=== PATIENT | male | born 1990 | race Caucasian/White ===

== ENCOUNTER 2016-10-28 20:00 | Inpatient (IN) | payer MEDICAID ==
[~2016-10-28] VITALS: Ht 170.2 cm; Wt 72.0 kg
[2016-10-28] MEDS ORDERED: PARoxetine HCL 10 MG TABLET PO SCH (21:00)
[2016-10-28] MEDS ORDERED: ZOLPIDEM TARTRATE 10 MG TABLET PO PRN (21:00)
[2016-10-28 21:44] VITALS: BP 123/85
[2016-10-29 06:40] LABS: BASOPHILS % (AUTO) 0.4 % (0.0-2.0); EOSINOPHILS % (AUTO) 0.5 % (1.0-6.0); HEMATOCRIT 44.4 % (41-53); HEMOGLOBIN 15.1 g/dL (13.5-17.5); LYMPHOCYTES # (AUTO) 4.1 K/uL (1.0-4.8); LYMPHOCYTES % (AUTO) 49.3 % (22.0-44.0); MEAN CORPUSCULAR HEMOGLOBIN 31.6 pg (26.0-34.0); MEAN CORPUSCULAR VOLUME 93 fL (80-100); MONOCYTES # (AUTO) 0.5 K/uL (0.1-1.0); MONOCYTES % (AUTO) 6.4 % (2.0-9.0); NEUTROPHILS # (AUTO) 3.6 K/uL (1.8-7.7); NEUTROPHILS % (AUTO) 43.4 % (40.0-70.0); PLATELET COUNT (AUTO) 169 K/uL (150-450); RED BLOOD CELL COUNT(AUTO) 4.78 MIL/uL (4.50-5.90); RED CELL DISTRIBUTION WIDTH 14.2 % (11.5-14.5); WHITE BLOOD COUNT (AUTO) 8.3 K/uL (4.5-11.0)
[2016-10-29 07:52] LABS: ALANINE AMINOTRANSFERASE 17 U/L (12-78); ALBUMIN 3.8 g/dL (3.4-5.0); ANION GAP 12 mmol/L (8-16); ASPARTATE AMINOTRANSFERASE 13 U/L (15-37); BILIRUBIN,TOTAL 0.9 mg/dL (0.1-1.0); CARBON DIOXIDE 26 mmol/L (22-29); CHLORIDE 103 mmol/L (98-107); CREATININE 0.97 mg/dL (0.60-1.30); GLOMERULAR FILTR. RATE CALC > 60 mL/min (>60); POTASSIUM 3.9 mmol/L (3.5-5.1); SODIUM SERUM 141 mmol/L (136-145); TOTAL PROTEIN, SERUM 7.1 g/dL (6.4-8.2); UREA NITROGEN, BLOOD 17 mg/dL (7-18)
[2016-10-29] MEDS ORDERED: VENLAFAXINE HCL 150 MG ER CAPSULE PO SCH (09:00)
[2016-10-29 10:07] VITALS: BP 107/72
[2016-10-29] MEDS ORDERED: VENLAFAXINE HCL 75 MG ER CAPSULE PO SCH (10:30)
[2016-10-29] MEDS: PARoxetine HCL 20 MG TABLET PO SCH (11:10)
[2016-10-29 11:31] LABS: APPEARANCE,URINE CLEAR (CLEAR); GLUCOSE, URINE (UA) NEGATIVE (NEGATIVE); KETONES,URINE 15 mg/dL (NEGATIVE); LEUKOCYTE ESTERASE ,URINE NEGATIVE (NEGATIVE); OCCULT BLOOD,URINE NEGATIVE (NEGATIVE); PH,URINE 5.5 (5.0-8.0); PROTEIN,URINE TRACE (NEGATIVE)
[2016-10-29 11:42] LABS: ADD UA MICROSCOPIC YES
[2016-10-29 11:44] LABS: RBC,URINE None Seen /HPF (0-2); WBC,URINE 0-2 /HPF (0-5)
[2016-10-29 18:10] VITALS: BP 107/72
[2016-10-30 09:15] VITALS: BP 110/61
[2016-10-30] MEDS: VENLAFAXINE HCL 75 MG ER CAPSULE PO SCH (09:41)
[2016-10-30] MEDS: PARoxetine HCL 20 MG TABLET PO SCH (09:42)
[2016-10-30 17:17] VITALS: BP 116/72
[2016-10-31] MEDS: PARoxetine HCL 20 MG TABLET PO SCH ×2 (09:00→11:35)
[2016-10-31] MEDS: VENLAFAXINE HCL 75 MG ER CAPSULE PO SCH ×2 (09:00→11:35)
[2016-10-31 11:31] VITALS: BP 100/64
[2016-10-31 16:27] VITALS: BP 118/68
[2016-11-01] MEDS: VENLAFAXINE HCL 75 MG ER CAPSULE PO SCH (09:43)
[2016-11-01] MEDS: PARoxetine HCL 20 MG TABLET PO SCH (09:43)
[2016-11-01 10:43] VITALS: BP 118/71
[2016-11-01 16:00] VITALS: BP 116/72
[2016-11-02 08:36] VITALS: BP 101/66
[2016-11-02] MEDS: PARoxetine HCL 20 MG TABLET PO SCH (08:45)
[2016-11-02 16:26] VITALS: BP 116/72
[2016-11-03 08:00] VITALS: BP 107/64
[2016-11-03 09:17] VITALS: BP 107/64
[2016-11-03] MEDS: PARoxetine HCL 20 MG TABLET PO SCH (11:15)
[2016-11-03 20:54] VITALS: BP 99/58
[2016-11-04 08:30] VITALS: BP 97/58
[2016-11-04] MEDS: DOCUSATE SODIUM 250 MG CAPSULE PO SCH (09:31)
[2016-11-04] MEDS: PARoxetine HCL 20 MG TABLET PO SCH (09:31)
[2016-11-04] MEDS: BREXPIPRAZOLE 1 MG TABLET PO SCH (10:48)
[2016-11-04 21:42] VITALS: BP 99/60
[2016-11-05] MEDS: BREXPIPRAZOLE 1 MG TABLET PO SCH (09:28)
[2016-11-05] MEDS: DOCUSATE SODIUM 250 MG CAPSULE PO SCH (09:29)
[2016-11-05] MEDS: PARoxetine HCL 20 MG TABLET PO SCH (09:29)
[2016-11-05 11:19] VITALS: BP 101/66
[2016-11-05 18:38] VITALS: BP 105/55
[2016-11-06 09:01] VITALS: BP 11/61
[2016-11-06] MEDS: PARoxetine HCL 20 MG TABLET PO SCH (09:30)
[2016-11-06] MEDS: BREXPIPRAZOLE 1 MG TABLET PO SCH (09:30)
[2016-11-06] MEDS: DOCUSATE SODIUM 250 MG CAPSULE PO SCH (09:30)
[2016-11-06] MEDS ORDERED: PHENYLEPHRINE/SHK LV/MIN OIL/PET 57 GM OINTMENT TP PRN (14:45)
[2016-11-06 17:35] VITALS: BP 102/56
[2016-11-07] MEDS: DOCUSATE SODIUM 250 MG CAPSULE PO SCH (10:15)
[2016-11-07] MEDS: PARoxetine HCL 20 MG TABLET PO SCH (10:15)
[2016-11-07] MEDS: BREXPIPRAZOLE 1 MG TABLET PO SCH (10:16)
[2016-11-07 10:18] VITALS: BP 96/59
[2016-11-07 16:46] VITALS: BP 97/53
[2016-11-08 08:08] VITALS: BP 98/56
[2016-11-08] MEDS: DOCUSATE SODIUM 250 MG CAPSULE PO SCH (09:44)
[2016-11-08] MEDS: PARoxetine HCL 20 MG TABLET PO SCH (09:45)
[2016-11-08] MEDS: BREXPIPRAZOLE 1 MG TABLET PO SCH (09:45)
[2016-11-08 16:22] VITALS: BP 92/64
[2016-11-09 09:13] VITALS: BP 95/56
[2016-11-09] MEDS: BREXPIPRAZOLE 1 MG TABLET PO SCH (09:29)
[2016-11-09] MEDS: PARoxetine HCL 20 MG TABLET PO SCH (09:29)
[2016-11-09] MEDS: DOCUSATE SODIUM 250 MG CAPSULE PO SCH (09:29)
[2016-11-09 16:24] VITALS: BP 113/63
[2016-11-09] MEDS: CYPROHEPTADINE HCL 4 MG TABLET PO SCH (20:57)
[2016-11-10 08:09] VITALS: BP 110/63
[2016-11-10] MEDS: BREXPIPRAZOLE 1 MG TABLET PO SCH (09:49)
[2016-11-10] MEDS: CYPROHEPTADINE HCL 4 MG TABLET PO SCH ×4 (09:49→20:47)
[2016-11-10] MEDS: PARoxetine HCL 20 MG TABLET PO SCH (09:50)
[2016-11-10] MEDS: DOCUSATE SODIUM 250 MG CAPSULE PO SCH (09:50)
[2016-11-10 16:09] VITALS: BP 98/63
[2016-11-11 08:06] VITALS: BP 101/62
[2016-11-11] MEDS: DOCUSATE SODIUM 250 MG CAPSULE PO SCH (08:39)
[2016-11-11] MEDS: CYPROHEPTADINE HCL 4 MG TABLET PO SCH ×4 (08:39→20:31)
[2016-11-11] MEDS: PARoxetine HCL 20 MG TABLET PO SCH (08:39)
[2016-11-11] MEDS: BREXPIPRAZOLE 1 MG TABLET PO SCH (08:39)
[2016-11-11] MEDS ORDERED: PARO20TA24 PO (09:38)
[2016-11-11] MEDS ORDERED: BREX1TAB PO (09:38)
[2016-11-11] MEDS ORDERED: CYPR4TAB35 PO (09:40)
[2016-11-11] MEDS ORDERED: DOCU250C91 PO (09:40)
[2016-11-11] MEDS ORDERED: BREXPIPRAZOLE 1 MG TABLET PO ONE (10:15)
[2016-11-11 18:35] VITALS: BP 93/55
[2016-11-12] MEDS: DOCUSATE SODIUM 250 MG CAPSULE PO SCH (08:32)
[2016-11-12] MEDS: PARoxetine HCL 20 MG TABLET PO SCH (08:32)
[2016-11-12] MEDS: BREXPIPRAZOLE 1 MG TABLET PO SCH (08:33)
[2016-11-12] MEDS: CYPROHEPTADINE HCL 4 MG TABLET PO SCH ×4 (08:33→20:47)
[2016-11-12 09:59] VITALS: BP 108/66
[2016-11-12 20:43] VITALS: BP 100/62
[2016-11-13 08:00] VITALS: BP 100/59
[2016-11-13] MEDS: PARoxetine HCL 20 MG TABLET PO SCH (11:44)
[2016-11-13] MEDS: CYPROHEPTADINE HCL 4 MG TABLET PO SCH ×4 (11:45→20:09)
[2016-11-13] MEDS: DOCUSATE SODIUM 250 MG CAPSULE PO SCH (11:45)
[2016-11-13] MEDS: BREXPIPRAZOLE 1 MG TABLET PO SCH (11:45)
[2016-11-13 18:09] VITALS: BP 116/76
[2016-11-14] MEDS: DOCUSATE SODIUM 250 MG CAPSULE PO SCH (08:29)
[2016-11-14] MEDS: PARoxetine HCL 20 MG TABLET PO SCH (08:30)
[2016-11-14] MEDS: CYPROHEPTADINE HCL 4 MG TABLET PO SCH ×4 (08:30→20:51)
[2016-11-14] MEDS: BREXPIPRAZOLE 1 MG TABLET PO SCH (08:30)
[2016-11-14 09:47] VITALS: BP 120/80
[2016-11-14 16:38] VITALS: BP 118/59
[2016-11-15 08:08] VITALS: BP 109/67
[2016-11-15] MEDS: DOCUSATE SODIUM 250 MG CAPSULE PO SCH (08:32)
[2016-11-15] MEDS: PARoxetine HCL 20 MG TABLET PO SCH (08:32)
[2016-11-15] MEDS: BREXPIPRAZOLE 1 MG TABLET PO SCH (08:33)
[2016-11-15] MEDS: CYPROHEPTADINE HCL 4 MG TABLET PO SCH ×4 (08:33→20:03)
[2016-11-15 17:38] VITALS: BP 98/58
[2016-11-16 08:22] VITALS: BP 98/58
[2016-11-16] MEDS: PARoxetine HCL 20 MG TABLET PO SCH (09:52)
[2016-11-16] MEDS: DOCUSATE SODIUM 250 MG CAPSULE PO SCH (09:52)
[2016-11-16] MEDS: CYPROHEPTADINE HCL 4 MG TABLET PO SCH ×4 (09:53→20:40)
[2016-11-16] MEDS: BREXPIPRAZOLE 2 MG TABLET PO SCH (09:53)
[2016-11-16 17:13] VITALS: BP 102/67
[2016-11-17] MEDS: DOCUSATE SODIUM 250 MG CAPSULE PO SCH (09:02)
[2016-11-17] MEDS: PARoxetine HCL 20 MG TABLET PO SCH (09:02)
[2016-11-17] MEDS: CYPROHEPTADINE HCL 4 MG TABLET PO SCH ×4 (09:03→20:16)
[2016-11-17] MEDS: BREXPIPRAZOLE 2 MG TABLET PO SCH (09:03)
[2016-11-17 09:42] VITALS: BP 116/76
[2016-11-17 17:31] VITALS: BP 102/62
[2016-11-18] MEDS: CYPROHEPTADINE HCL 4 MG TABLET PO SCH ×4 (08:33→20:45)
[2016-11-18] MEDS: DOCUSATE SODIUM 250 MG CAPSULE PO SCH (08:34)
[2016-11-18] MEDS: PARoxetine HCL 20 MG TABLET PO SCH (08:34)
[2016-11-18] MEDS: BREXPIPRAZOLE 2 MG TABLET PO SCH (08:34)
[2016-11-18 09:57] VITALS: BP 99/58
[2016-11-18 22:33] VITALS: BP 109/73
[2016-11-19 08:00] VITALS: BP 98/56
[2016-11-19] MEDS: CYPROHEPTADINE HCL 4 MG TABLET PO SCH ×4 (09:09→20:24)
[2016-11-19] MEDS: BREXPIPRAZOLE 2 MG TABLET PO SCH (09:09)
[2016-11-19] MEDS: DOCUSATE SODIUM 250 MG CAPSULE PO SCH (09:10)
[2016-11-19] MEDS: PARoxetine HCL 20 MG TABLET PO SCH (09:10)
[2016-11-19 19:20] VITALS: BP 101/64
[2016-11-20] MEDS: DOCUSATE SODIUM 250 MG CAPSULE PO SCH (09:16)
[2016-11-20] MEDS: PARoxetine HCL 20 MG TABLET PO SCH (09:16)
[2016-11-20] MEDS: CYPROHEPTADINE HCL 4 MG TABLET PO SCH ×4 (09:17→20:30)
[2016-11-20] MEDS: BREXPIPRAZOLE 2 MG TABLET PO SCH (09:17)
[2016-11-20 09:30] VITALS: BP 103/53
[2016-11-20 17:17] VITALS: BP 103/72
[2016-11-21] MEDS: DOCUSATE SODIUM 250 MG CAPSULE PO SCH (08:16)
[2016-11-21] MEDS: BREXPIPRAZOLE 2 MG TABLET PO SCH (08:17)
[2016-11-21] MEDS: PARoxetine HCL 20 MG TABLET PO SCH (08:17)
[2016-11-21] MEDS: CYPROHEPTADINE HCL 4 MG TABLET PO SCH ×4 (08:17→20:35)
[2016-11-21 08:48] VITALS: BP 96/57
[2016-11-21 18:24] VITALS: BP 118/69
[2016-11-21] MEDS: LORazepam 2 MG TABLET PO PRN (19:16)
[2016-11-22 08:46] VITALS: BP 96/55
[2016-11-22] MEDS: PARoxetine HCL 20 MG TABLET PO SCH (09:09)
[2016-11-22] MEDS: DOCUSATE SODIUM 250 MG CAPSULE PO SCH (09:09)
[2016-11-22] MEDS: CYPROHEPTADINE HCL 4 MG TABLET PO SCH ×4 (09:10→20:14)
[2016-11-22] MEDS: BREXPIPRAZOLE 2 MG TABLET PO SCH (09:10)
[2016-11-22 11:20] VITALS: BP 107/57
[2016-11-22] MEDS: LORazepam 2 MG TABLET PO PRN (12:38)
[2016-11-22 17:11] VITALS: BP 112/64
[2016-11-23 08:38] VITALS: BP 102/55
[2016-11-23] MEDS: BREXPIPRAZOLE 2 MG TABLET PO SCH (09:00)
[2016-11-23] MEDS: DOCUSATE SODIUM 250 MG CAPSULE PO SCH (09:00)
[2016-11-23] MEDS: CYPROHEPTADINE HCL 4 MG TABLET PO SCH ×4 (09:00→20:19)
[2016-11-23] MEDS: PARoxetine HCL 20 MG TABLET PO SCH (09:00)
[2016-11-23] MEDS: LORazepam 2 MG TABLET PO PRN (17:27)
[2016-11-23 19:50] VITALS: BP 104/62
[2016-11-24 05:22] LABS: GLUCOSE,POINT OF CARE 105 MG/DL (70-110)
[2016-11-24 08:44] VITALS: BP 113/57
[2016-11-24] MEDS: CYPROHEPTADINE HCL 4 MG TABLET PO SCH ×4 (09:25→20:56)
[2016-11-24] MEDS: BREXPIPRAZOLE 2 MG TABLET PO SCH (09:25)
[2016-11-24] MEDS: DOCUSATE SODIUM 250 MG CAPSULE PO SCH (09:26)
[2016-11-24] MEDS: PARoxetine HCL 20 MG TABLET PO SCH (09:26)
[2016-11-24 16:39] VITALS: BP 103/52
[2016-11-25] MEDS: DOCUSATE SODIUM 250 MG CAPSULE PO SCH (09:16)
[2016-11-25] MEDS: PARoxetine HCL 20 MG TABLET PO SCH (09:16)
[2016-11-25] MEDS: CYPROHEPTADINE HCL 4 MG TABLET PO SCH ×4 (09:16→20:22)
[2016-11-25] MEDS: BREXPIPRAZOLE 2 MG TABLET PO SCH (09:17)
[2016-11-25 10:34] VITALS: BP 100/58
[2016-11-25 19:35] VITALS: BP 102/58
[2016-11-26] MEDS ORDERED: BREX2TAB PO (07:29)
[2016-11-26 08:00] VITALS: BP 104/58
[2016-11-26] MEDS: CYPROHEPTADINE HCL 4 MG TABLET PO SCH (09:45)
[2016-11-26] MEDS: DOCUSATE SODIUM 250 MG CAPSULE PO SCH (09:45)
[2016-11-26] MEDS: PARoxetine HCL 20 MG TABLET PO SCH (09:45)
[2016-11-26] MEDS: BREXPIPRAZOLE 2 MG TABLET PO SCH (09:46)
== END 2016-11-26 10:30 | disposition home or self-care (01) | DRG 751 ==
LOC: 3EI 20:00
PROVIDERS: ADMIT Psychiatry & Neurology Child & Adolescent Psychiatry; ATTEND Psychiatry & Neurology Child & Adolescent Psychiatry
DX: F33.3 Major depressive disorder, recurrent, severe with psychotic symptoms (principal); R45.851 Suicidal ideations; R63.0 Anorexia; K59.00 Constipation, unspecified; G47.00 Insomnia, unspecified; R51 Headache; R45.87 Impulsiveness; Z79.899 Other long term (current) drug therapy; Z68.24 Body mass index [BMI] 24.0-24.9, adult
CPT/HCPCS: 80307; 82962; 87081; 97161; 97165

== ENCOUNTER 2016-12-12 17:27 | Inpatient (IN) | payer MEDICAID, OTHER ==
[~2016-12-12] VITALS: Ht 167.6 cm; Wt 75.4 kg
[~2016-12-12 17:27] MED LIST: BREX2TAB PO; CYPR4TAB35 PO; DOCU250C91 PO; PARO20TA24 PO
[2016-12-12 18:00] LABS: BASOPHILS # (AUTO) 0.03 K/uL (0.00-0.20); BASOPHILS % (AUTO) 0.5 % (0.0-2.0); EOSINOPHILS # (AUTO) 0.04 K/uL (0.00-0.70); EOSINOPHILS % (AUTO) 0.63 % (1.0-6.0); HEMATOCRIT 38.2 % (41-53); HEMOGLOBIN 12.8 g/dL (13.5-17.5); LYMPHOCYTES # (AUTO) 2.5 K/uL (1.0-4.8); LYMPHOCYTES % (AUTO) 39.9 % (22.0-44.0); MEAN CORPUSCULAR HEMOGLOBIN 32.3 pg (26.0-34.0); MEAN CORPUSCULAR HGB CONC 33.6 G/dL (31.0-37.0); MEAN CORPUSCULAR VOLUME 96 fL (80-100); MONOCYTES # (AUTO) 0.3 K/uL (0.1-1.0); MONOCYTES % (AUTO) 4.8 % (2.0-9.0); NEUTROPHILS # (AUTO) 3.4 K/uL (1.8-7.7); NEUTROPHILS % (AUTO) 54.3 % (40.0-70.0); PLATELET COUNT (AUTO) 160 K/uL (150-450); RED BLOOD CELL COUNT(AUTO) 3.98 MIL/uL (4.50-5.90); RED CELL DISTRIBUTION WIDTH 14.2 % (11.5-14.5); WHITE BLOOD COUNT (AUTO) 6.3 K/uL (4.5-11.0)
[2016-12-12 18:21] LABS: ANION GAP 9 mmol/L (8-16); CALCIUM, TOTAL 8.9 mg/dL (8.8-10.5); CARBON DIOXIDE 30 mmol/L (22-29); CHLORIDE 102 mmol/L (98-107); CREATININE 0.75 mg/dL (0.60-1.30); GLOMERULAR FILTR. RATE CALC > 60 mL/min (>60); POTASSIUM 3.1 mmol/L (3.5-5.1); SODIUM SERUM 141 mmol/L (136-145); UREA NITROGEN, BLOOD 12 mg/dL (7-18)
[2016-12-12 18:27] LABS: ALANINE AMINOTRANSFERASE 190 U/L (12-78); ALBUMIN 3.9 g/dL (3.4-5.0); ASPARTATE AMINOTRANSFERASE 88 U/L (15-37); BILIRUBIN,TOTAL 0.7 mg/dL (0.1-1.0); TOTAL PROTEIN, SERUM 7.5 g/dL (6.4-8.2)
[2016-12-12] MEDS ORDERED: LORazepam 2 MG TABLET PO ONE (19:30)
[2016-12-12] MEDS ORDERED: POTASSIUM CHLORIDE 20 MEQ ER TABLET PO ONE (20:00)
[2016-12-12] MEDS ORDERED: HALOPERIDOL 5 MG TABLET PO PRN (20:15)
[2016-12-12] MEDS ORDERED: LORazepam 2 MG TABLET PO PRN (20:15)
[2016-12-12] MEDS ORDERED: ZOLPIDEM TARTRATE 10 MG TABLET PO PRN (20:15)
[2016-12-12 20:44] LABS: CHOL/HDL RATIO 3.6 (4.2-7.3)
[2016-12-12 22:11] VITALS: BP 134/82
[2016-12-13 08:12] VITALS: BP 105/55
[2016-12-13 08:16] VITALS: BP 105/55
[2016-12-13] MEDS ORDERED: ONDANSETRON HCL 4 MG TABLET PO PRN (08:30)
[2016-12-13] MEDS ORDERED: IBUPROFEN 600 MG TABLET PO PRN (08:30)
[2016-12-13] MEDS ORDERED: BENZOCAINE/MENTHOL LOZENGE [8 LOZENGES/PACKET] MM PRN (08:30)
[2016-12-13] MEDS ORDERED: MAG HYDROX/AL HYDROX/SIMETH ES 30 ML SUSPENSION UDCUP PO PRN (08:30)
[2016-12-13] MEDS ORDERED: MAGNESIUM HYDROXIDE SUSPENSION 30 ML UDCUP PO PRN (08:30)
[2016-12-13] MEDS ORDERED: CloNIDine HCL 0.1 MG TABLET PO PRN (08:30)
[2016-12-13] MEDS ORDERED: BACITRACIN 28.4 GM OINTMENT TP PRN (08:30)
[2016-12-13] MEDS ORDERED: PETROLATUM,WHITE 71 GM JELLY TP PRN (08:30)
[2016-12-13] MEDS ORDERED: LOPERAMIDE HCL 2 MG CAPSULE PO PRN (08:30)
[2016-12-13] MEDS ORDERED: ACETAMINOPHEN 325 MG TABLET PO PRN (08:30)
[2016-12-13] MEDS ORDERED: ALBUTEROL SULFATE HFA 90 MCG/PUFF 8 GM INHALER IH PRN (08:30)
[2016-12-13] MEDS: PARoxetine HCL 20 MG TABLET PO SCH (08:50)
[2016-12-13] MEDS ORDERED: POTASSIUM CHLORIDE 20 MEQ ER TABLET PO ONE (09:30)
[2016-12-13 17:01] VITALS: BP 117/67
[2016-12-14 08:10] VITALS: BP 102/55
[2016-12-14] MEDS: PARoxetine HCL 20 MG TABLET PO SCH (08:49)
[2016-12-14 16:31] VITALS: BP 113/90
[2016-12-15 08:30] VITALS: BP 111/69
[2016-12-15] MEDS: PARoxetine HCL 20 MG TABLET PO SCH (08:42)
[2016-12-16 14:25] LABS: HEPATITIS Bs ANTIGEN SCREEN P Negative (Negative); HEPATITIS C AB SCREEN <0.1 s/co ratio (0.0-0.9)
== END 2016-12-15 14:42 | disposition home or self-care (01) | DRG 754 ==
LOC: EMS 17:29 → 3EI 20:30
PROVIDERS: ADMIT Psychiatry & Neurology Psychiatry; ATTEND Psychiatry & Neurology Child & Adolescent Psychiatry
DX: F32.9 Major depressive disorder, single episode, unspecified (principal); R45.851 Suicidal ideations; F25.9 Schizoaffective disorder, unspecified; R74.0 Nonspecific elevation of levels of transaminase and lactic acid dehydrogenase [LDH]; E87.6 Hypokalemia; F41.9 Anxiety disorder, unspecified; K46.9 Unspecified abdominal hernia without obstruction or gangrene; K59.00 Constipation, unspecified; G47.00 Insomnia, unspecified; Z53.21 Procedure and treatment not carried out due to patient leaving prior to being seen by health care provider; Z79.899 Other long term (current) drug therapy
CPT/HCPCS: 80074; 84132; 99285; G0480

== ENCOUNTER 2017-01-31 15:03 | Emergency (ER) | payer MEDICAID, OTHER ==
[~2017-01-31] VITALS: Ht 175.3 cm; Wt 90.9 kg
[~2017-01-31 15:03] MED LIST changes: -BREX2TAB PO; -CYPR4TAB35 PO; -DOCU250C91 PO
[2017-01-31] MEDS ORDERED: ARIP5TAB9 PO (15:06)
[2017-01-31 15:37] LABS: BASOPHILS % (AUTO) 0.5 % (0.0-2.0); EOSINOPHILS % (AUTO) 0.8 % (1.0-6.0); HEMOGLOBIN 14.8 g/dL (13.5-17.5); LYMPHOCYTES # (AUTO) 2.9 K/uL (1.0-4.8); LYMPHOCYTES % (AUTO) 46.6 % (22.0-44.0); MEAN CORPUSCULAR HEMOGLOBIN 31.8 pg (26.0-34.0); MEAN CORPUSCULAR HGB CONC 34.4 G/dL (31.0-37.0); MEAN CORPUSCULAR VOLUME 93 fL (80-100); MONOCYTES # (AUTO) 0.4 K/uL (0.1-1.0); MONOCYTES % (AUTO) 6.4 % (2.0-9.0); NEUTROPHILS # (AUTO) 2.8 K/uL (1.8-7.7); NEUTROPHILS % (AUTO) 45.7 % (40.0-70.0); PLATELET COUNT (AUTO) 155 K/uL (150-450); RED BLOOD CELL COUNT(AUTO) 4.65 MIL/uL (4.50-5.90); RED CELL DISTRIBUTION WIDTH 12.9 % (11.5-14.5); WHITE BLOOD COUNT (AUTO) 6.1 K/uL (4.5-11.0)
[2017-01-31 15:42] LABS: ANION GAP 8 mmol/L (8-16); CALCIUM, TOTAL 8.7 mg/dL (8.8-10.5); CARBON DIOXIDE 29 mmol/L (22-29); CHLORIDE 104 mmol/L (98-107); CREATININE 0.76 mg/dL (0.60-1.30); GLOMERULAR FILTR. RATE CALC > 60 mL/min (>60); POTASSIUM 3.7 mmol/L (3.5-5.1); SODIUM SERUM 141 mmol/L (136-145); UREA NITROGEN, BLOOD 14 mg/dL (7-18)
[2017-01-31 15:49] LABS: ALANINE AMINOTRANSFERASE 37 U/L (12-78); ALBUMIN 3.9 g/dL (3.4-5.0); ASPARTATE AMINOTRANSFERASE 21 U/L (15-37); BILIRUBIN,TOTAL 0.5 mg/dL (0.1-1.0); TOTAL PROTEIN, SERUM 7.4 g/dL (6.4-8.2)
[2017-01-31] MEDS ORDERED: IBUPROFEN 600 MG TABLET PO ONE (17:15)
[2017-01-31 17:18] VITALS: BP 125/77
== END 2017-01-31 17:23 | disposition home or self-care (01) ==
LOC: EMS 15:04
DX: F25.9 Schizoaffective disorder, unspecified (principal)
CPT/HCPCS: 36415; 80053; 80307; 85025; 99284; G0480

== ENCOUNTER 2017-01-31 20:48 | Emergency (ER) | payer OTHER ==
[~2017-01-31] VITALS: Ht 172.7 cm; Wt 90.9 kg
[~2017-01-31 20:48] MED LIST changes: +ARIP5TAB9 PO
[2017-01-31 22:06] VITALS: BP 132/75
== END 2017-01-31 22:08 | disposition home or self-care (01) ==
LOC: EMS 20:49
DX: F41.9 Anxiety disorder, unspecified (principal); R45.851 Suicidal ideations
CPT/HCPCS: 99284

== ENCOUNTER 2017-02-15 18:48 | Inpatient (IN) | payer MEDICAID, OTHER ==
[~2017-02-15] VITALS: Ht 172.7 cm; Wt 87.5 kg
[2017-02-15] MEDS ORDERED: DOCU250C91 PO (19:11)
[2017-02-15] MEDS ORDERED: CYPR4TAB35 PO (19:11)
[2017-02-15] MEDS ORDERED: DIVA500T35 PO (19:11)
[2017-02-15 20:27] LABS: BASOPHILS % (AUTO) 0.3 % (0.0-2.0); EOSINOPHILS % (AUTO) 0.8 % (1.0-6.0); HEMATOCRIT 41.8 % (41-53); HEMOGLOBIN 14.5 g/dL (13.5-17.5); LYMPHOCYTES # (AUTO) 2.8 K/uL (1.0-4.8); LYMPHOCYTES % (AUTO) 39.8 % (22.0-44.0); MEAN CORPUSCULAR HEMOGLOBIN 31.4 pg (26.0-34.0); MEAN CORPUSCULAR HGB CONC 34.6 G/dL (31.0-37.0); MEAN CORPUSCULAR VOLUME 91 fL (80-100); MONOCYTES # (AUTO) 0.4 K/uL (0.1-1.0); MONOCYTES % (AUTO) 6.4 % (2.0-9.0); NEUTROPHILS # (AUTO) 3.7 K/uL (1.8-7.7); NEUTROPHILS % (AUTO) 52.7 % (40.0-70.0); PLATELET COUNT (AUTO) 158 K/uL (150-450); RED CELL DISTRIBUTION WIDTH 12.7 % (11.5-14.5)
[2017-02-15 20:35] LABS: ANION GAP 8 mmol/L (8-16); CALCIUM, TOTAL 9.2 mg/dL (8.8-10.5); CARBON DIOXIDE 31 mmol/L (22-29); CHLORIDE 107 mmol/L (98-107); GLOMERULAR FILTR. RATE CALC > 60 mL/min (>60); SODIUM SERUM 146 mmol/L (136-145); UREA NITROGEN, BLOOD 17 mg/dL (7-18)
[2017-02-15 20:40] LABS: ALANINE AMINOTRANSFERASE 34 U/L (12-78); ALBUMIN 3.8 g/dL (3.4-5.0); ASPARTATE AMINOTRANSFERASE 21 U/L (15-37); BILIRUBIN,TOTAL 0.4 mg/dL (0.1-1.0); TOTAL PROTEIN, SERUM 7.6 g/dL (6.4-8.2)
[2017-02-15] MEDS ORDERED: LORazepam 2 MG TABLET PO PRN (22:15)
[2017-02-15] MEDS ORDERED: HALOPERIDOL 5 MG TABLET PO PRN (22:15)
[2017-02-15] MEDS ORDERED: ZOLPIDEM TARTRATE 10 MG TABLET PO PRN (22:15)
[2017-02-16 01:37] LABS: APPEARANCE,URINE CLEAR (CLEAR); GLUCOSE, URINE (UA) NEGATIVE (NEGATIVE); KETONES,URINE NEGATIVE (NEGATIVE); LEUKOCYTE ESTERASE ,URINE NEGATIVE (NEGATIVE); OCCULT BLOOD,URINE NEGATIVE (NEGATIVE); PROTEIN,URINE NEGATIVE (NEGATIVE)
[2017-02-16 01:38] LABS: ADD UA MICROSCOPIC NO
[2017-02-16 02:43] VITALS: BP 117/74
[2017-02-16 06:51] LABS: CHOL/HDL RATIO 3.5 (4.2-7.3)
[2017-02-16] MEDS ORDERED: BACITRACIN 28.4 GM OINTMENT TP PRN (10:45)
[2017-02-16] MEDS ORDERED: ACETAMINOPHEN 325 MG TABLET PO PRN (10:45)
[2017-02-16] MEDS ORDERED: BENZOCAINE/MENTHOL LOZENGE [8 LOZENGES/PACKET] MM PRN (10:45)
[2017-02-16] MEDS ORDERED: ALBUTEROL SULFATE HFA 90 MCG/PUFF 8 GM INHALER IH PRN (10:45)
[2017-02-16] MEDS ORDERED: PETROLATUM,WHITE 71 GM JELLY TP PRN (10:45)
[2017-02-16] MEDS ORDERED: MAG HYDROX/AL HYDROX/SIMETH ES 30 ML SUSPENSION UDCUP PO PRN (10:45)
[2017-02-16] MEDS ORDERED: ONDANSETRON HCL 4 MG TABLET PO PRN (10:45)
[2017-02-16] MEDS ORDERED: MAGNESIUM HYDROXIDE SUSPENSION 30 ML UDCUP PO PRN (10:45)
[2017-02-16] MEDS ORDERED: LOPERAMIDE HCL 2 MG CAPSULE PO PRN (10:45)
[2017-02-16] MEDS ORDERED: CloNIDine HCL 0.1 MG TABLET PO PRN (10:45)
[2017-02-16 11:33] VITALS: BP 108/56
[2017-02-16 16:50] VITALS: BP 108/60
[2017-02-16] MEDS: PARoxetine HCL 20 MG TABLET PO SCH (20:14)
[2017-02-17 03:05] VITALS: BP 119/74
[2017-02-17] MEDS: IBUPROFEN 600 MG TABLET PO PRN (03:05)
[2017-02-17 07:29] LABS: THYROID STIMULATING HORMONE 0.51 uIU/mL (0.36-3.74)
[2017-02-17 08:00] VITALS: BP 115/60
[2017-02-17] MEDS: ARIPiprazole 5 MG TABLET PO SCH (08:34)
[2017-02-17 16:30] VITALS: BP 127/78
[2017-02-17] MEDS: PARoxetine HCL 20 MG TABLET PO SCH (21:26)
[2017-02-18] MEDS: ARIPiprazole 5 MG TABLET PO SCH (09:26)
[2017-02-18] MEDS: IBUPROFEN 600 MG TABLET PO PRN (09:37)
[2017-02-18 09:40] VITALS: BP 110/61
[2017-02-18 10:37] VITALS: BP 125/74
[2017-02-18 11:19] VITALS: BP 125/74
[2017-02-18 16:50] VITALS: BP 124/66
[2017-02-18] MEDS: PARoxetine HCL 20 MG TABLET PO SCH (20:21)
[2017-02-19 08:30] VITALS: BP 121/74
[2017-02-19] MEDS: ARIPiprazole 5 MG TABLET PO SCH (09:10)
[2017-02-19] MEDS: IBUPROFEN 600 MG TABLET PO PRN (09:10)
== END 2017-02-19 13:32 | disposition home or self-care (01) | DRG 751 ==
LOC: EMS 18:50 → EEVIPCON 18:50 → AHU 22:13 → 3EI 23:53
PROVIDERS: ADMIT Psychiatry & Neurology Psychiatry; ATTEND Psychiatry & Neurology Psychiatry
DX: F33.3 Major depressive disorder, recurrent, severe with psychotic symptoms (principal); E87.0 Hyperosmolality and hypernatremia; R45.851 Suicidal ideations; G47.00 Insomnia, unspecified; K59.00 Constipation, unspecified; R45.87 Impulsiveness; Z63.9 Problem related to primary support group, unspecified
CPT/HCPCS: 84295; 84443; 99285; G0480

== ENCOUNTER 2017-08-21 16:37 | Inpatient (IN) | payer MEDICAID, OTHER ==
[~2017-08-21] VITALS: Ht 170.2 cm; Wt 75.2 kg
[~2017-08-21 16:37] MED LIST changes: +ARIP5TAB8 PO; -ARIP5TAB9 PO
[2017-08-21 17:27] LABS: BASOPHILS # (AUTO) 0.04 K/uL (0.00-0.20); BASOPHILS % (AUTO) 0.5 % (0.0-2.0); EOSINOPHILS # (AUTO) 0.08 K/uL (0.00-0.70); EOSINOPHILS % (AUTO) 1.08 % (1.0-6.0); HEMATOCRIT 47.2 % (41-53); HEMOGLOBIN 15.9 g/dL (13.5-17.5); LYMPHOCYTES # (AUTO) 2.4 K/uL (1.0-4.8); LYMPHOCYTES % (AUTO) 34.2 % (22.0-44.0); MEAN CORPUSCULAR HEMOGLOBIN 30.1 pg (26.0-34.0); MEAN CORPUSCULAR HGB CONC 33.7 G/dL (31.0-37.0); MEAN CORPUSCULAR VOLUME 89 fL (80-100); MONOCYTES # (AUTO) 0.4 K/uL (0.1-1.0); MONOCYTES % (AUTO) 5.5 % (2.0-9.0); NEUTROPHILS # (AUTO) 4.1 K/uL (1.8-7.7); NEUTROPHILS % (AUTO) 58.7 % (40.0-70.0); PLATELET COUNT (AUTO) 106 K/uL (150-450); RED BLOOD CELL COUNT(AUTO) 5.29 MIL/uL (4.50-5.90); RED CELL DISTRIBUTION WIDTH 13.2 % (11.5-14.5)
[2017-08-21 17:40] LABS: ANION GAP 14 mmol/L (8-16); CALCIUM, TOTAL 9.4 mg/dL (8.8-10.5); CARBON DIOXIDE 25 mmol/L (22-29); CHLORIDE 99 mmol/L (98-107); CREATININE 0.95 mg/dL (0.60-1.30); GLOMERULAR FILTR. RATE CALC > 60 mL/min (>60); GLUCOSE,RANDOM 66 mg/dL (70-110); POTASSIUM 3.9 mmol/L (3.5-5.1); SODIUM SERUM 138 mmol/L (136-145); UREA NITROGEN, BLOOD 16 mg/dL (7-18)
[2017-08-21 17:46] LABS: ALANINE AMINOTRANSFERASE 30 U/L (12-78); ALBUMIN 4.3 g/dL (3.4-5.0); ALKALINE PHOSPHATASE 80 U/L (46-116); ASPARTATE AMINOTRANSFERASE 24 U/L (15-37); BILIRUBIN,TOTAL 1.1 mg/dL (0.1-1.0); TOTAL PROTEIN, SERUM 8.6 g/dL (6.4-8.2)
[2017-08-21] MEDS ORDERED: DEXTROSE 50%-WATER 25 GM/50 ML SYRINGE IVP ONE (22:45)
[2017-08-21 22:57] LABS: GLUCOSE,POINT OF CARE 60 MG/DL (70-110)
[2017-08-22 00:27] LABS: GLUCOSE,POINT OF CARE 284 MG/DL (70-110)
[2017-08-22] MEDS ORDERED: INFLUENZA VIRUS VACCINE QVS 2017-18 (3YR+)/PF 60 MCG/0.5 ML SYRINGE IM ONE (05:15)
[2017-08-22] MEDS ORDERED: HALOPERIDOL 5 MG TABLET PO PRN (06:45)
[2017-08-22] MEDS ORDERED: ZOLPIDEM TARTRATE 10 MG TABLET PO PRN (06:45)
[2017-08-22] MEDS ORDERED: LORazepam 2 MG TABLET PO PRN (06:45)
[2017-08-22] MEDS ORDERED: ACETAMINOPHEN 325 MG TABLET PO PRN (07:30)
[2017-08-22] MEDS ORDERED: PETROLATUM,WHITE 71 GM JELLY TP PRN (07:30)
[2017-08-22] MEDS ORDERED: MAGNESIUM HYDROXIDE SUSPENSION 30 ML UDCUP PO PRN (07:30)
[2017-08-22] MEDS ORDERED: ALBUTEROL SULFATE HFA 90 MCG/PUFF 8 GM INHALER IH PRN (07:30)
[2017-08-22] MEDS ORDERED: INSULIN ASPART 100 UNITS/ML SQ PRN (07:30)
[2017-08-22] MEDS ORDERED: MAG HYDROX/AL HYDROX/SIMETH ES 30 ML SUSPENSION UDCUP PO PRN (07:30)
[2017-08-22] MEDS ORDERED: DEXTROSE 50%-WATER 25 GM/50 ML SYRINGE IVP PRN (07:30)
[2017-08-22] MEDS ORDERED: LOPERAMIDE HCL 2 MG CAPSULE PO PRN (07:30)
[2017-08-22] MEDS ORDERED: CloNIDine HCL 0.1 MG TABLET PO PRN (07:30)
[2017-08-22] MEDS ORDERED: BACITRACIN 28.4 GM OINTMENT TP PRN (07:30)
[2017-08-22] MEDS ORDERED: BENZOCAINE/MENTHOL LOZENGE [8 LOZENGES/PACKET] MM PRN (07:45)
[2017-08-22 10:00] VITALS: BP 97/64
[2017-08-22 11:47] LABS: GLUCOSE,POINT OF CARE 82 MG/DL (70-110)
[2017-08-22 17:07] LABS: GLUCOSE,POINT OF CARE 73 MG/DL (70-110)
[2017-08-22 19:30] VITALS: BP 119/79
[2017-08-22 20:37] LABS: GLUCOSE,POINT OF CARE 73 MG/DL (70-110)
[2017-08-23 05:51] LABS: HEMOGLOBIN A1C 4.8 % (4.5-6.2)
[2017-08-23 06:03] LABS: GLUCOSE,POINT OF CARE 72 MG/DL (70-110)
[2017-08-23 07:09] LABS: CHOL/HDL RATIO 5.4 (4.2-7.3); THYROID STIMULATING HORMONE 1.47 uIU/mL (0.36-3.74)
[2017-08-23 08:12] VITALS: BP 103/64
[2017-08-23] MEDS: ARIPiprazole 5 MG TABLET PO SCH (09:43)
[2017-08-23] MEDS: PARoxetine HCL 20 MG TABLET PO SCH (09:43)
[2017-08-23] MEDS: IBUPROFEN 600 MG TABLET PO PRN (11:35)
[2017-08-23 11:52] LABS: GLUCOSE,POINT OF CARE 95 MG/DL (70-110)
[2017-08-23] MEDS: ONDANSETRON HCL 4 MG TABLET PO PRN (11:58)
[2017-08-23 12:01] VITALS: BP 114/76
[2017-08-23 17:27] LABS: GLUCOSE,POINT OF CARE 208 MG/DL (70-110)
[2017-08-23 20:01] VITALS: BP 121/78
[2017-08-23 21:07] LABS: GLUCOSE,POINT OF CARE 136 MG/DL (70-110)
[2017-08-24 07:08] LABS: GLUCOSE,POINT OF CARE 89 MG/DL (70-110)
[2017-08-24] MEDS: PARoxetine HCL 20 MG TABLET PO SCH ×2 (08:13→08:22)
[2017-08-24] MEDS: ARIPiprazole 5 MG TABLET PO SCH ×2 (08:13→08:22)
[2017-08-24 09:00] VITALS: BP 106/64
[2017-08-24 11:33] LABS: GLUCOSE,POINT OF CARE 88 MG/DL (70-110)
[2017-08-24] MEDS: ONDANSETRON HCL 4 MG TABLET PO PRN (12:32)
[2017-08-25 08:00] VITALS: BP 115/70
[2017-08-25] MEDS: PARoxetine HCL 20 MG TABLET PO SCH (09:33)
[2017-08-25] MEDS: ARIPiprazole 5 MG TABLET PO SCH (09:33)
[2017-08-26 09:20] VITALS: BP 109/74
[2017-08-26] MEDS: PARoxetine HCL 20 MG TABLET PO SCH (10:05)
[2017-08-26] MEDS: ARIPiprazole 5 MG TABLET PO SCH (10:05)
[2017-08-27 09:57] VITALS: BP 128/95
[2017-08-27] MEDS: PARoxetine HCL 20 MG TABLET PO SCH (12:31)
[2017-08-27] MEDS: ARIPiprazole 5 MG TABLET PO SCH (12:31)
[2017-08-27 16:30] VITALS: BP 122/75
[2017-08-28 08:05] VITALS: BP 114/82
[2017-08-28] MEDS: ARIPiprazole 5 MG TABLET PO SCH (09:00)
[2017-08-28] MEDS: PARoxetine HCL 20 MG TABLET PO SCH (09:00)
[2017-08-29 08:52] VITALS: BP 134/74
[2017-08-29] MEDS: PARoxetine HCL 20 MG TABLET PO SCH (09:30)
[2017-08-29] MEDS: ARIPiprazole 5 MG TABLET PO SCH (09:30)
[2017-08-29 18:02] VITALS: BP 136/75
[2017-08-30 08:15] VITALS: BP 142/92
[2017-08-30] MEDS: ARIPiprazole 5 MG TABLET PO SCH (10:26)
[2017-08-30] MEDS: PARoxetine HCL 20 MG TABLET PO SCH (10:26)
[2017-08-30 16:27] VITALS: BP 125/79
[2017-08-31 08:51] VITALS: BP 112/86
[2017-08-31] MEDS: ARIPiprazole 5 MG TABLET PO SCH (09:40)
[2017-08-31] MEDS: PARoxetine HCL 20 MG TABLET PO SCH (09:40)
[2017-08-31 12:30] VITALS: BP 112/86
[2017-08-31] MEDS: IBUPROFEN 600 MG TABLET PO PRN (12:35)
== END 2017-08-31 18:45 | disposition home or self-care (01) | DRG 750 ==
LOC: EMS 16:39 → AHU 22:44 → 3EI 08-24 19:23
PROVIDERS: ADMIT Psychiatry & Neurology Child & Adolescent Psychiatry; ATTEND Psychiatry & Neurology Child & Adolescent Psychiatry
PROC: 3E0234Z Introduction of Serum, Toxoid and Vaccine into Muscle, Percutaneous Approach (ICD-10-PCS; principal; 2017-08-22)
DX: F25.9 Schizoaffective disorder, unspecified (principal); D69.6 Thrombocytopenia, unspecified; F23 Brief psychotic disorder; F41.9 Anxiety disorder, unspecified; G47.00 Insomnia, unspecified; K59.00 Constipation, unspecified; R73.9 Hyperglycemia, unspecified; Z23 Encounter for immunization; Z79.899 Other long term (current) drug therapy
CPT/HCPCS: 82306; 82962; 83036; 84443; 85049; 96374; 99285; G0480; Q0162

== ENCOUNTER 2017-10-19 17:04 | Inpatient (IN) | payer MEDICAID ==
[~2017-10-19] VITALS: Ht 170.2 cm; Wt 62.9 kg
[2017-10-19] MEDS ORDERED: ZOLPIDEM TARTRATE 10 MG TABLET PO PRN (19:30)
[2017-10-19] MEDS ORDERED: HALOPERIDOL 5 MG TABLET PO PRN (19:30)
[2017-10-19] MEDS ORDERED: LORazepam 2 MG TABLET PO PRN (19:30)
[2017-10-19 20:00] VITALS: BP 102/60
[2017-10-19] MEDS ORDERED: INFLUENZA VIRUS VACCINE QVS 2017-18 (3YR+)/PF 60 MCG/0.5 ML SYRINGE IM ONE (20:00)
[2017-10-20 06:46] LABS: BASOPHILS % (AUTO) 0.6 % (0.0-2.0); EOSINOPHILS % (AUTO) 1.2 % (1.0-6.0); HEMATOCRIT 41.4 % (41-53); HEMOGLOBIN 14.6 g/dL (13.5-17.5); LYMPHOCYTES # (AUTO) 2.5 K/uL (1.0-4.8); LYMPHOCYTES % (AUTO) 53.9 % (22.0-44.0); MEAN CORPUSCULAR HEMOGLOBIN 30.3 pg (26.0-34.0); MEAN CORPUSCULAR HGB CONC 35.3 G/dL (31.0-37.0); MEAN CORPUSCULAR VOLUME 86 fL (80-100); MONOCYTES # (AUTO) 0.3 K/uL (0.1-1.0); MONOCYTES % (AUTO) 6.6 % (2.0-9.0); NEUTROPHILS # (AUTO) 1.8 K/uL (1.8-7.7); NEUTROPHILS % (AUTO) 37.7 % (40.0-70.0); PLATELET COUNT (AUTO) 100 K/uL (150-450); RED BLOOD CELL COUNT(AUTO) 4.82 MIL/uL (4.50-5.90); RED CELL DISTRIBUTION WIDTH 15.4 % (11.5-14.5)
[2017-10-20 07:13] LABS: HEMOGLOBIN A1C 4.6 % (4.5-6.2)
[2017-10-20 07:19] LABS: ALANINE AMINOTRANSFERASE 17 U/L (12-78); ALKALINE PHOSPHATASE 67 U/L (46-116); ANION GAP 7 mmol/L (8-16); ASPARTATE AMINOTRANSFERASE 16 U/L (15-37); CALCIUM, TOTAL 9.4 mg/dL (8.8-10.5); CARBON DIOXIDE 30 mmol/L (22-29); CHLORIDE 101 mmol/L (98-107); CHOL/HDL RATIO 5.4 (4.2-7.3); CHOLESTEROL 172 mg/dL (131-200); CREATININE 0.77 mg/dL (0.60-1.30); FREE T4 (FREE THYROXINE) 0.97 ng/dL (0.76-1.46); GLOMERULAR FILTR. RATE CALC > 60 mL/min (>60); GLUCOSE,RANDOM 76 mg/dL (70-110); HDL CHOLESTEROL 32 mg/dL (40-60); LDL CHOL (CALC.) 123 mg/dL (0-130); POTASSIUM 3.5 mmol/L (3.5-5.1); SODIUM SERUM 138 mmol/L (136-145); THYROID STIMULATING HORMONE 1.05 uIU/mL (0.36-3.74); TOTAL PROTEIN, SERUM 7.6 g/dL (6.4-8.2); TRIGLYCERIDES 84 mg/dL (15-150); UREA NITROGEN, BLOOD 14 mg/dL (7-18)
[2017-10-20] MEDS ORDERED: MAG HYDROX/AL HYDROX/SIMETH ES 30 ML SUSPENSION UDCUP PO PRN (08:45)
[2017-10-20] MEDS ORDERED: BENZOCAINE/MENTHOL LOZENGE [8 LOZENGES/PACKET] MM PRN (08:45)
[2017-10-20] MEDS ORDERED: ALBUTEROL SULFATE HFA 90 MCG/PUFF 8 GM INHALER IH PRN (08:45)
[2017-10-20] MEDS ORDERED: BACITRACIN 28.4 GM OINTMENT TP PRN (08:45)
[2017-10-20] MEDS ORDERED: MAGNESIUM HYDROXIDE SUSPENSION 30 ML UDCUP PO PRN (08:45)
[2017-10-20] MEDS ORDERED: CloNIDine HCL 0.1 MG TABLET PO PRN (08:45)
[2017-10-20] MEDS ORDERED: LOPERAMIDE HCL 2 MG CAPSULE PO PRN (08:45)
[2017-10-20] MEDS ORDERED: ONDANSETRON HCL 4 MG TABLET PO PRN (08:45)
[2017-10-20] MEDS ORDERED: PETROLATUM,WHITE 71 GM JELLY TP PRN (08:45)
[2017-10-20] MEDS ORDERED: IBUPROFEN 600 MG TABLET PO PRN (08:45)
[2017-10-20] MEDS ORDERED: ACETAMINOPHEN 325 MG TABLET PO PRN (08:45)
[2017-10-20] MEDS: CHOLECALCIFEROL (VIT D3) 1,000 UNITS TABLET PO SCH ×2 (09:00→10:14)
[2017-10-20 09:12] VITALS: BP 102/62
[2017-10-21 09:04] VITALS: BP 108/55
[2017-10-21] MEDS: ARIPiprazole 5 MG TABLET PO SCH (10:19)
[2017-10-21] MEDS: PARoxetine HCL 20 MG TABLET PO SCH (10:20)
[2017-10-21] MEDS: CHOLECALCIFEROL (VIT D3) 1,000 UNITS TABLET PO SCH (10:20)
[2017-10-21 18:53] VITALS: BP 96/55
[2017-10-22 06:45] LABS: HEMATOCRIT 42.4 % (41-53); HEMOGLOBIN 14.9 g/dL (13.5-17.5); MEAN CORPUSCULAR HGB CONC 35.1 G/dL (31.0-37.0); MEAN CORPUSCULAR VOLUME 85 fL (80-100); PLATELET COUNT (AUTO) 104 K/uL (150-450); RED BLOOD CELL COUNT(AUTO) 4.97 MIL/uL (4.50-5.90); RED CELL DISTRIBUTION WIDTH 15.2 % (11.5-14.5)
[2017-10-22 07:35] LABS: ANION GAP 17 mmol/L (8-16); CALCIUM, TOTAL 9.3 mg/dL (8.8-10.5); CARBON DIOXIDE 26 mmol/L (22-29); CHLORIDE 101 mmol/L (98-107); CREATININE 0.82 mg/dL (0.60-1.30); GLOMERULAR FILTR. RATE CALC > 60 mL/min (>60); GLUCOSE,RANDOM 60 mg/dL (70-110); PHOSPHORUS 4.4 mg/dL (2.5-4.9); POTASSIUM 3.7 mmol/L (3.5-5.1); SODIUM SERUM 144 mmol/L (136-145); UREA NITROGEN, BLOOD 18 mg/dL (7-18)
[2017-10-22 07:56] LABS: EOSINOPHILS % (MANUAL) 1 % (1-6); LYMPHOCYTES % (MANUAL) 66 % (22-44); MONOCYTES % (MANUAL) 2 % (2-9); SEGMENTED NEUTROPHILS % 31 % (40-70)
[2017-10-22] MEDS: MULTIVITAMINS WITH MINERALS, THERAPEUTIC TABLET PO SCH (08:00)
[2017-10-22] MEDS: CHOLECALCIFEROL (VIT D3) 1,000 UNITS TABLET PO SCH (09:00)
[2017-10-22] MEDS: ARIPiprazole 5 MG TABLET PO SCH (09:00)
[2017-10-22] MEDS: PARoxetine HCL 20 MG TABLET PO SCH (09:00)
[2017-10-22 09:02] VITALS: BP 109/65
[2017-10-22 16:14] VITALS: BP 103/59
[2017-10-23 07:06] LABS: ALANINE AMINOTRANSFERASE 16 U/L (12-78); ALBUMIN 3.8 g/dL (3.4-5.0); ALKALINE PHOSPHATASE 70 U/L (46-116); ANION GAP 8 mmol/L (8-16); ASPARTATE AMINOTRANSFERASE 13 U/L (15-37); BILIRUBIN,TOTAL 0.7 mg/dL (0.1-1.0); CARBON DIOXIDE 31 mmol/L (22-29); CHLORIDE 100 mmol/L (98-107); CREATININE 1.05 mg/dL (0.60-1.30); GLOMERULAR FILTR. RATE CALC > 60 mL/min (>60); GLUCOSE,RANDOM 123 mg/dL (70-110); POTASSIUM 3.1 mmol/L (3.5-5.1); SODIUM SERUM 139 mmol/L (136-145); TOTAL PROTEIN, SERUM 7.2 g/dL (6.4-8.2); UREA NITROGEN, BLOOD 15 mg/dL (7-18)
[2017-10-23] MEDS: MULTIVITAMINS WITH MINERALS, THERAPEUTIC TABLET PO SCH ×2 (08:00→10:58)
[2017-10-23 08:30] VITALS: BP 93/51
[2017-10-23] MEDS: CHOLECALCIFEROL (VIT D3) 1,000 UNITS TABLET PO SCH ×2 (09:00→10:58)
[2017-10-23] MEDS: ARIPiprazole 5 MG TABLET PO SCH ×3 (09:00→13:55)
[2017-10-23] MEDS: PARoxetine HCL 20 MG TABLET PO SCH ×2 (09:00→10:58)
[2017-10-23] MEDS ORDERED: POTASSIUM CHLORIDE 20 MEQ ER TABLET PO ONE (15:30)
[2017-10-23 18:11] VITALS: BP 105/67
[2017-10-24] MEDS ORDERED: POTASSIUM CHLORIDE 20 MEQ ER TABLET PO ONE ×2 (06:00→09:45)
[2017-10-24 06:30] LABS: ANION GAP 10 mmol/L (8-16); CALCIUM, TOTAL 9.4 mg/dL (8.8-10.5); CARBON DIOXIDE 30 mmol/L (22-29); CHLORIDE 103 mmol/L (98-107); CREATININE 0.67 mg/dL (0.60-1.30); GLOMERULAR FILTR. RATE CALC > 60 mL/min (>60); GLUCOSE,RANDOM 82 mg/dL (70-110); POTASSIUM 3.1 mmol/L (3.5-5.1); SODIUM SERUM 143 mmol/L (136-145); UREA NITROGEN, BLOOD 13 mg/dL (7-18)
[2017-10-24] MEDS: MULTIVITAMINS WITH MINERALS, THERAPEUTIC TABLET PO SCH (08:00)
[2017-10-24] MEDS: CHOLECALCIFEROL (VIT D3) 1,000 UNITS TABLET PO SCH (09:00)
[2017-10-24] MEDS: PARoxetine HCL 20 MG TABLET PO SCH (09:00)
[2017-10-24] MEDS: ARIPiprazole 5 MG TABLET PO SCH (09:00)
[2017-10-24 09:10] VITALS: BP 98/59
[2017-10-25] MEDS: MULTIVITAMINS WITH MINERALS, THERAPEUTIC TABLET PO SCH (08:00)
[2017-10-25] MEDS: PARoxetine HCL 20 MG TABLET PO SCH (09:00)
[2017-10-25] MEDS: ARIPiprazole 5 MG TABLET PO SCH (09:00)
[2017-10-25] MEDS: CHOLECALCIFEROL (VIT D3) 1,000 UNITS TABLET PO SCH (09:00)
[2017-10-25 09:16] VITALS: BP 107/58
[2017-10-25 20:50] VITALS: BP 102/61
[2017-10-26] MEDS: MULTIVITAMINS WITH MINERALS, THERAPEUTIC TABLET PO SCH (08:00)
[2017-10-26] MEDS: ARIPiprazole 5 MG TABLET PO SCH (09:00)
[2017-10-26] MEDS: CHOLECALCIFEROL (VIT D3) 1,000 UNITS TABLET PO SCH (09:00)
[2017-10-26] MEDS: PARoxetine HCL 20 MG TABLET PO SCH (09:00)
[2017-10-26 09:29] VITALS: BP 97/64
[2017-10-26 19:40] VITALS: BP 97/67
[2017-10-27] MEDS: MULTIVITAMINS WITH MINERALS, THERAPEUTIC TABLET PO SCH (08:00)
[2017-10-27] MEDS: PARoxetine HCL 20 MG TABLET PO SCH (09:00)
[2017-10-27] MEDS: ARIPiprazole 5 MG TABLET PO SCH (09:00)
[2017-10-27] MEDS: CHOLECALCIFEROL (VIT D3) 1,000 UNITS TABLET PO SCH (09:00)
[2017-10-27 09:33] VITALS: BP 106/67
[2017-10-27 16:58] VITALS: BP 124/76
[2017-10-28] MEDS: MULTIVITAMINS WITH MINERALS, THERAPEUTIC TABLET PO SCH (08:00)
[2017-10-28 08:55] VITALS: BP 106/74
[2017-10-28] MEDS: PARoxetine HCL 20 MG TABLET PO SCH (09:00)
[2017-10-28] MEDS: ARIPiprazole 5 MG TABLET PO SCH (09:00)
[2017-10-28] MEDS: CHOLECALCIFEROL (VIT D3) 1,000 UNITS TABLET PO SCH (09:00)
[2017-10-28 09:15] LABS: ANION GAP 13 mmol/L (8-16); CALCIUM, TOTAL 9.4 mg/dL (8.8-10.5); CARBON DIOXIDE 29 mmol/L (22-29); CHLORIDE 102 mmol/L (98-107); CREATININE 0.94 mg/dL (0.60-1.30); GLOMERULAR FILTR. RATE CALC > 60 mL/min (>60); GLUCOSE,RANDOM 62 mg/dL (70-110); POTASSIUM 3.9 mmol/L (3.5-5.1); SODIUM SERUM 144 mmol/L (136-145); UREA NITROGEN, BLOOD 23 mg/dL (7-18)
[2017-10-28 17:00] VITALS: BP 104/68
[2017-10-29] MEDS: MULTIVITAMINS WITH MINERALS, THERAPEUTIC TABLET PO SCH (08:00)
[2017-10-29 08:18] VITALS: BP 107/68
[2017-10-29] MEDS: PARoxetine HCL 20 MG TABLET PO SCH (09:00)
[2017-10-29] MEDS: CHOLECALCIFEROL (VIT D3) 1,000 UNITS TABLET PO SCH (09:00)
[2017-10-29] MEDS: ARIPiprazole 5 MG TABLET PO SCH (09:00)
[2017-10-29] MEDS: CYPROHEPTADINE HCL 4 MG TABLET PO SCH ×2 (17:00→20:24)
[2017-10-29 19:37] VITALS: BP 128/78
[2017-10-30] MEDS: MULTIVITAMINS WITH MINERALS, THERAPEUTIC TABLET PO SCH (08:00)
[2017-10-30] MEDS: CHOLECALCIFEROL (VIT D3) 1,000 UNITS TABLET PO SCH (09:00)
[2017-10-30] MEDS: CYPROHEPTADINE HCL 4 MG TABLET PO SCH ×2 (09:00→13:00)
[2017-10-30] MEDS: PARoxetine HCL 20 MG TABLET PO SCH (09:00)
[2017-10-30] MEDS: ARIPiprazole 5 MG TABLET PO SCH (09:00)
[2017-10-30 16:48] VITALS: BP 104/69
== END 2017-10-30 17:15 | disposition short-term general hospital (02) | DRG 750 ==
LOC: 3EI 19:37
PROVIDERS: ADMIT Psychiatry & Neurology Psychiatry; ATTEND Psychiatry & Neurology Psychiatry
DX: F20.0 Paranoid schizophrenia (principal); D69.6 Thrombocytopenia, unspecified; F33.2 Major depressive disorder, recurrent severe without psychotic features; R45.851 Suicidal ideations; Z91.14 Patient's other noncompliance with medication regimen; E55.9 Vitamin D deficiency, unspecified; F94.0 Selective mutism; G47.00 Insomnia, unspecified; K59.00 Constipation, unspecified; Z79.899 Other long term (current) drug therapy; Z91.19 Patient's noncompliance with other medical treatment and regimen
CPT/HCPCS: 83036; 83735; 84100; 84439; 84443; 85007

== ENCOUNTER 2017-10-30 17:20 | Inpatient (IN) | payer OTHER ==
[~2017-10-30] VITALS: Ht 170.2 cm; Wt 67.5 kg
[2017-10-30 19:30] VITALS: BP 108/72
[2017-10-30] MEDS ORDERED: LORazepam 2 MG TABLET PO PRN (20:00)
[2017-10-30] MEDS ORDERED: ALBUTEROL SULFATE HFA 90 MCG/PUFF 8 GM INHALER IH PRN (20:00)
[2017-10-30] MEDS ORDERED: MAGNESIUM HYDROXIDE SUSPENSION 30 ML UDCUP PO PRN ×2 (20:00→20:30)
[2017-10-30] MEDS ORDERED: MAG HYDROX/AL HYDROX/SIMETH ES 30 ML SUSPENSION UDCUP PO PRN (20:00)
[2017-10-30] MEDS ORDERED: CloNIDine HCL 0.1 MG TABLET PO PRN (20:00)
[2017-10-30] MEDS ORDERED: ACETAMINOPHEN 325 MG TABLET PO PRN ×2 (20:00→20:30)
[2017-10-30] MEDS ORDERED: ONDANSETRON HCL 4 MG TABLET PO PRN (20:00)
[2017-10-30] MEDS ORDERED: PETROLATUM,WHITE 71 GM JELLY TP PRN (20:00)
[2017-10-30] MEDS ORDERED: HALOPERIDOL 5 MG TABLET PO PRN (20:00)
[2017-10-30] MEDS ORDERED: IBUPROFEN 600 MG TABLET PO PRN (20:00)
[2017-10-30] MEDS ORDERED: BACITRACIN 28.4 GM OINTMENT TP PRN (20:00)
[2017-10-30] MEDS ORDERED: ZOLPIDEM TARTRATE 10 MG TABLET PO PRN (20:00)
[2017-10-30] MEDS ORDERED: LOPERAMIDE HCL 2 MG CAPSULE PO PRN (20:00)
[2017-10-30] MEDS ORDERED: ONDANSETRON HCL 4 MG/2 ML VIAL IVP PRN ×2 (20:00→20:30)
[2017-10-30] MEDS ORDERED: BISACODYL 10 MG RECTAL RECTAL SUPPOSITORY PR PRN (20:30)
[2017-10-30] MEDS ORDERED: 0.9% SODIUM CHLORIDE 10 ML SYRINGE IVP PRN (20:30)
[2017-10-30] MEDS: DOCUSATE SODIUM 100 MG CAPSULE PO SCH (21:00)
[2017-10-30] MEDS: CYPROHEPTADINE HCL 4 MG TABLET PO SCH (21:00)
[2017-10-30 21:30] LABS: BASOPHILS % (AUTO) 0.5 % (0.0-2.0); EOSINOPHILS % (AUTO) 0.5 % (1.0-6.0); HEMATOCRIT 45.2 % (41-53); LYMPHOCYTES # (AUTO) 2.2 K/uL (1.0-4.8); LYMPHOCYTES % (AUTO) 31.1 % (22.0-44.0); MEAN CORPUSCULAR HEMOGLOBIN 30.2 pg (26.0-34.0); MEAN CORPUSCULAR HGB CONC 35.3 G/dL (31.0-37.0); MEAN CORPUSCULAR VOLUME 86 fL (80-100); MONOCYTES # (AUTO) 0.4 K/uL (0.1-1.0); MONOCYTES % (AUTO) 5.1 % (2.0-9.0); NEUTROPHILS # (AUTO) 4.3 K/uL (1.8-7.7); NEUTROPHILS % (AUTO) 62.8 % (40.0-70.0); PLATELET COUNT (AUTO) 121 K/uL (150-450); RED BLOOD CELL COUNT(AUTO) 5.29 MIL/uL (4.50-5.90); RED CELL DISTRIBUTION WIDTH 15.4 % (11.5-14.5)
[2017-10-30 22:26] LABS: ANION GAP 16 mmol/L (8-16); CALCIUM, TOTAL 9.4 mg/dL (8.8-10.5); CARBON DIOXIDE 24 mmol/L (22-29); CHLORIDE 101 mmol/L (98-107); CREATININE 0.88 mg/dL (0.60-1.30); GLOMERULAR FILTR. RATE CALC > 60 mL/min (>60); GLUCOSE,RANDOM 122 mg/dL (70-110); POTASSIUM 3.6 mmol/L (3.5-5.1); SODIUM SERUM 141 mmol/L (136-145); UREA NITROGEN, BLOOD 21 mg/dL (7-18)
[2017-10-30 23:08] VITALS: BP 108/74
[2017-10-31] MEDS ORDERED: ACETAMINOPHEN 325 MG TABLET PO PRN (01:15)
[2017-10-31 05:30] VITALS: BP 114/81
[2017-10-31 07:43] VITALS: BP 113/76
[2017-10-31] MEDS: MULTIVITAMINS WITH MINERALS, THERAPEUTIC TABLET PO SCH (08:30)
[2017-10-31] MEDS: ARIPiprazole 5 MG TABLET PO SCH (09:00)
[2017-10-31] MEDS: DOCUSATE SODIUM 100 MG CAPSULE PO SCH ×2 (09:00→20:45)
[2017-10-31] MEDS: CHOLECALCIFEROL (VIT D3) 1,000 UNITS TABLET PO SCH (09:00)
[2017-10-31] MEDS: PANTOPRAZOLE SODIUM 40 MG/VIAL IVP SCH (09:00)
[2017-10-31] MEDS: CYPROHEPTADINE HCL 4 MG TABLET PO SCH ×4 (09:00→20:45)
[2017-10-31] MEDS: PARoxetine HCL 20 MG TABLET PO SCH (09:00)
[2017-10-31 15:42] VITALS: BP 112/74
[2017-10-31] MEDS: DEXTROSE 5%-0.45% SODIUM CHL 1,000 ML IV SCH (16:42)
[2017-10-31 20:05] VITALS: BP 92/54
[2017-10-31 23:36] VITALS: BP 105/73
[2017-11-01] MEDS: DEXTROSE 5%-0.45% SODIUM CHL 1,000 ML IV SCH ×3 (03:08→22:25)
[2017-11-01 04:36] VITALS: BP 105/68
[2017-11-01 06:22] LABS: BASOPHILS % (AUTO) 0.4 % (0.0-2.0); EOSINOPHILS % (AUTO) 1.8 % (1.0-6.0); HEMOGLOBIN 13.7 g/dL (13.5-17.5); LYMPHOCYTES # (AUTO) 3.3 K/uL (1.0-4.8); LYMPHOCYTES % (AUTO) 52.7 % (22.0-44.0); MEAN CORPUSCULAR HEMOGLOBIN 30.2 pg (26.0-34.0); MEAN CORPUSCULAR HGB CONC 36.1 G/dL (31.0-37.0); MEAN CORPUSCULAR VOLUME 84 fL (80-100); MONOCYTES # (AUTO) 0.4 K/uL (0.1-1.0); MONOCYTES % (AUTO) 7.1 % (2.0-9.0); NEUTROPHILS # (AUTO) 2.4 K/uL (1.8-7.7); PLATELET COUNT (AUTO) 102 K/uL (150-450); RED BLOOD CELL COUNT(AUTO) 4.55 MIL/uL (4.50-5.90); RED CELL DISTRIBUTION WIDTH 15.2 % (11.5-14.5)
[2017-11-01 06:30] LABS: ALANINE AMINOTRANSFERASE 13 U/L (12-78); ALBUMIN 3.6 g/dL (3.4-5.0); ALKALINE PHOSPHATASE 63 U/L (46-116); ANION GAP 10 mmol/L (8-16); ASPARTATE AMINOTRANSFERASE 13 U/L (15-37); BILIRUBIN,TOTAL 1.3 mg/dL (0.1-1.0); CALCIUM, TOTAL 8.8 mg/dL (8.8-10.5); CARBON DIOXIDE 29 mmol/L (22-29); CHLORIDE 98 mmol/L (98-107); CREATININE 0.76 mg/dL (0.60-1.30); GLOMERULAR FILTR. RATE CALC > 60 mL/min (>60); GLUCOSE,RANDOM 107 mg/dL (70-110); PHOSPHORUS 4.5 mg/dL (2.5-4.9); SODIUM SERUM 137 mmol/L (136-145); TOTAL PROTEIN, SERUM 7.1 g/dL (6.4-8.2); UREA NITROGEN, BLOOD 15 mg/dL (7-18)
[2017-11-01 06:44] LABS: POTASSIUM 2.7 mmol/L (3.5-5.1)
[2017-11-01] MEDS ORDERED: MAGNESIUM OXIDE 400 MG TABLET PO PRN (07:45)
[2017-11-01] MEDS ORDERED: MAGNESIUM SULFATE 2 GM in DEXTROSE 5%-WATER 50 ML IV PRN (07:45)
[2017-11-01] MEDS ORDERED: MAGNESIUM SULFATE 4 GM/WATER 100 ML IV PRN (07:45)
[2017-11-01] MEDS ORDERED: POTASSIUM CHLORIDE 20 MEQ ER TABLET PO PRN (07:45)
[2017-11-01 08:02] VITALS: BP 100/66
[2017-11-01] MEDS: MULTIVITAMINS WITH MINERALS, THERAPEUTIC TABLET PO SCH (08:30)
[2017-11-01] MEDS: ARIPiprazole 5 MG TABLET PO SCH (09:00)
[2017-11-01] MEDS: DOCUSATE SODIUM 100 MG CAPSULE PO SCH ×2 (09:00→21:00)
[2017-11-01] MEDS: PARoxetine HCL 20 MG TABLET PO SCH (09:00)
[2017-11-01] MEDS: PANTOPRAZOLE SODIUM 40 MG/VIAL IVP SCH (09:00)
[2017-11-01] MEDS: CYPROHEPTADINE HCL 4 MG TABLET PO SCH ×4 (09:00→21:00)
[2017-11-01] MEDS: CHOLECALCIFEROL (VIT D3) 1,000 UNITS TABLET PO SCH (09:00)
[2017-11-01] MEDS: POTASSIUM CHL 10 MEQ/WATER 50 ML IV PRN ×3 (09:38→12:50)
[2017-11-01 11:20] VITALS: BP 116/75
[2017-11-01 15:40] VITALS: BP 112/68
[2017-11-01 20:00] VITALS: BP 94/57
[2017-11-02] VITALS (7 sets, daily range): BP systolic 92–110; BP diastolic 58–68
[2017-11-02 06:38] LABS: ANION GAP 7 mmol/L (8-16); CALCIUM, TOTAL 8.6 mg/dL (8.8-10.5); CARBON DIOXIDE 28 mmol/L (22-29); CHLORIDE 102 mmol/L (98-107); CREATININE 0.62 mg/dL (0.60-1.30); GLOMERULAR FILTR. RATE CALC > 60 mL/min (>60); GLUCOSE,RANDOM 99 mg/dL (70-110); SODIUM SERUM 137 mmol/L (136-145); UREA NITROGEN, BLOOD 8 mg/dL (7-18)
[2017-11-02] MEDS: MULTIVITAMINS WITH MINERALS, THERAPEUTIC TABLET PO SCH (08:13)
[2017-11-02] MEDS: PANTOPRAZOLE SODIUM 40 MG/VIAL IVP SCH (08:13)
[2017-11-02] MEDS: CYPROHEPTADINE HCL 4 MG TABLET PO SCH ×4 (08:14→21:00)
[2017-11-02] MEDS: CHOLECALCIFEROL (VIT D3) 1,000 UNITS TABLET PO SCH (08:14)
[2017-11-02] MEDS: PARoxetine HCL 20 MG TABLET PO SCH (08:14)
[2017-11-02] MEDS: ARIPiprazole 5 MG TABLET PO SCH (08:14)
[2017-11-02] MEDS: DOCUSATE SODIUM 100 MG CAPSULE PO SCH ×2 (08:14→21:00)
[2017-11-02] MEDS: DEXTROSE 5%-0.45% SODIUM CHL 1,000 ML IV SCH ×2 (08:20→17:49)
[2017-11-02] MEDS ORDERED: SODIUM CHLORIDE 0.9% 500 ML IV ONE (11:55)
[2017-11-02] MEDS: POTASSIUM CHL 10 MEQ/WATER 50 ML IV PRN ×4 (11:59→16:20)
[2017-11-03 05:00] VITALS: BP 94/62
[2017-11-03] MEDS: DEXTROSE 5%-0.45% SODIUM CHL 1,000 ML IV SCH (06:39)
[2017-11-03] MEDS: MULTIVITAMINS WITH MINERALS, THERAPEUTIC TABLET PO SCH (07:34)
[2017-11-03] MEDS: ARIPiprazole 5 MG TABLET PO SCH (07:35)
[2017-11-03] MEDS: DOCUSATE SODIUM 100 MG CAPSULE PO SCH ×2 (07:35→21:00)
[2017-11-03] MEDS: CHOLECALCIFEROL (VIT D3) 1,000 UNITS TABLET PO SCH (07:35)
[2017-11-03] MEDS: CYPROHEPTADINE HCL 4 MG TABLET PO SCH ×4 (07:35→21:00)
[2017-11-03] MEDS: PARoxetine HCL 20 MG TABLET PO SCH (07:35)
[2017-11-03] MEDS: PANTOPRAZOLE SODIUM 40 MG/VIAL IVP SCH (08:42)
[2017-11-03 08:46] VITALS: BP 99/60
[2017-11-03 11:48] VITALS: BP 95/58
[2017-11-03 15:00] VITALS: BP 99/62
[2017-11-03 19:56] VITALS: BP 101/62
[2017-11-03 23:49] VITALS: BP 94/59
[2017-11-04 04:45] VITALS: BP 99/60
[2017-11-04] MEDS: DEXTROSE 5%-0.45% SODIUM CHL 1,000 ML IV SCH (04:46)
[2017-11-04 08:23] VITALS: BP 101/56
[2017-11-04] MEDS: MULTIVITAMINS WITH MINERALS, THERAPEUTIC TABLET PO SCH (08:30)
[2017-11-04] MEDS: PARoxetine HCL 20 MG TABLET PO SCH (08:59)
[2017-11-04] MEDS: ARIPiprazole 5 MG TABLET PO SCH (08:59)
[2017-11-04] MEDS: DOCUSATE SODIUM 100 MG CAPSULE PO SCH ×2 (08:59→20:14)
[2017-11-04] MEDS: CYPROHEPTADINE HCL 4 MG TABLET PO SCH ×4 (09:00→20:14)
[2017-11-04] MEDS: CHOLECALCIFEROL (VIT D3) 1,000 UNITS TABLET PO SCH (09:00)
[2017-11-04 12:16] VITALS: BP 99/64
[2017-11-04] MEDS: PANTOPRAZOLE SODIUM 40 MG/VIAL IVP SCH (13:51)
[2017-11-04 16:09] VITALS: BP 106/71
[2017-11-04 20:00] VITALS: BP_SYST 100; BP_SYST 138; BP_DIAS 63; BP_DIAS 65
[2017-11-05 03:13] VITALS: BP 100/63
[2017-11-05 07:40] VITALS: BP 95/65
[2017-11-05] MEDS: MULTIVITAMINS WITH MINERALS, THERAPEUTIC TABLET PO SCH (08:30)
[2017-11-05] MEDS: DOCUSATE SODIUM 100 MG CAPSULE PO SCH ×2 (09:00→21:55)
[2017-11-05] MEDS: ARIPiprazole 5 MG TABLET PO SCH (09:00)
[2017-11-05] MEDS: PARoxetine HCL 20 MG TABLET PO SCH (09:00)
[2017-11-05] MEDS: CHOLECALCIFEROL (VIT D3) 1,000 UNITS TABLET PO SCH (09:00)
[2017-11-05] MEDS: CYPROHEPTADINE HCL 4 MG TABLET PO SCH ×4 (09:00→21:55)
[2017-11-05 12:25] LABS: BASOPHILS % (AUTO) 0.6 % (0.0-2.0); EOSINOPHILS % (AUTO) 1.9 % (1.0-6.0); HEMATOCRIT 36.4 % (41-53); LYMPHOCYTES # (AUTO) 1.8 K/uL (1.0-4.8); LYMPHOCYTES % (AUTO) 38.4 % (22.0-44.0); MEAN CORPUSCULAR HEMOGLOBIN 30.2 pg (26.0-34.0); MEAN CORPUSCULAR HGB CONC 35.7 G/dL (31.0-37.0); MEAN CORPUSCULAR VOLUME 85 fL (80-100); MONOCYTES # (AUTO) 0.3 K/uL (0.1-1.0); MONOCYTES % (AUTO) 6.2 % (2.0-9.0); NEUTROPHILS # (AUTO) 2.4 K/uL (1.8-7.7); NEUTROPHILS % (AUTO) 52.9 % (40.0-70.0); PLATELET COUNT (AUTO) 86 K/uL (150-450); RED CELL DISTRIBUTION WIDTH 15.1 % (11.5-14.5)
[2017-11-05 12:59] LABS: PLATELET MORPHOLOGY COMMENT GIANT PLTS PRESENT
[2017-11-05 13:03] LABS: ALANINE AMINOTRANSFERASE 67 U/L (12-78); ALBUMIN 3.2 g/dL (3.4-5.0); ALKALINE PHOSPHATASE 59 U/L (46-116); ANION GAP 5 mmol/L (8-16); ASPARTATE AMINOTRANSFERASE 57 U/L (15-37); BILIRUBIN,TOTAL 0.9 mg/dL (0.1-1.0); CALCIUM, TOTAL 8.7 mg/dL (8.8-10.5); CARBON DIOXIDE 30 mmol/L (22-29); CHLORIDE 104 mmol/L (98-107); CREATININE 0.71 mg/dL (0.60-1.30); GLOMERULAR FILTR. RATE CALC > 60 mL/min (>60); GLUCOSE,RANDOM 95 mg/dL (70-110); PHOSPHORUS 4.6 mg/dL (2.5-4.9); POTASSIUM 3.3 mmol/L (3.5-5.1); SODIUM SERUM 139 mmol/L (136-145); TOTAL PROTEIN, SERUM 6.4 g/dL (6.4-8.2); UREA NITROGEN, BLOOD 3 mg/dL (7-18)
[2017-11-05 13:55] VITALS: BP 96/59
[2017-11-05] MEDS: PANTOPRAZOLE SODIUM 40 MG/VIAL IVP SCH (15:21)
[2017-11-05] MEDS: POTASSIUM CHL 10 MEQ/WATER 50 ML IV PRN ×3 (18:56→23:42)
[2017-11-05 19:00] VITALS: BP 92/57
[2017-11-05 23:00] VITALS: BP 100/59
[2017-11-06] MEDS: DEXTROSE 5%-0.45% SODIUM CHL 1,000 ML IV SCH ×2 (04:55→22:00)
[2017-11-06 05:00] VITALS: BP 97/89
[2017-11-06 06:29] LABS: HEMOGLOBIN A1C 4.7 % (4.5-6.2)
[2017-11-06 06:54] LABS: CHOL/HDL RATIO 5.1 (4.2-7.3); THYROID STIMULATING HORMONE 2.34 uIU/mL (0.36-3.74)
[2017-11-06 07:35] VITALS: BP 92/61
[2017-11-06 11:00] VITALS: BP 92/63
[2017-11-06 15:23] VITALS: BP 96/59
[2017-11-06] MEDS ORDERED: HALOPERIDOL LACTATE 5 MG/ML VIAL IM PRN (16:00)
[2017-11-06] MEDS: PARoxetine HCL 20 MG TABLET PO SCH (17:22)
[2017-11-06 19:34] VITALS: BP 112/78
[2017-11-06] MEDS: HALOPERIDOL 5 MG TABLET PO SCH (21:01)
[2017-11-06 23:03] VITALS: BP 97/64
[2017-11-07] MEDS: POTASSIUM CHL 10 MEQ/WATER 50 ML IV PRN ×4 (00:57→07:24)
[2017-11-07 03:55] VITALS: BP 110/80
[2017-11-07 07:52] VITALS: BP 109/69
[2017-11-07] MEDS: CYPROHEPTADINE HCL 4 MG TABLET PO SCH ×4 (08:27→21:43)
[2017-11-07] MEDS: CHOLECALCIFEROL (VIT D3) 1,000 UNITS TABLET PO SCH (08:27)
[2017-11-07] MEDS: PANTOPRAZOLE SODIUM 40 MG/VIAL IVP SCH (08:28)
[2017-11-07] MEDS: HALOPERIDOL 5 MG TABLET PO SCH ×2 (08:29→21:43)
[2017-11-07] MEDS: MULTIVITAMINS WITH MINERALS, THERAPEUTIC TABLET PO SCH (08:29)
[2017-11-07] MEDS: DOCUSATE SODIUM 100 MG CAPSULE PO SCH ×2 (08:29→21:43)
[2017-11-07] MEDS: PARoxetine HCL 20 MG TABLET PO SCH (08:30)
[2017-11-07] MEDS: DEXTROSE 5%-0.45% SODIUM CHL 1,000 ML IV SCH ×2 (10:18→16:12)
[2017-11-07 11:52] VITALS: BP 104/54
[2017-11-07 16:49] VITALS: BP 106/58
[2017-11-07 19:29] VITALS: BP 109/63
[2017-11-07 23:38] VITALS: BP 102/74
[2017-11-08 04:30] VITALS: BP 111/69
[2017-11-08] MEDS: PANTOPRAZOLE SODIUM 40 MG/VIAL IVP SCH (08:17)
[2017-11-08] MEDS: DOCUSATE SODIUM 100 MG CAPSULE PO SCH ×2 (08:17→19:35)
[2017-11-08] MEDS: CYPROHEPTADINE HCL 4 MG TABLET PO SCH ×4 (08:17→19:35)
[2017-11-08] MEDS: MULTIVITAMINS WITH MINERALS, THERAPEUTIC TABLET PO SCH (08:17)
[2017-11-08] MEDS: CHOLECALCIFEROL (VIT D3) 1,000 UNITS TABLET PO SCH (08:17)
[2017-11-08] MEDS: HALOPERIDOL 5 MG TABLET PO SCH ×2 (08:18→19:35)
[2017-11-08] MEDS: PARoxetine HCL 20 MG TABLET PO SCH (08:20)
[2017-11-08] MEDS: DEXTROSE 5%-0.45% SODIUM CHL 1,000 ML IV SCH (08:21)
[2017-11-08 08:26] VITALS: BP 97/50
[2017-11-08 11:40] VITALS: BP 107/71
[2017-11-08 16:00] VITALS: BP 102/65
[2017-11-08 20:05] VITALS: BP 106/61
[2017-11-09] VITALS (7 sets, daily range): BP systolic 94–110; BP diastolic 58–66
[2017-11-09 06:36] LABS: BASOPHILS % (AUTO) 0.4 % (0.0-2.0); EOSINOPHILS % (AUTO) 1.7 % (1.0-6.0); HEMATOCRIT 36.1 % (41-53); HEMOGLOBIN 12.9 g/dL (13.5-17.5); LYMPHOCYTES # (AUTO) 2.7 K/uL (1.0-4.8); LYMPHOCYTES % (AUTO) 49.7 % (22.0-44.0); MEAN CORPUSCULAR HEMOGLOBIN 30.5 pg (26.0-34.0); MEAN CORPUSCULAR HGB CONC 35.7 G/dL (31.0-37.0); MEAN CORPUSCULAR VOLUME 85 fL (80-100); MONOCYTES # (AUTO) 0.4 K/uL (0.1-1.0); MONOCYTES % (AUTO) 7.3 % (2.0-9.0); NEUTROPHILS # (AUTO) 2.2 K/uL (1.8-7.7); NEUTROPHILS % (AUTO) 40.9 % (40.0-70.0); PLATELET COUNT (AUTO) 111 K/uL (150-450); RED BLOOD CELL COUNT(AUTO) 4.24 MIL/uL (4.50-5.90); RED CELL DISTRIBUTION WIDTH 15.2 % (11.5-14.5)
[2017-11-09 06:45] LABS: ANION GAP 5 mmol/L (8-16); CALCIUM, TOTAL 8.8 mg/dL (8.8-10.5); CARBON DIOXIDE 32 mmol/L (22-29); CHLORIDE 104 mmol/L (98-107); CREATININE 0.73 mg/dL (0.60-1.30); GLOMERULAR FILTR. RATE CALC > 60 mL/min (>60); GLUCOSE,RANDOM 94 mg/dL (70-110); POTASSIUM 3.5 mmol/L (3.5-5.1); SODIUM SERUM 141 mmol/L (136-145); UREA NITROGEN, BLOOD 8 mg/dL (7-18)
[2017-11-09] MEDS: MULTIVITAMINS WITH MINERALS, THERAPEUTIC TABLET PO SCH (08:30)
[2017-11-09] MEDS: CYPROHEPTADINE HCL 4 MG TABLET PO SCH ×4 (09:00→20:27)
[2017-11-09] MEDS: CHOLECALCIFEROL (VIT D3) 1,000 UNITS TABLET PO SCH (09:00)
[2017-11-09] MEDS: DOCUSATE SODIUM 100 MG CAPSULE PO SCH ×2 (09:00→20:27)
[2017-11-09] MEDS: PARoxetine HCL 20 MG TABLET PO SCH (09:00)
[2017-11-09] MEDS: PANTOPRAZOLE SODIUM 40 MG/VIAL IVP SCH (09:00)
[2017-11-09] MEDS: HALOPERIDOL 5 MG TABLET PO SCH ×2 (11:00→20:27)
[2017-11-10 05:28] VITALS: BP 105/62
[2017-11-10 07:30] VITALS: BP 98/58
[2017-11-10] MEDS: DOCUSATE SODIUM 100 MG CAPSULE PO SCH ×2 (07:59→21:33)
[2017-11-10] MEDS: PANTOPRAZOLE SODIUM 40 MG/VIAL IVP SCH (07:59)
[2017-11-10] MEDS: MULTIVITAMINS WITH MINERALS, THERAPEUTIC TABLET PO SCH (07:59)
[2017-11-10] MEDS: PARoxetine HCL 20 MG TABLET PO SCH (07:59)
[2017-11-10] MEDS: HALOPERIDOL 5 MG TABLET PO SCH ×2 (07:59→21:33)
[2017-11-10] MEDS: CYPROHEPTADINE HCL 4 MG TABLET PO SCH ×4 (07:59→21:33)
[2017-11-10] MEDS: CHOLECALCIFEROL (VIT D3) 1,000 UNITS TABLET PO SCH (07:59)
[2017-11-10 11:20] VITALS: BP 102/69
[2017-11-10 15:06] VITALS: BP 108/65
[2017-11-10 20:26] VITALS: BP 108/69
[2017-11-10] MEDS: PALIPERIDONE 6 MG ER TABLET PO SCH (21:00)
[2017-11-10] MEDS: MIRTAZAPINE 15 MG TABLET PO SCH (21:32)
[2017-11-10 23:23] VITALS: BP 108/72
[2017-11-11] VITALS (7 sets, daily range): BP systolic 90–111; BP diastolic 50–67
[2017-11-11] MEDS: MULTIVITAMINS WITH MINERALS, THERAPEUTIC TABLET PO SCH (10:32)
[2017-11-11] MEDS: PANTOPRAZOLE SODIUM 40 MG/VIAL IVP SCH (10:32)
[2017-11-11] MEDS: HALOPERIDOL 5 MG TABLET PO SCH ×2 (10:33→21:08)
[2017-11-11] MEDS: PARoxetine HCL 20 MG TABLET PO SCH (10:33)
[2017-11-11] MEDS: CYPROHEPTADINE HCL 4 MG TABLET PO SCH ×4 (10:33→21:08)
[2017-11-11] MEDS: DOCUSATE SODIUM 100 MG CAPSULE PO SCH ×2 (10:34→21:08)
[2017-11-11] MEDS: CHOLECALCIFEROL (VIT D3) 1,000 UNITS TABLET PO SCH (10:34)
[2017-11-11] MEDS: PALIPERIDONE 6 MG ER TABLET PO SCH (21:00)
[2017-11-11] MEDS: MIRTAZAPINE 15 MG TABLET PO SCH (21:08)
[2017-11-12 04:32] VITALS: BP 102/64
[2017-11-12 08:27] VITALS: BP 108/64
[2017-11-12] MEDS: CYPROHEPTADINE HCL 4 MG TABLET PO SCH ×4 (10:06→21:35)
[2017-11-12] MEDS: PANTOPRAZOLE SODIUM 40 MG/VIAL IVP SCH (10:06)
[2017-11-12] MEDS: HALOPERIDOL 5 MG TABLET PO SCH ×2 (10:06→21:35)
[2017-11-12] MEDS: MULTIVITAMINS WITH MINERALS, THERAPEUTIC TABLET PO SCH (10:07)
[2017-11-12] MEDS: CHOLECALCIFEROL (VIT D3) 1,000 UNITS TABLET PO SCH (10:07)
[2017-11-12] MEDS: PARoxetine HCL 20 MG TABLET PO SCH (10:07)
[2017-11-12] MEDS: DOCUSATE SODIUM 100 MG CAPSULE PO SCH ×2 (10:18→21:35)
[2017-11-12 11:00] VITALS: BP 108/74
[2017-11-12 15:00] VITALS: BP 112/70
[2017-11-12] MEDS: MAGNESIUM HYDROXIDE SUSPENSION 30 ML UDCUP PO PRN (18:34)
[2017-11-12 19:52] VITALS: BP 105/64
[2017-11-12] MEDS: PALIPERIDONE 6 MG ER TABLET PO SCH (21:00)
[2017-11-12] MEDS: MIRTAZAPINE 15 MG TABLET PO SCH (21:35)
[2017-11-12] MEDS: RisperiDONE CONC 3 MG/3 ML SOLUTION ORAL.SYG PO SCH (21:36)
[2017-11-12 23:20] VITALS: BP 109/73
[2017-11-13 04:39] VITALS: BP 100/61
[2017-11-13 08:25] VITALS: BP 103/60
[2017-11-13] MEDS ORDERED: PALIPERIDONE PALMITATE 234 MG/1.5 ML SYRINGE IM SCH (09:00)
[2017-11-13] MEDS: CHOLECALCIFEROL (VIT D3) 1,000 UNITS TABLET PO SCH (10:15)
[2017-11-13] MEDS: PANTOPRAZOLE SODIUM 40 MG/VIAL IVP SCH (10:15)
[2017-11-13] MEDS: DOCUSATE SODIUM 100 MG CAPSULE PO SCH ×2 (10:15→20:49)
[2017-11-13] MEDS: MULTIVITAMINS WITH MINERALS, THERAPEUTIC TABLET PO SCH (10:15)
[2017-11-13] MEDS: PARoxetine HCL 20 MG TABLET PO SCH (10:16)
[2017-11-13] MEDS: CYPROHEPTADINE HCL 4 MG TABLET PO SCH ×4 (10:16→20:50)
[2017-11-13] MEDS: HALOPERIDOL 5 MG TABLET PO SCH ×2 (10:16→20:50)
[2017-11-13] MEDS: RisperiDONE CONC 3 MG/3 ML SOLUTION ORAL.SYG PO SCH (10:16)
[2017-11-13 11:47] VITALS: BP 107/66
[2017-11-13 15:43] VITALS: BP 110/69
[2017-11-13 19:40] VITALS: BP 96/60
[2017-11-13] MEDS: MIRTAZAPINE 15 MG TABLET PO SCH (20:49)
[2017-11-13 23:44] VITALS: BP 100/57
[2017-11-14 05:16] VITALS: BP 96/63
[2017-11-14 07:10] VITALS: BP 116/71
[2017-11-14] MEDS: DOCUSATE SODIUM 100 MG CAPSULE PO SCH ×2 (08:44→20:31)
[2017-11-14] MEDS: HALOPERIDOL 5 MG TABLET PO SCH ×2 (08:44→20:31)
[2017-11-14] MEDS: PANTOPRAZOLE SODIUM 40 MG/VIAL IVP SCH (08:44)
[2017-11-14] MEDS: CYPROHEPTADINE HCL 4 MG TABLET PO SCH ×4 (08:45→20:31)
[2017-11-14] MEDS: PARoxetine HCL 20 MG TABLET PO SCH (08:45)
[2017-11-14] MEDS: CHOLECALCIFEROL (VIT D3) 1,000 UNITS TABLET PO SCH (08:45)
[2017-11-14] MEDS: MULTIVITAMINS WITH MINERALS, THERAPEUTIC TABLET PO SCH (08:52)
[2017-11-14 11:07] VITALS: BP 87/51
[2017-11-14 18:37] VITALS: BP 88/51
[2017-11-14 20:00] VITALS: BP 92/50
[2017-11-14] MEDS: MIRTAZAPINE 15 MG TABLET PO SCH (20:32)
[2017-11-14 23:30] VITALS: BP 91/51
[2017-11-15 04:00] VITALS: BP 109/67
[2017-11-15] MEDS: PANTOPRAZOLE SODIUM 40 MG/VIAL IVP SCH (08:04)
[2017-11-15] MEDS: DOCUSATE SODIUM 100 MG CAPSULE PO SCH ×2 (08:05→19:37)
[2017-11-15] MEDS: CHOLECALCIFEROL (VIT D3) 1,000 UNITS TABLET PO SCH (08:05)
[2017-11-15] MEDS: MULTIVITAMINS WITH MINERALS, THERAPEUTIC TABLET PO SCH (08:05)
[2017-11-15] MEDS: HALOPERIDOL 5 MG TABLET PO SCH ×2 (08:06→19:37)
[2017-11-15] MEDS: CYPROHEPTADINE HCL 4 MG TABLET PO SCH ×4 (08:06→19:37)
[2017-11-15] MEDS: PARoxetine HCL 20 MG TABLET PO SCH (08:06)
[2017-11-15 08:09] VITALS: BP 107/69
[2017-11-15 12:42] VITALS: BP 101/67
[2017-11-15 16:41] VITALS: BP 91/57
[2017-11-15] MEDS: MIRTAZAPINE 15 MG TABLET PO SCH (19:37)
[2017-11-15 19:44] VITALS: BP 98/63
[2017-11-16 00:42] VITALS: BP 95/54
[2017-11-16 06:10] VITALS: BP 100/60
[2017-11-16] MEDS: HALOPERIDOL 5 MG TABLET PO SCH ×2 (08:33→21:18)
[2017-11-16] MEDS: CYPROHEPTADINE HCL 4 MG TABLET PO SCH ×4 (08:33→21:19)
[2017-11-16] MEDS: PANTOPRAZOLE SODIUM 40 MG/VIAL IVP SCH (08:33)
[2017-11-16] MEDS: MULTIVITAMINS WITH MINERALS, THERAPEUTIC TABLET PO SCH (08:34)
[2017-11-16] MEDS: DOCUSATE SODIUM 100 MG CAPSULE PO SCH ×2 (08:34→21:18)
[2017-11-16] MEDS: PARoxetine HCL 20 MG TABLET PO SCH (08:34)
[2017-11-16] MEDS: CHOLECALCIFEROL (VIT D3) 1,000 UNITS TABLET PO SCH (08:37)
[2017-11-16 11:43] VITALS: BP 106/65
[2017-11-16 15:11] VITALS: BP 109/66
[2017-11-16 21:00] VITALS: BP 100/59
[2017-11-16] MEDS: MIRTAZAPINE 15 MG TABLET PO SCH (21:19)
[2017-11-17 02:00] VITALS: BP 90/52
[2017-11-17 05:30] VITALS: BP 97/66
[2017-11-17] MEDS: MAGNESIUM HYDROXIDE SUSPENSION 30 ML UDCUP PO PRN (06:32)
[2017-11-17 07:40] VITALS: BP 96/62
[2017-11-17] MEDS: CHOLECALCIFEROL (VIT D3) 1,000 UNITS TABLET PO SCH (09:16)
[2017-11-17] MEDS: PANTOPRAZOLE SODIUM 40 MG/VIAL IVP SCH (09:16)
[2017-11-17] MEDS: CYPROHEPTADINE HCL 4 MG TABLET PO SCH ×3 (09:17→15:34)
[2017-11-17] MEDS: PARoxetine HCL 20 MG TABLET PO SCH (09:18)
[2017-11-17] MEDS: HALOPERIDOL 5 MG TABLET PO SCH (09:18)
[2017-11-17] MEDS: DOCUSATE SODIUM 100 MG CAPSULE PO SCH (09:18)
[2017-11-17] MEDS: MULTIVITAMINS WITH MINERALS, THERAPEUTIC TABLET PO SCH (09:19)
[2017-11-17 11:15] VITALS: BP 98/59
[2017-11-17 15:09] VITALS: BP 97/57
== END 2017-11-17 16:58 | DRG 421 ==
LOC: 6N 17:20
PROVIDERS: ADMIT Internal Medicine; ATTEND Internal Medicine
DX: R62.7 Adult failure to thrive (principal); F33.3 Major depressive disorder, recurrent, severe with psychotic symptoms; E46 Unspecified protein-calorie malnutrition; D69.6 Thrombocytopenia, unspecified; T73.0XXA Starvation, initial encounter; D64.9 Anemia, unspecified; E55.9 Vitamin D deficiency, unspecified; E87.6 Hypokalemia; F41.9 Anxiety disorder, unspecified; F50.89 Other specified eating disorder; F94.0 Selective mutism; G47.00 Insomnia, unspecified; K59.00 Constipation, unspecified; Z79.899 Other long term (current) drug therapy; Z91.14 Patient's other noncompliance with medication regimen; Z91.19 Patient's noncompliance with other medical treatment and regimen; Z68.23 Body mass index [BMI] 23.0-23.9, adult
CPT/HCPCS: 74018; 82306; 83036; 83735; 84100; 84132; 84443; 87081; C9113; J3480; J7040

== ENCOUNTER 2017-11-17 17:00 | Inpatient (IN) | payer MEDICAID ==
[~2017-11-17] VITALS: Ht 167.6 cm; Wt 69.4 kg
[2017-11-17] MEDS ORDERED: ZOLPIDEM TARTRATE 10 MG TABLET PO PRN (18:00)
[2017-11-17] MEDS ORDERED: HALOPERIDOL 5 MG TABLET PO PRN (18:00)
[2017-11-17] MEDS ORDERED: LORazepam 2 MG TABLET PO PRN (18:00)
[2017-11-17 19:27] VITALS: BP 104/70
[2017-11-17] MEDS: HALOPERIDOL 5 MG TABLET PO SCH (20:56)
[2017-11-17] MEDS: MIRTAZAPINE 15 MG TABLET PO SCH (20:56)
[2017-11-18 06:58] LABS: BASOPHILS % (AUTO) 0.4 % (0.0-2.0); EOSINOPHILS % (AUTO) 1.9 % (1.0-6.0); HEMATOCRIT 32.5 % (41-53); HEMOGLOBIN 11.4 g/dL (13.5-17.5); LYMPHOCYTES # (AUTO) 2.8 K/uL (1.0-4.8); LYMPHOCYTES % (AUTO) 48.6 % (22.0-44.0); MEAN CORPUSCULAR HEMOGLOBIN 30.9 pg (26.0-34.0); MEAN CORPUSCULAR HGB CONC 35.2 G/dL (31.0-37.0); MEAN CORPUSCULAR VOLUME 88 fL (80-100); MONOCYTES # (AUTO) 0.3 K/uL (0.1-1.0); NEUTROPHILS # (AUTO) 2.5 K/uL (1.8-7.7); NEUTROPHILS % (AUTO) 43.1 % (40.0-70.0); PLATELET COUNT (AUTO) 136 K/uL (150-450); RED BLOOD CELL COUNT(AUTO) 3.71 MIL/uL (4.50-5.90); RED CELL DISTRIBUTION WIDTH 15.2 % (11.5-14.5)
[2017-11-18 07:10] LABS: ALANINE AMINOTRANSFERASE 32 U/L (12-78); ALBUMIN 2.9 g/dL (3.4-5.0); ALKALINE PHOSPHATASE 79 U/L (46-116); ANION GAP 4 mmol/L (8-16); ASPARTATE AMINOTRANSFERASE 15 U/L (15-37); BILIRUBIN,TOTAL 0.2 mg/dL (0.1-1.0); CALCIUM, TOTAL 8.5 mg/dL (8.8-10.5); CARBON DIOXIDE 31 mmol/L (22-29); CHLORIDE 107 mmol/L (98-107); GLOMERULAR FILTR. RATE CALC > 60 mL/min (>60); GLUCOSE,RANDOM 90 mg/dL (70-110); POTASSIUM 3.7 mmol/L (3.5-5.1); SODIUM SERUM 142 mmol/L (136-145); TOTAL PROTEIN, SERUM 6.3 g/dL (6.4-8.2); UREA NITROGEN, BLOOD 17 mg/dL (7-18)
[2017-11-18] MEDS ORDERED: MAG HYDROX/AL HYDROX/SIMETH ES 30 ML SUSPENSION UDCUP PO PRN (07:30)
[2017-11-18] MEDS ORDERED: ALBUTEROL SULFATE HFA 90 MCG/PUFF 8 GM INHALER IH PRN (07:30)
[2017-11-18] MEDS ORDERED: ACETAMINOPHEN 325 MG TABLET PO PRN (07:30)
[2017-11-18] MEDS ORDERED: ONDANSETRON HCL 4 MG TABLET PO PRN (07:30)
[2017-11-18] MEDS ORDERED: BACITRACIN 28.4 GM OINTMENT TP PRN (07:30)
[2017-11-18] MEDS ORDERED: MAGNESIUM HYDROXIDE SUSPENSION 30 ML UDCUP PO PRN (07:30)
[2017-11-18] MEDS ORDERED: LOPERAMIDE HCL 2 MG CAPSULE PO PRN (07:30)
[2017-11-18] MEDS ORDERED: CloNIDine HCL 0.1 MG TABLET PO PRN (07:30)
[2017-11-18] MEDS ORDERED: IBUPROFEN 600 MG TABLET PO PRN (07:30)
[2017-11-18] MEDS ORDERED: PETROLATUM,WHITE 71 GM JELLY TP PRN (07:30)
[2017-11-18] MEDS ORDERED: BENZOCAINE/MENTHOL LOZENGE MM PRN (07:30)
[2017-11-18 08:05] VITALS: BP 95/61
[2017-11-18] MEDS ORDERED: DOCUSATE SODIUM 100 MG CAPSULE PO SCH (09:00)
[2017-11-18] MEDS ORDERED: PANTOPRAZOLE SODIUM 40 MG DR TABLET PO SCH (09:00)
[2017-11-18] MEDS: CHOLECALCIFEROL (VIT D3) 1,000 UNITS TABLET PO SCH (09:30)
[2017-11-18] MEDS: DOCUSATE SODIUM 100 MG CAPSULE PO SCH (09:30)
[2017-11-18] MEDS: OMEPRAZOLE 20 MG CAPSULE PO SCH (09:30)
[2017-11-18] MEDS: MULTIVITAMINS WITH MINERALS, THERAPEUTIC TABLET PO SCH (09:30)
[2017-11-18] MEDS: PARoxetine HCL 20 MG TABLET PO SCH (09:30)
[2017-11-18] MEDS: HALOPERIDOL 5 MG TABLET PO SCH ×2 (09:31→17:38)
[2017-11-18 17:04] VITALS: BP 93/58
[2017-11-18] MEDS: MIRTAZAPINE 15 MG TABLET PO SCH (20:15)
[2017-11-19] MEDS: CHOLECALCIFEROL (VIT D3) 1,000 UNITS TABLET PO SCH (12:56)
[2017-11-19] MEDS: OMEPRAZOLE 20 MG CAPSULE PO SCH (12:56)
[2017-11-19] MEDS: DOCUSATE SODIUM 100 MG CAPSULE PO SCH (12:57)
[2017-11-19] MEDS: MULTIVITAMINS WITH MINERALS, THERAPEUTIC TABLET PO SCH (12:57)
[2017-11-19] MEDS: PARoxetine HCL 20 MG TABLET PO SCH (12:57)
[2017-11-19] MEDS: HALOPERIDOL 5 MG TABLET PO SCH ×2 (12:57→17:38)
[2017-11-19] MEDS: MIRTAZAPINE 15 MG TABLET PO SCH (20:45)
[2017-11-19 20:55] VITALS: BP 100/57
[2017-11-20] MEDS: CHOLECALCIFEROL (VIT D3) 1,000 UNITS TABLET PO SCH (09:32)
[2017-11-20] MEDS: DOCUSATE SODIUM 100 MG CAPSULE PO SCH (09:32)
[2017-11-20] MEDS: HALOPERIDOL 5 MG TABLET PO SCH ×2 (09:32→17:45)
[2017-11-20] MEDS: MULTIVITAMINS WITH MINERALS, THERAPEUTIC TABLET PO SCH (09:32)
[2017-11-20] MEDS: OMEPRAZOLE 20 MG CAPSULE PO SCH (09:32)
[2017-11-20] MEDS: PARoxetine HCL 20 MG TABLET PO SCH (09:32)
[2017-11-20 10:00] VITALS: BP 98/68
[2017-11-20 20:59] VITALS: BP 112/74
[2017-11-20] MEDS: MIRTAZAPINE 15 MG TABLET PO SCH (21:03)
[2017-11-21] MEDS: MULTIVITAMINS WITH MINERALS, THERAPEUTIC TABLET PO SCH ×2 (08:00→10:01)
[2017-11-21] MEDS: OMEPRAZOLE 20 MG CAPSULE PO SCH (09:58)
[2017-11-21] MEDS: CHOLECALCIFEROL (VIT D3) 1,000 UNITS TABLET PO SCH (09:58)
[2017-11-21] MEDS: PARoxetine HCL 20 MG TABLET PO SCH (09:58)
[2017-11-21] MEDS: DOCUSATE SODIUM 100 MG CAPSULE PO SCH (09:58)
[2017-11-21] MEDS: HALOPERIDOL 5 MG TABLET PO SCH ×2 (10:00→16:44)
[2017-11-21] MEDS: MIRTAZAPINE 15 MG TABLET PO SCH (20:52)
[2017-11-21 21:11] VITALS: BP 107/77
[2017-11-22] MEDS: PARoxetine HCL 20 MG TABLET PO SCH (09:42)
[2017-11-22] MEDS: DOCUSATE SODIUM 100 MG CAPSULE PO SCH (09:42)
[2017-11-22] MEDS: OMEPRAZOLE 20 MG CAPSULE PO SCH (09:42)
[2017-11-22] MEDS: HALOPERIDOL 5 MG TABLET PO SCH ×2 (09:42→16:55)
[2017-11-22] MEDS: MULTIVITAMINS WITH MINERALS, THERAPEUTIC TABLET PO SCH (09:42)
[2017-11-22] MEDS: CHOLECALCIFEROL (VIT D3) 1,000 UNITS TABLET PO SCH (09:42)
[2017-11-22 11:00] VITALS: BP 99/59
[2017-11-22 19:32] VITALS: BP 101/60
[2017-11-22] MEDS: MIRTAZAPINE 15 MG TABLET PO SCH (21:46)
[2017-11-23 09:00] VITALS: BP 116/68
[2017-11-23] MEDS: CHOLECALCIFEROL (VIT D3) 1,000 UNITS TABLET PO SCH (10:03)
[2017-11-23] MEDS: PARoxetine HCL 20 MG TABLET PO SCH (10:03)
[2017-11-23] MEDS: DOCUSATE SODIUM 100 MG CAPSULE PO SCH (10:04)
[2017-11-23] MEDS: MULTIVITAMINS WITH MINERALS, THERAPEUTIC TABLET PO SCH (10:04)
[2017-11-23] MEDS: HALOPERIDOL 5 MG TABLET PO SCH ×2 (10:04→16:35)
[2017-11-23] MEDS: OMEPRAZOLE 20 MG CAPSULE PO SCH (10:04)
[2017-11-23] MEDS: MIRTAZAPINE 15 MG TABLET PO SCH (21:23)
[2017-11-23 21:56] VITALS: BP 104/63
[2017-11-24 09:00] VITALS: BP 94/59
[2017-11-24] MEDS: CHOLECALCIFEROL (VIT D3) 1,000 UNITS TABLET PO SCH (09:32)
[2017-11-24] MEDS: DOCUSATE SODIUM 100 MG CAPSULE PO SCH (09:32)
[2017-11-24] MEDS: MULTIVITAMINS WITH MINERALS, THERAPEUTIC TABLET PO SCH (09:32)
[2017-11-24] MEDS: PARoxetine HCL 20 MG TABLET PO SCH (09:32)
[2017-11-24] MEDS: OMEPRAZOLE 20 MG CAPSULE PO SCH (09:33)
[2017-11-24] MEDS: HALOPERIDOL 5 MG TABLET PO SCH ×2 (09:33→16:29)
[2017-11-24 18:59] VITALS: BP 97/52
[2017-11-24] MEDS: MIRTAZAPINE 15 MG TABLET PO SCH (20:18)
[2017-11-25] MEDS: OMEPRAZOLE 20 MG CAPSULE PO SCH (09:35)
[2017-11-25] MEDS: HALOPERIDOL 5 MG TABLET PO SCH ×2 (09:35→16:14)
[2017-11-25] MEDS: MULTIVITAMINS WITH MINERALS, THERAPEUTIC TABLET PO SCH (09:35)
[2017-11-25] MEDS: PARoxetine HCL 20 MG TABLET PO SCH (09:36)
[2017-11-25] MEDS: DOCUSATE SODIUM 100 MG CAPSULE PO SCH (09:36)
[2017-11-25] MEDS: CHOLECALCIFEROL (VIT D3) 1,000 UNITS TABLET PO SCH (09:36)
[2017-11-25 10:37] VITALS: BP 101/52
[2017-11-25 19:11] VITALS: BP 115/76
[2017-11-25] MEDS: MIRTAZAPINE 15 MG TABLET PO SCH (20:21)
[2017-11-26 09:36] VITALS: BP 108/65
[2017-11-26] MEDS: DOCUSATE SODIUM 100 MG CAPSULE PO SCH (09:41)
[2017-11-26] MEDS: MULTIVITAMINS WITH MINERALS, THERAPEUTIC TABLET PO SCH (09:41)
[2017-11-26] MEDS: CHOLECALCIFEROL (VIT D3) 1,000 UNITS TABLET PO SCH (09:41)
[2017-11-26] MEDS: OMEPRAZOLE 20 MG CAPSULE PO SCH (09:41)
[2017-11-26] MEDS: HALOPERIDOL 5 MG TABLET PO SCH (09:41)
[2017-11-26] MEDS: PARoxetine HCL 20 MG TABLET PO SCH (09:42)
[2017-11-26] MEDS ORDERED: VITAD1000 PO (09:53)
[2017-11-26] MEDS ORDERED: DSS100 PO (09:54)
[2017-11-26] MEDS ORDERED: MIRT15 PO (09:58)
[2017-11-26] MEDS ORDERED: HALO5 PO (09:58)
[2017-11-26] MEDS ORDERED: MULT-685 PO (10:00)
[2017-11-26] MEDS ORDERED: OMEP20 PO (10:00)
== END 2017-11-26 12:48 | disposition home or self-care (01) | DRG 750 ==
LOC: 3EI 17:00
PROVIDERS: ADMIT Psychiatry & Neurology Psychiatry; ATTEND Psychiatry & Neurology Psychiatry
DX: F20.0 Paranoid schizophrenia (principal); E46 Unspecified protein-calorie malnutrition; D69.6 Thrombocytopenia, unspecified; E55.9 Vitamin D deficiency, unspecified; F32.9 Major depressive disorder, single episode, unspecified; G47.00 Insomnia, unspecified; K59.00 Constipation, unspecified; R62.7 Adult failure to thrive; T73.0XXA Starvation, initial encounter; Z68.24 Body mass index [BMI] 24.0-24.9, adult; Z79.899 Other long term (current) drug therapy
CPT/HCPCS: 87081

== ENCOUNTER 2018-04-20 18:10 | Inpatient (IN) | payer MEDICAID, OTHER ==
[~2018-04-20] VITALS: Ht 167.1 cm; Wt 90.8 kg
[~2018-04-20 18:10] MED LIST changes: -ARIP5TAB8 PO; +DSS100 PO; +HALO10 PO; +MIRT15 PO; +MULT-685 PO; +OMEP20 PO; +VITAD1000 PO
[2018-04-20 19:23] LABS: BASOPHILS % (AUTO) 0.5 % (0.0-2.0); EOSINOPHILS % (AUTO) 0.9 % (1.0-6.0); HEMATOCRIT 46.1 % (41-53); HEMOGLOBIN 16.3 g/dL (13.5-17.5); LYMPHOCYTES # (AUTO) 3.2 K/uL (1.0-4.8); LYMPHOCYTES % (AUTO) 37.7 % (22.0-44.0); MEAN CORPUSCULAR HEMOGLOBIN 30.3 pg (26.0-34.0); MEAN CORPUSCULAR HGB CONC 35.3 G/dL (31.0-37.0); MEAN CORPUSCULAR VOLUME 86 fL (80-100); MONOCYTES # (AUTO) 0.4 K/uL (0.1-1.0); MONOCYTES % (AUTO) 5.2 % (2.0-9.0); NEUTROPHILS # (AUTO) 4.7 K/uL (1.8-7.7); NEUTROPHILS % (AUTO) 55.7 % (40.0-70.0); PLATELET COUNT (AUTO) 216 K/uL (150-450); RED BLOOD CELL COUNT(AUTO) 5.38 MIL/uL (4.50-5.90); RED CELL DISTRIBUTION WIDTH 13.9 % (11.5-14.5)
[2018-04-20 19:28] LABS: ANION GAP 17 mmol/L (8-16); CALCIUM, TOTAL 9.9 mg/dL (8.8-10.5); CARBON DIOXIDE 20 mmol/L (22-29); CHLORIDE 101 mmol/L (98-107); GLOMERULAR FILTR. RATE CALC > 60 mL/min (>60); GLUCOSE,RANDOM 77 mg/dL (70-110); POTASSIUM 3.7 mmol/L (3.5-5.1); SODIUM SERUM 138 mmol/L (136-145); UREA NITROGEN, BLOOD 17 mg/dL (7-18)
[2018-04-20 19:32] LABS: ALANINE AMINOTRANSFERASE 20 U/L (12-78); ALBUMIN 4.1 g/dL (3.4-5.0); ALKALINE PHOSPHATASE 94 U/L (46-116); ASPARTATE AMINOTRANSFERASE 17 U/L (15-37); TOTAL PROTEIN, SERUM 9.2 g/dL (6.4-8.2)
[2018-04-20] MEDS ORDERED: ZOLPIDEM TARTRATE 10 MG TABLET PO PRN (20:45)
[2018-04-20] MEDS ORDERED: HALOPERIDOL 5 MG TABLET PO PRN (20:45)
[2018-04-20] MEDS ORDERED: LORazepam 2 MG TABLET PO PRN (20:45)
[2018-04-21 02:52] LABS: CHOL/HDL RATIO 5.9 (4.2-7.3); CHOLESTEROL 196 mg/dL (131-200); HDL CHOLESTEROL 33 mg/dL (40-60); LDL CHOL (CALC.) 140 mg/dL (0-130); TRIGLYCERIDES 114 mg/dL (15-150)
[2018-04-21] MEDS ORDERED: ALBUTEROL SULFATE HFA 90 MCG/PUFF 8 GM INHALER IH PRN (19:00)
[2018-04-21] MEDS ORDERED: LOPERAMIDE HCL 2 MG CAPSULE PO PRN (19:00)
[2018-04-21] MEDS ORDERED: PETROLATUM,WHITE 71 GM JELLY TP PRN (19:00)
[2018-04-21] MEDS ORDERED: MAGNESIUM HYDROXIDE SUSPENSION 30 ML UDCUP PO PRN (19:00)
[2018-04-21] MEDS ORDERED: BACITRACIN 28.4 GM OINTMENT TP PRN (19:00)
[2018-04-21] MEDS ORDERED: IBUPROFEN 600 MG TABLET PO PRN (19:00)
[2018-04-21] MEDS ORDERED: ONDANSETRON HCL 4 MG TABLET PO PRN (19:00)
[2018-04-21] MEDS ORDERED: MAG HYDROX/AL HYDROX/SIMETH ES 30 ML SUSPENSION UDCUP PO PRN (19:00)
[2018-04-21] MEDS ORDERED: CloNIDine HCL 0.1 MG TABLET PO PRN (19:00)
[2018-04-21] MEDS ORDERED: ACETAMINOPHEN 325 MG TABLET PO PRN (19:00)
[2018-04-21] MEDS ORDERED: BENZOCAINE/MENTHOL LOZENGE MM PRN (19:00)
[2018-04-21 19:04] VITALS: BP 115/91
[2018-04-21] MEDS: HALOPERIDOL 10 MG TABLET PO SCH (21:59)
[2018-04-21] MEDS: MIRTAZAPINE 15 MG TABLET PO SCH (22:00)
[2018-04-22] MEDS: OMEPRAZOLE 20 MG CAPSULE PO SCH (06:39)
[2018-04-22] MEDS: MULTIVITAMINS WITH MINERALS, THERAPEUTIC TABLET PO SCH ×2 (08:00→08:44)
[2018-04-22] MEDS: PARoxetine HCL 20 MG TABLET PO SCH ×2 (08:44→09:00)
[2018-04-22] MEDS: DOCUSATE SODIUM 100 MG CAPSULE PO SCH ×2 (08:45→09:00)
[2018-04-22] MEDS: CHOLECALCIFEROL (VIT D3) 1,000 UNITS TABLET PO SCH ×2 (08:45→09:00)
[2018-04-22] MEDS ORDERED: MULTIVITAMINS WITH MINERALS, THERAPEUTIC TABLET PO SCH (09:00)
[2018-04-22] MEDS ORDERED: DOCUSATE SODIUM 100 MG CAPSULE PO SCH (09:00)
[2018-04-22] MEDS ORDERED: CHOLECALCIFEROL (VIT D3) 1,000 UNITS TABLET PO SCH (09:00)
[2018-04-22] MEDS ORDERED: OMEPRAZOLE 20 MG CAPSULE PO SCH (09:00)
[2018-04-22 16:29] VITALS: BP 102/63
[2018-04-22] MEDS: MIRTAZAPINE 15 MG TABLET PO SCH (20:57)
[2018-04-22] MEDS: HALOPERIDOL 10 MG TABLET PO SCH (20:57)
[2018-04-23] MEDS: OMEPRAZOLE 20 MG CAPSULE PO SCH (06:48)
[2018-04-23] MEDS: MULTIVITAMINS WITH MINERALS, THERAPEUTIC TABLET PO SCH ×2 (08:00→09:30)
[2018-04-23] MEDS: CHOLECALCIFEROL (VIT D3) 1,000 UNITS TABLET PO SCH ×2 (09:00→09:30)
[2018-04-23] MEDS: DOCUSATE SODIUM 100 MG CAPSULE PO SCH ×2 (09:00→09:30)
[2018-04-23] MEDS: PARoxetine HCL 20 MG TABLET PO SCH ×2 (09:00→09:30)
[2018-04-23 09:57] VITALS: BP 106/66
[2018-04-23 18:25] VITALS: BP 127/77
[2018-04-23] MEDS: HALOPERIDOL 10 MG TABLET PO SCH (21:00)
[2018-04-23] MEDS: MIRTAZAPINE 15 MG TABLET PO SCH (21:00)
[2018-04-24] MEDS: OMEPRAZOLE 20 MG CAPSULE PO SCH (06:51)
[2018-04-24 08:30] VITALS: BP 101/69
[2018-04-24] MEDS: CHOLECALCIFEROL (VIT D3) 1,000 UNITS TABLET PO SCH (09:00)
[2018-04-24 16:26] VITALS: BP 108/67
[2018-04-24] MEDS: HALOPERIDOL 10 MG TABLET PO SCH (21:00)
[2018-04-24] MEDS: MIRTAZAPINE 15 MG TABLET PO SCH (21:00)
[2018-04-25] MEDS: OMEPRAZOLE 20 MG CAPSULE PO SCH (07:00)
[2018-04-25] MEDS: MULTIVITAMINS WITH MINERALS, THERAPEUTIC TABLET PO SCH (08:00)
[2018-04-25] MEDS: DOCUSATE SODIUM 100 MG CAPSULE PO SCH (09:00)
[2018-04-25] MEDS: PARoxetine HCL 20 MG TABLET PO SCH (09:00)
[2018-04-25] MEDS: CHOLECALCIFEROL (VIT D3) 1,000 UNITS TABLET PO SCH (09:00)
[2018-04-25] MEDS: MIRTAZAPINE 15 MG TABLET PO SCH (20:09)
[2018-04-25] MEDS: HALOPERIDOL 10 MG TABLET PO SCH (20:09)
[2018-04-26] MEDS: OMEPRAZOLE 20 MG CAPSULE PO SCH (07:00)
[2018-04-26] MEDS: MULTIVITAMINS WITH MINERALS, THERAPEUTIC TABLET PO SCH ×2 (08:00→11:20)
[2018-04-26] MEDS: PARoxetine HCL 20 MG TABLET PO SCH ×2 (09:00→11:20)
[2018-04-26] MEDS: DOCUSATE SODIUM 100 MG CAPSULE PO SCH ×2 (09:00→11:20)
[2018-04-26] MEDS: CHOLECALCIFEROL (VIT D3) 1,000 UNITS TABLET PO SCH ×2 (09:00→11:20)
[2018-04-26 09:47] VITALS: BP 101/72
[2018-04-26 17:00] VITALS: BP 100/62
[2018-04-26] MEDS: HALOPERIDOL 10 MG TABLET PO SCH (20:24)
[2018-04-26] MEDS: MIRTAZAPINE 15 MG TABLET PO SCH (20:24)
[2018-04-27] MEDS: OMEPRAZOLE 20 MG CAPSULE PO SCH (06:35)
[2018-04-27 08:05] VITALS: BP 109/59
[2018-04-27] MEDS: DOCUSATE SODIUM 100 MG CAPSULE PO SCH (08:45)
[2018-04-27] MEDS: MULTIVITAMINS WITH MINERALS, THERAPEUTIC TABLET PO SCH (08:45)
[2018-04-27] MEDS: CHOLECALCIFEROL (VIT D3) 1,000 UNITS TABLET PO SCH (08:46)
[2018-04-27] MEDS: PARoxetine HCL 20 MG TABLET PO SCH (08:46)
[2018-04-27 17:18] VITALS: BP 101/61
[2018-04-27] MEDS: HALOPERIDOL 10 MG TABLET PO SCH (20:27)
[2018-04-27] MEDS: MIRTAZAPINE 15 MG TABLET PO SCH (20:27)
[2018-04-28] MEDS: OMEPRAZOLE 20 MG CAPSULE PO SCH (06:50)
[2018-04-28] MEDS: PARoxetine HCL 20 MG TABLET PO SCH (09:37)
[2018-04-28] MEDS: CHOLECALCIFEROL (VIT D3) 1,000 UNITS TABLET PO SCH (09:37)
[2018-04-28] MEDS: DOCUSATE SODIUM 100 MG CAPSULE PO SCH (09:37)
[2018-04-28] MEDS: MULTIVITAMINS WITH MINERALS, THERAPEUTIC TABLET PO SCH (09:38)
[2018-04-28 11:30] VITALS: BP 108/79
[2018-04-28 17:39] VITALS: BP 105/68
[2018-04-28] MEDS: MIRTAZAPINE 15 MG TABLET PO SCH (21:36)
[2018-04-28] MEDS: HALOPERIDOL 10 MG TABLET PO SCH (21:36)
[2018-04-29] MEDS: OMEPRAZOLE 20 MG CAPSULE PO SCH (06:52)
[2018-04-29 09:24] VITALS: BP 102/68
[2018-04-29] MEDS: DOCUSATE SODIUM 100 MG CAPSULE PO SCH (10:17)
[2018-04-29] MEDS: MULTIVITAMINS WITH MINERALS, THERAPEUTIC TABLET PO SCH (10:17)
[2018-04-29] MEDS: PARoxetine HCL 20 MG TABLET PO SCH (10:17)
[2018-04-29] MEDS: CHOLECALCIFEROL (VIT D3) 1,000 UNITS TABLET PO SCH (10:17)
[2018-04-29] MEDS ORDERED: PALIPERIDONE PALMITATE 234 MG/1.5 ML SYRINGE IM SCH (12:30)
[2018-04-29 20:16] VITALS: BP 103/69
[2018-04-29] MEDS: HALOPERIDOL 10 MG TABLET PO SCH (20:49)
[2018-04-29] MEDS: MIRTAZAPINE 15 MG TABLET PO SCH (20:49)
[2018-04-30] MEDS: OMEPRAZOLE 20 MG CAPSULE PO SCH (07:10)
[2018-04-30 09:30] VITALS: BP 101/61
[2018-04-30] MEDS: CHOLECALCIFEROL (VIT D3) 1,000 UNITS TABLET PO SCH (09:35)
[2018-04-30] MEDS: DOCUSATE SODIUM 100 MG CAPSULE PO SCH (09:35)
[2018-04-30] MEDS: MULTIVITAMINS WITH MINERALS, THERAPEUTIC TABLET PO SCH (09:35)
[2018-04-30] MEDS: PARoxetine HCL 20 MG TABLET PO SCH (09:35)
[2018-04-30] MEDS ORDERED: PALI234D IM (10:44)
[2018-04-30] MEDS ORDERED: MULT-1239 PO (10:46)
== END 2018-04-30 14:43 | disposition home or self-care (01) | DRG 750 ==
LOC: EMS 18:11 → 3EI 04-21 17:08
PROVIDERS: ADMIT Psychiatry & Neurology Psychiatry; ATTEND Psychiatry & Neurology Psychiatry
DX: F20.0 Paranoid schizophrenia (principal); Z91.14 Patient's other noncompliance with medication regimen; E55.9 Vitamin D deficiency, unspecified; F17.200 Nicotine dependence, unspecified, uncomplicated; G47.00 Insomnia, unspecified; K59.00 Constipation, unspecified; R62.7 Adult failure to thrive; F32.9 Major depressive disorder, single episode, unspecified; R00.0 Tachycardia, unspecified; Z79.899 Other long term (current) drug therapy; Z71.6 Tobacco abuse counseling
CPT/HCPCS: 93005; 99285; G0480

== ENCOUNTER 2018-06-14 10:30 | Inpatient (IN) | payer MEDICAID, OTHER ==
[~2018-06-14] VITALS: Ht 165.1 cm; Wt 98.8 kg
[~2018-06-14 10:30] MED LIST changes: +MULT-1239 PO; -MULT-685 PO; +PALI234D IM
[2018-06-14 11:55] LABS: BASOPHILS % (AUTO) 0.4 % (0.0-2.0); EOSINOPHILS % (AUTO) 0.1 % (1.0-6.0); HEMATOCRIT 54.6 % (41-53); LYMPHOCYTES # (AUTO) 2.2 K/uL (1.0-4.8); LYMPHOCYTES % (AUTO) 23.4 % (22.0-44.0); MEAN CORPUSCULAR HEMOGLOBIN 30.9 pg (26.0-34.0); MEAN CORPUSCULAR HGB CONC 34.8 G/dL (31.0-37.0); MEAN CORPUSCULAR VOLUME 89 fL (80-100); MONOCYTES # (AUTO) 0.5 K/uL (0.1-1.0); MONOCYTES % (AUTO) 5.5 % (2.0-9.0); NEUTROPHILS # (AUTO) 6.7 K/uL (1.8-7.7); NEUTROPHILS % (AUTO) 70.6 % (40.0-70.0); PLATELET COUNT (AUTO) 201 K/uL (150-450); RED BLOOD CELL COUNT(AUTO) 6.15 MIL/uL (4.50-5.90); RED CELL DISTRIBUTION WIDTH 14.2 % (11.5-14.5)
[2018-06-14] MEDS ORDERED: SODIUM CHLORIDE 0.9% 2,000 ML IV ONE (12:00)
[2018-06-14] MEDS ORDERED: ONDANSETRON HCL 4 MG/2 ML VIAL IVP ONE (12:00)
[2018-06-14 12:02] LABS: ANION GAP 20 mmol/L (8-16); CALCIUM, TOTAL 10.1 mg/dL (8.8-10.5); CARBON DIOXIDE 21 mmol/L (22-29); CHLORIDE 101 mmol/L (98-107); CREATININE 1.34 mg/dL (0.60-1.30); GLOMERULAR FILTR. RATE CALC > 60 mL/min (>60); GLUCOSE,RANDOM 92 mg/dL (70-110); POTASSIUM 4.5 mmol/L (3.5-5.1); SODIUM SERUM 142 mmol/L (136-145); UREA NITROGEN, BLOOD 17 mg/dL (7-18)
[2018-06-14 12:08] LABS: ALANINE AMINOTRANSFERASE 36 U/L (12-78); ALBUMIN 4.8 g/dL (3.4-5.0); ALKALINE PHOSPHATASE 117 U/L (46-116); ASPARTATE AMINOTRANSFERASE 25 U/L (15-37); BILIRUBIN,TOTAL 0.8 mg/dL (0.1-1.0); TOTAL PROTEIN, SERUM 10.7 g/dL (6.4-8.2)
[2018-06-14] MEDS ORDERED: LORazepam 2 MG/ML VIAL IVP ONE (12:45)
[2018-06-14] MEDS ORDERED: HALOPERIDOL 5 MG TABLET PO PRN (12:45)
[2018-06-14] MEDS ORDERED: ZOLPIDEM TARTRATE 10 MG TABLET PO PRN (12:45)
[2018-06-14 13:23] LABS: LIPASE 133 U/L (73-393)
[2018-06-14] MEDS ORDERED: LABETALOL HCL 5 MG/ML 20 ML VIAL IVP ONE (13:30)
[2018-06-14 14:15] LABS: AMPHET/METH SCREEN,URINE NEGATIVE (NEGATIVE); BARBITURATE SCREEN, URINE NEGATIVE (NEGATIVE); BENZODIAZEPINES SCREEN,URINE NEGATIVE (NEGATIVE); CANNABINOID SCREEN,URINE NEGATIVE (NEGATIVE); COCAINE SCREEN,URINE NEGATIVE (NEGATIVE); METHADONE SCREEN, URINE NEGATIVE (NEGATIVE); OPIATE SCREEN,URINE NEGATIVE (NEGATIVE)
[2018-06-14 14:16] LABS: PHENCYCLIDINE SCREEN,URINE NEGATIVE (NEGATIVE)
[2018-06-14] MEDS ORDERED: HALOPERIDOL 5 MG TABLET PO ONE (15:30)
[2018-06-14 16:15] VITALS: BP 124/74
[2018-06-14] MEDS ORDERED: LOPERAMIDE HCL 2 MG CAPSULE PO PRN (22:15)
[2018-06-14] MEDS ORDERED: MAG HYDROX/AL HYDROX/SIMETH ES 30 ML SUSPENSION UDCUP PO PRN (22:15)
[2018-06-14] MEDS ORDERED: BACITRACIN 28.4 GM OINTMENT TP PRN (22:15)
[2018-06-14] MEDS ORDERED: ACETAMINOPHEN 325 MG TABLET PO PRN (22:15)
[2018-06-14] MEDS ORDERED: ONDANSETRON HCL 4 MG TABLET PO PRN (22:15)
[2018-06-14] MEDS ORDERED: ALBUTEROL SULFATE HFA 90 MCG/PUFF 8 GM INHALER IH PRN (22:15)
[2018-06-14] MEDS ORDERED: PETROLATUM,WHITE 71 GM JELLY TP PRN (22:15)
[2018-06-14] MEDS ORDERED: CloNIDine HCL 0.1 MG TABLET PO PRN (22:15)
[2018-06-14] MEDS ORDERED: BENZOCAINE/MENTHOL LOZENGE MM PRN (22:15)
[2018-06-14] MEDS ORDERED: MAGNESIUM HYDROXIDE SUSPENSION 30 ML UDCUP PO PRN (22:15)
[2018-06-14 22:25] VITALS: BP 104/72
[2018-06-15] MEDS: MEGESTROL ACETATE 400 MG/10 ML SUSPENSION UDCUP PO SCH (06:27)
[2018-06-15 09:00] VITALS: BP 117/61
[2018-06-15] MEDS: DOCUSATE SODIUM 100 MG CAPSULE PO SCH (09:00)
[2018-06-15] MEDS: OMEPRAZOLE 20 MG CAPSULE PO SCH (09:30)
[2018-06-15] MEDS: LORazepam 2 MG TABLET PO PRN (11:44)
[2018-06-15 20:50] VITALS: BP 128/73
[2018-06-15] MEDS: HALOPERIDOL 10 MG TABLET PO SCH (21:37)
[2018-06-15] MEDS: MIRTAZAPINE 15 MG TABLET PO SCH (21:37)
[2018-06-16 02:27] VITALS: BP 129/82
[2018-06-16] MEDS: IBUPROFEN 600 MG TABLET PO PRN (02:31)
[2018-06-16] MEDS: MEGESTROL ACETATE 400 MG/10 ML SUSPENSION UDCUP PO SCH (06:56)
[2018-06-16 08:12] VITALS: BP 118/69
[2018-06-16] MEDS: OMEPRAZOLE 20 MG CAPSULE PO SCH (10:28)
[2018-06-16] MEDS: PARoxetine HCL 20 MG TABLET PO SCH (10:28)
[2018-06-16] MEDS: DOCUSATE SODIUM 100 MG CAPSULE PO SCH (10:28)
[2018-06-16] MEDS ORDERED: PALIPERIDONE PALMITATE 234 MG/1.5 ML SYRINGE IM SCH (16:00)
[2018-06-16] MEDS: HALOPERIDOL 10 MG TABLET PO SCH (21:27)
[2018-06-16] MEDS: MIRTAZAPINE 15 MG TABLET PO SCH (21:27)
[2018-06-16 21:59] VITALS: BP 120/70
[2018-06-17] MEDS: MEGESTROL ACETATE 400 MG/10 ML SUSPENSION UDCUP PO SCH (06:47)
[2018-06-17 08:30] VITALS: BP 119/66
[2018-06-17] MEDS: PARoxetine HCL 20 MG TABLET PO SCH (09:27)
[2018-06-17] MEDS: DOCUSATE SODIUM 100 MG CAPSULE PO SCH (09:27)
[2018-06-17] MEDS: OMEPRAZOLE 20 MG CAPSULE PO SCH (09:27)
[2018-06-17 16:57] VITALS: BP 129/70
[2018-06-17] MEDS: MIRTAZAPINE 15 MG TABLET PO SCH (21:33)
[2018-06-17] MEDS: HALOPERIDOL 10 MG TABLET PO SCH (21:33)
[2018-06-18] MEDS: MEGESTROL ACETATE 400 MG/10 ML SUSPENSION UDCUP PO SCH (06:37)
[2018-06-18 08:41] VITALS: BP 118/75
[2018-06-18] MEDS: PARoxetine HCL 20 MG TABLET PO SCH (08:41)
[2018-06-18] MEDS: OMEPRAZOLE 20 MG CAPSULE PO SCH (08:41)
[2018-06-18] MEDS: DOCUSATE SODIUM 100 MG CAPSULE PO SCH (08:41)
[2018-06-18 16:20] VITALS: BP 112/62
[2018-06-18] MEDS: IBUPROFEN 600 MG TABLET PO PRN (16:21)
[2018-06-18] MEDS: HALOPERIDOL 10 MG TABLET PO SCH (20:34)
[2018-06-18] MEDS: MIRTAZAPINE 15 MG TABLET PO SCH (20:34)
[2018-06-19] MEDS: MEGESTROL ACETATE 400 MG/10 ML SUSPENSION UDCUP PO SCH (06:35)
[2018-06-19 08:20] VITALS: BP 95/62
[2018-06-19] MEDS: PARoxetine HCL 20 MG TABLET PO SCH (08:38)
[2018-06-19] MEDS: DOCUSATE SODIUM 100 MG CAPSULE PO SCH (08:38)
[2018-06-19] MEDS: OMEPRAZOLE 20 MG CAPSULE PO SCH (08:39)
[2018-06-19 09:48] VITALS: BP 95/50
[2018-06-19 16:30] VITALS: BP 129/69
[2018-06-19] MEDS: MIRTAZAPINE 15 MG TABLET PO SCH (22:00)
[2018-06-19] MEDS: HALOPERIDOL 10 MG TABLET PO SCH (22:00)
[2018-06-20] MEDS: MEGESTROL ACETATE 400 MG/10 ML SUSPENSION UDCUP PO SCH (06:51)
[2018-06-20] MEDS: DOCUSATE SODIUM 100 MG CAPSULE PO SCH (09:00)
[2018-06-20] MEDS: OMEPRAZOLE 20 MG CAPSULE PO SCH (09:00)
[2018-06-20] MEDS: PARoxetine HCL 20 MG TABLET PO SCH (09:00)
[2018-06-20 10:08] VITALS: BP 112/67
[2018-06-20 16:24] VITALS: BP 100/71
[2018-06-20 17:29] VITALS: BP 128/79
[2018-06-20] MEDS: LORazepam 2 MG TABLET PO PRN (19:30)
[2018-06-20] MEDS: IBUPROFEN 600 MG TABLET PO PRN (19:30)
[2018-06-20] MEDS: HALOPERIDOL 10 MG TABLET PO SCH (20:20)
[2018-06-20] MEDS: MIRTAZAPINE 15 MG TABLET PO SCH (20:22)
[2018-06-21] MEDS: MEGESTROL ACETATE 400 MG/10 ML SUSPENSION UDCUP PO SCH (06:37)
[2018-06-21 08:00] VITALS: BP 114/74
[2018-06-21] MEDS: OMEPRAZOLE 20 MG CAPSULE PO SCH (09:00)
[2018-06-21] MEDS: PARoxetine HCL 20 MG TABLET PO SCH ×2 (09:00→11:05)
[2018-06-21] MEDS: DOCUSATE SODIUM 100 MG CAPSULE PO SCH (09:00)
[2018-06-21] MEDS ORDERED: OMEPRAZOLE 20 MG CAPSULE PO PRN (09:30)
[2018-06-21] MEDS ORDERED: DOCUSATE SODIUM 100 MG CAPSULE PO PRN (09:30)
[2018-06-21 17:00] VITALS: BP 106/66
[2018-06-21] MEDS: HALOPERIDOL 10 MG TABLET PO SCH (21:25)
[2018-06-21] MEDS: MIRTAZAPINE 15 MG TABLET PO SCH (21:25)
[2018-06-22 08:00] VITALS: BP 108/56
[2018-06-22] MEDS: PARoxetine HCL 20 MG TABLET PO SCH (08:17)
[2018-06-22 16:33] VITALS: BP 112/59
[2018-06-22] MEDS: HALOPERIDOL 10 MG TABLET PO SCH (20:22)
[2018-06-22] MEDS: MIRTAZAPINE 15 MG TABLET PO SCH (20:22)
[2018-06-23 08:00] VITALS: BP 112/63
[2018-06-23] MEDS: PARoxetine HCL 20 MG TABLET PO SCH (08:48)
[2018-06-23 17:12] VITALS: BP 120/62
[2018-06-23] MEDS: HALOPERIDOL 10 MG TABLET PO SCH (20:45)
[2018-06-23] MEDS: MIRTAZAPINE 15 MG TABLET PO SCH (20:45)
[2018-06-24 08:00] VITALS: BP 113/71
[2018-06-24] MEDS: PARoxetine HCL 20 MG TABLET PO SCH (08:29)
[2018-06-24 16:34] VITALS: BP 114/67
[2018-06-24] MEDS: HALOPERIDOL 10 MG TABLET PO SCH (20:07)
[2018-06-24] MEDS: MIRTAZAPINE 15 MG TABLET PO SCH (20:07)
[2018-06-25 08:42] VITALS: BP 130/90
[2018-06-25] MEDS: PARoxetine HCL 20 MG TABLET PO SCH (09:24)
[2018-06-25 16:53] VITALS: BP 142/76
[2018-06-25] MEDS: LORazepam 2 MG TABLET PO PRN (16:53)
[2018-06-25] MEDS: IBUPROFEN 600 MG TABLET PO PRN (16:54)
[2018-06-25] MEDS: HALOPERIDOL 10 MG TABLET PO SCH (20:16)
[2018-06-25] MEDS: MIRTAZAPINE 15 MG TABLET PO SCH (20:16)
[2018-06-26] MEDS: PARoxetine HCL 20 MG TABLET PO SCH (08:02)
[2018-06-26 08:48] VITALS: BP 113/68
[2018-06-26 17:28] VITALS: BP 136/78
[2018-06-26 19:05] VITALS: BP 125/82
[2018-06-26] MEDS: IBUPROFEN 600 MG TABLET PO PRN (19:05)
[2018-06-26] MEDS: MIRTAZAPINE 15 MG TABLET PO SCH (21:09)
[2018-06-26] MEDS: HALOPERIDOL 10 MG TABLET PO SCH (21:09)
[2018-06-27] MEDS: PARoxetine HCL 20 MG TABLET PO SCH (08:08)
[2018-06-27 08:23] VITALS: BP 108/70
[2018-06-27 17:30] VITALS: BP 143/87
[2018-06-27] MEDS: HALOPERIDOL 10 MG TABLET PO SCH (20:43)
[2018-06-27] MEDS: MIRTAZAPINE 15 MG TABLET PO SCH (20:43)
[2018-06-28 09:33] VITALS: BP 114/58
[2018-06-28] MEDS: PARoxetine HCL 20 MG TABLET PO SCH (10:01)
[2018-06-28 16:57] VITALS: BP_SYST 104; BP_SYST 111; BP_DIAS 66; BP_DIAS 67
[2018-06-28] MEDS: HALOPERIDOL 10 MG TABLET PO SCH (21:48)
[2018-06-28] MEDS: MIRTAZAPINE 15 MG TABLET PO SCH (21:48)
[2018-06-29 08:15] VITALS: BP 97/61
[2018-06-29] MEDS: PARoxetine HCL 20 MG TABLET PO SCH (09:02)
[2018-06-29 16:45] VITALS: BP 110/67
[2018-06-29] MEDS: MIRTAZAPINE 15 MG TABLET PO SCH (20:37)
[2018-06-29] MEDS: HALOPERIDOL 10 MG TABLET PO SCH (20:37)
[2018-06-30] MEDS: PARoxetine HCL 20 MG TABLET PO SCH (09:59)
[2018-06-30 10:09] VITALS: BP 117/62
== END 2018-06-30 18:00 | disposition home or self-care (01) | DRG 750 ==
LOC: EMS 10:32 → AHU 13:57 → 3EI 06-15 19:45
PROVIDERS: ADMIT Psychiatry & Neurology Psychiatry; ATTEND Psychiatry & Neurology Psychiatry
DX: F20.0 Paranoid schizophrenia (principal); R45.851 Suicidal ideations; E86.0 Dehydration; E55.9 Vitamin D deficiency, unspecified; F41.9 Anxiety disorder, unspecified; F17.200 Nicotine dependence, unspecified, uncomplicated; K59.00 Constipation, unspecified; Z28.21 Immunization not carried out because of patient refusal; Z56.0 Unemployment, unspecified; Z79.899 Other long term (current) drug therapy
CPT/HCPCS: 90686; 96361; 96374; 96375; G0378; G0480; J2060; J2405; J3490

== ENCOUNTER 2018-10-06 18:38 | Inpatient (IN) | payer MEDICARE, MEDICAID ==
[~2018-10-06] VITALS: Ht 170.2 cm; Wt 98.6 kg
[~2018-10-06 18:38] MED LIST changes: -DSS100 PO; -MULT-1239 PO; -OMEP20 PO
[2018-10-06 22:31] LABS: BASOPHILS % (AUTO) 0.5 % (0.0-2.0); EOSINOPHILS % (AUTO) 0.3 % (1.0-6.0); HEMATOCRIT 43.1 % (41-53); HEMOGLOBIN 15.1 g/dL (13.5-17.5); LYMPHOCYTES # (AUTO) 2.8 K/uL (1.0-4.8); LYMPHOCYTES % (AUTO) 35.6 % (22.0-44.0); MEAN CORPUSCULAR HEMOGLOBIN 31.4 pg (26.0-34.0); MEAN CORPUSCULAR VOLUME 90 fL (80-100); MONOCYTES # (AUTO) 0.4 K/uL (0.1-1.0); MONOCYTES % (AUTO) 5.7 % (2.0-9.0); NEUTROPHILS # (AUTO) 4.5 K/uL (1.8-7.7); NEUTROPHILS % (AUTO) 57.9 % (40.0-70.0); PLATELET COUNT (AUTO) 236 K/uL (150-450); RED CELL DISTRIBUTION WIDTH 13.7 % (11.5-14.5)
[2018-10-06 22:39] LABS: AMPHET/METH SCREEN,URINE NEGATIVE (NEGATIVE); BARBITURATE SCREEN, URINE NEGATIVE (NEGATIVE); BENZODIAZEPINES SCREEN,URINE NEGATIVE (NEGATIVE); CANNABINOID SCREEN,URINE NEGATIVE (NEGATIVE); COCAINE SCREEN,URINE NEGATIVE (NEGATIVE); METHADONE SCREEN, URINE NEGATIVE (NEGATIVE); OPIATE SCREEN,URINE NEGATIVE (NEGATIVE)
[2018-10-06 22:40] LABS: PHENCYCLIDINE SCREEN,URINE NEGATIVE (NEGATIVE)
[2018-10-06 22:42] LABS: ANION GAP 19 mmol/L (8-16); CALCIUM, TOTAL 9.8 mg/dL (8.8-10.5); CARBON DIOXIDE 19 mmol/L (22-29); CHLORIDE 102 mmol/L (98-107); CREATININE 0.95 mg/dL (0.60-1.30); GLOMERULAR FILTR. RATE CALC > 60 mL/min (>60); GLUCOSE,RANDOM 61 mg/dL (70-110); SODIUM SERUM 140 mmol/L (136-145); UREA NITROGEN, BLOOD 13 mg/dL (7-18)
[2018-10-06 22:50] LABS: ALANINE AMINOTRANSFERASE 30 U/L (12-78); ALBUMIN 4.3 g/dL (3.4-5.0); ALKALINE PHOSPHATASE 104 U/L (46-116); ASPARTATE AMINOTRANSFERASE 19 U/L (15-37); TOTAL PROTEIN, SERUM 9.1 g/dL (6.4-8.2)
[2018-10-07] MEDS ORDERED: HALOPERIDOL 5 MG TABLET PO PRN (00:30)
[2018-10-07] MEDS ORDERED: ZOLPIDEM TARTRATE 10 MG TABLET PO PRN (00:30)
[2018-10-07 01:45] VITALS: BP 139/86
[2018-10-07 02:21] LABS: APPEARANCE,URINE CLEAR (CLEAR); GLUCOSE, URINE (UA) NEGATIVE (NEGATIVE); KETONES,URINE >=80 mg/dL (NEGATIVE); LEUKOCYTE ESTERASE ,URINE NEGATIVE (NEGATIVE); NITRATE,URINE NEGATIVE (NEGATIVE); OCCULT BLOOD,URINE NEGATIVE (NEGATIVE); PH,URINE 5.5 (5.0-8.0); PROTEIN,URINE POS 1+ (NEGATIVE); UROBILINOGEN,URINE 0.2 mg/dL (<=1.0)
[2018-10-07 02:24] LABS: BILIRUBIN,URINE PRELIM. POSITIVE (NEGATIVE)
[2018-10-07 02:28] LABS: BACTERIA,URINE None Seen /HPF (None Seen); HYALINE CASTS, URINE 0-2 /LPF (None Seen); RBC,URINE 0-2 /HPF (0-2); SQUAMOUS EPITHELIAL CELL,UR Rare /LPF (None Seen); WBC,URINE 0-2 /HPF (0-5)
[2018-10-07 08:00] VITALS: BP 104/64
[2018-10-07] MEDS ORDERED: PETROLATUM,WHITE 71 GM JELLY TP PRN (19:15)
[2018-10-07] MEDS ORDERED: CloNIDine HCL 0.1 MG TABLET PO PRN (19:15)
[2018-10-07] MEDS ORDERED: BENZOCAINE/MENTHOL LOZENGE MM PRN (19:15)
[2018-10-07] MEDS ORDERED: ALBUTEROL SULFATE HFA 90 MCG/PUFF 8 GM INHALER IH PRN (19:15)
[2018-10-07] MEDS ORDERED: MAG HYDROX/AL HYDROX/SIMETH ES 30 ML SUSPENSION UDCUP PO PRN (19:15)
[2018-10-07] MEDS ORDERED: ACETAMINOPHEN 325 MG TABLET PO PRN (19:15)
[2018-10-07] MEDS ORDERED: BACITRACIN 28.4 GM OINTMENT TP PRN (19:15)
[2018-10-07] MEDS ORDERED: OMEPRAZOLE 20 MG CAPSULE PO PRN (19:15)
[2018-10-07] MEDS ORDERED: LOPERAMIDE HCL 2 MG CAPSULE PO PRN (19:15)
[2018-10-08 06:26] VITALS: BP 97/59
[2018-10-08 08:22] VITALS: BP 106/71
[2018-10-08] MEDS: MULTIVITAMINS, THERAPEUTIC TABLET PO SCH (09:52)
[2018-10-08] MEDS: CHOLECALCIFEROL (VIT D3) 1,000 UNITS TABLET PO SCH (09:52)
[2018-10-08] MEDS: LORazepam 2 MG TABLET PO PRN (10:13)
[2018-10-08 16:59] VITALS: BP 100/72
[2018-10-09 03:15] VITALS: BP 101/85
[2018-10-09 08:45] VITALS: BP 102/60
[2018-10-09] MEDS: CHOLECALCIFEROL (VIT D3) 1,000 UNITS TABLET PO SCH (10:25)
[2018-10-09] MEDS: MULTIVITAMINS, THERAPEUTIC TABLET PO SCH (10:26)
[2018-10-09] MEDS: IBUPROFEN 600 MG TABLET PO PRN (12:40)
[2018-10-09] MEDS: LORazepam 2 MG TABLET PO PRN (12:41)
[2018-10-09] MEDS: MIRTAZAPINE 15 MG TABLET PO SCH (20:16)
[2018-10-09] MEDS: HALOPERIDOL 10 MG TABLET PO SCH (20:16)
[2018-10-09 20:31] VITALS: BP 98/64
[2018-10-10 08:00] VITALS: BP 95/56
[2018-10-10] MEDS: CHOLECALCIFEROL (VIT D3) 1,000 UNITS TABLET PO SCH (10:13)
[2018-10-10] MEDS: PARoxetine HCL 20 MG TABLET PO SCH (10:14)
[2018-10-10] MEDS: MULTIVITAMINS, THERAPEUTIC TABLET PO SCH (10:14)
[2018-10-10 16:29] VITALS: BP 110/65
[2018-10-10] MEDS: LORazepam 2 MG TABLET PO PRN (16:52)
[2018-10-10 17:29] VITALS: BP 107/70
[2018-10-10] MEDS: IBUPROFEN 600 MG TABLET PO PRN (17:30)
[2018-10-10] MEDS: ONDANSETRON HCL 4 MG TABLET PO PRN (17:50)
[2018-10-10 18:39] LABS: BASOPHILS % (AUTO) 0.7 % (0.0-2.0); EOSINOPHILS % (AUTO) 0.4 % (1.0-6.0); HEMATOCRIT 42.1 % (41-53); HEMOGLOBIN 14.7 g/dL (13.5-17.5); LYMPHOCYTES # (AUTO) 2.3 K/uL (1.0-4.8); LYMPHOCYTES % (AUTO) 33.9 % (22.0-44.0); MEAN CORPUSCULAR HEMOGLOBIN 31.2 pg (26.0-34.0); MEAN CORPUSCULAR VOLUME 89 fL (80-100); MONOCYTES # (AUTO) 0.4 K/uL (0.1-1.0); MONOCYTES % (AUTO) 5.2 % (2.0-9.0); NEUTROPHILS # (AUTO) 4.1 K/uL (1.8-7.7); NEUTROPHILS % (AUTO) 59.8 % (40.0-70.0); PLATELET COUNT (AUTO) 174 K/uL (150-450); RED BLOOD CELL COUNT(AUTO) 4.72 MIL/uL (4.50-5.90); RED CELL DISTRIBUTION WIDTH 13.2 % (11.5-14.5)
[2018-10-10 18:46] LABS: ANION GAP 5 mmol/L (8-16); CALCIUM, TOTAL 9.8 mg/dL (8.8-10.5); CARBON DIOXIDE 31 mmol/L (22-29); CHLORIDE 100 mmol/L (98-107); CREATININE 1.02 mg/dL (0.60-1.30); GLOMERULAR FILTR. RATE CALC > 60 mL/min (>60); GLUCOSE,RANDOM 104 mg/dL (70-110); POTASSIUM 3.2 mmol/L (3.5-5.1); SODIUM SERUM 136 mmol/L (136-145); UREA NITROGEN, BLOOD 14 mg/dL (7-18)
[2018-10-10 18:51] LABS: ALANINE AMINOTRANSFERASE 30 U/L (12-78); ALBUMIN 3.9 g/dL (3.4-5.0); ALKALINE PHOSPHATASE 90 U/L (46-116); ASPARTATE AMINOTRANSFERASE 23 U/L (15-37); BILIRUBIN,TOTAL 0.3 mg/dL (0.1-1.0); TOTAL PROTEIN, SERUM 8.2 g/dL (6.4-8.2)
[2018-10-10] MEDS ORDERED: POTASSIUM CHLORIDE 10% 40 MEQ/30 ML LIQUID UDCUP PO ONE (19:30)
[2018-10-10] MEDS ORDERED: PROMETHAZINE HCL 25 MG TABLET PO PRN (19:45)
[2018-10-10] MEDS: HALOPERIDOL 10 MG TABLET PO SCH (20:51)
[2018-10-10] MEDS: MIRTAZAPINE 15 MG TABLET PO SCH (20:52)
[2018-10-10] MEDS: MAGNESIUM HYDROXIDE SUSPENSION 30 ML UDCUP PO PRN (21:47)
[2018-10-11 04:11] LABS: APPEARANCE,URINE CLOUDY (CLEAR); BILIRUBIN,URINE NEGATIVE (NEGATIVE); GLUCOSE, URINE (UA) NEGATIVE (NEGATIVE); KETONES,URINE NEGATIVE (NEGATIVE); LEUKOCYTE ESTERASE ,URINE TRACE (NEGATIVE); NITRATE,URINE NEGATIVE (NEGATIVE); OCCULT BLOOD,URINE LARGE (NEGATIVE); PH,URINE 5.5 (5.0-8.0); PROTEIN,URINE POS 1+ (NEGATIVE); UROBILINOGEN,URINE 0.2 mg/dL (<=1.0)
[2018-10-11 04:30] LABS: RBC,URINE 26-50 /HPF (0-2); SQUAMOUS EPITHELIAL CELL,UR Rare /LPF (None Seen)
[2018-10-11 04:31] LABS: BACTERIA,URINE Few /HPF (None Seen)
[2018-10-11 06:44] LABS: ANION GAP 7 mmol/L (8-16); CALCIUM, TOTAL 9.4 mg/dL (8.8-10.5); CARBON DIOXIDE 30 mmol/L (22-29); CHLORIDE 99 mmol/L (98-107); CREATININE 1.24 mg/dL (0.60-1.30); GLOMERULAR FILTR. RATE CALC > 60 mL/min (>60); GLUCOSE,RANDOM 112 mg/dL (70-110); POTASSIUM 3.5 mmol/L (3.5-5.1); SODIUM SERUM 136 mmol/L (136-145); UREA NITROGEN, BLOOD 14 mg/dL (7-18)
[2018-10-11 08:00] VITALS: BP 119/83
[2018-10-11] MEDS: CHOLECALCIFEROL (VIT D3) 1,000 UNITS TABLET PO SCH (09:45)
[2018-10-11] MEDS: PARoxetine HCL 20 MG TABLET PO SCH (09:45)
[2018-10-11] MEDS: MULTIVITAMINS, THERAPEUTIC TABLET PO SCH (09:45)
[2018-10-11] MEDS: DOCUSATE SODIUM 100 MG CAPSULE PO PRN (09:55)
[2018-10-11] MEDS: ONDANSETRON HCL 4 MG TABLET PO PRN (09:55)
[2018-10-11] MEDS: MAGNESIUM HYDROXIDE SUSPENSION 30 ML UDCUP PO PRN (14:33)
[2018-10-11] MEDS ORDERED: MAGNESIUM CITRATE 300 ML ORAL SOLUTION PO ONE (16:15)
[2018-10-11] MEDS: HALOPERIDOL 10 MG TABLET PO SCH (20:19)
[2018-10-11] MEDS: MIRTAZAPINE 15 MG TABLET PO SCH (20:19)
[2018-10-11 21:09] VITALS: BP 123/72
[2018-10-12] MEDS: MAGNESIUM HYDROXIDE SUSPENSION 30 ML UDCUP PO PRN (02:42)
[2018-10-12] MEDS ORDERED: SODIUM PHOS/SODIUM BIPHOS 133 ML ENEMA PR ONE (07:45)
[2018-10-12 08:00] VITALS: BP 106/79
[2018-10-12] MEDS: NITROFURANTOIN/NITROFURAN MAC 100 MG CAPSULE [MACROBID] PO SCH ×2 (10:46→16:39)
[2018-10-12] MEDS: MULTIVITAMINS, THERAPEUTIC TABLET PO SCH (10:46)
[2018-10-12] MEDS: PARoxetine HCL 20 MG TABLET PO SCH (10:46)
[2018-10-12] MEDS: CHOLECALCIFEROL (VIT D3) 1,000 UNITS TABLET PO SCH (10:46)
[2018-10-12 17:30] VITALS: BP 129/85
[2018-10-12] MEDS: MIRTAZAPINE 15 MG TABLET PO SCH (20:43)
[2018-10-12] MEDS: HALOPERIDOL 10 MG TABLET PO SCH (20:43)
[2018-10-12] MEDS ORDERED: MAGNESIUM CITRATE 300 ML ORAL SOLUTION PO ONE (21:00)
[2018-10-13 09:29] VITALS: BP 114/70
[2018-10-13] MEDS: NITROFURANTOIN/NITROFURAN MAC 100 MG CAPSULE [MACROBID] PO SCH (09:51)
[2018-10-13] MEDS: MULTIVITAMINS, THERAPEUTIC TABLET PO SCH (09:54)
[2018-10-13] MEDS: PARoxetine HCL 20 MG TABLET PO SCH (09:54)
[2018-10-13] MEDS: DOCUSATE SODIUM 100 MG CAPSULE PO PRN (09:55)
[2018-10-13] MEDS: CHOLECALCIFEROL (VIT D3) 1,000 UNITS TABLET PO SCH (09:56)
[2018-10-13 10:35] LABS: HEMATOCRIT 36.8 % (41-53); HEMOGLOBIN 12.9 g/dL (13.5-17.5); MEAN CORPUSCULAR HEMOGLOBIN 31.3 pg (26.0-34.0); MEAN CORPUSCULAR HGB CONC 35.1 G/dL (31.0-37.0); MEAN CORPUSCULAR VOLUME 89 fL (80-100); PLATELET COUNT (AUTO) 138 K/uL (150-450); RED BLOOD CELL COUNT(AUTO) 4.12 MIL/uL (4.50-5.90); RED CELL DISTRIBUTION WIDTH 13.4 % (11.5-14.5)
[2018-10-13 11:02] LABS: BAND NEUTROPHILS % (MANUAL) 1 % (0-5); EOSINOPHILS % (MANUAL) 1 % (1-6); LYMPHOCYTES % (MANUAL) 34 % (22-44); MONOCYTES % (MANUAL) 6 % (2-9); SEGMENTED NEUTROPHILS % 58 % (40-70)
[2018-10-13 11:04] LABS: ANION GAP 8 mmol/L (8-16); CALCIUM, TOTAL 9.1 mg/dL (8.8-10.5); CARBON DIOXIDE 34 mmol/L (22-29); CHLORIDE 98 mmol/L (98-107); CREATININE 1.13 mg/dL (0.60-1.30); GLOMERULAR FILTR. RATE CALC > 60 mL/min (>60); GLUCOSE,RANDOM 92 mg/dL (70-110); PHOSPHORUS 3.9 mg/dL (2.5-4.9); POTASSIUM 3.6 mmol/L (3.5-5.1); SODIUM SERUM 140 mmol/L (136-145); UREA NITROGEN, BLOOD 10 mg/dL (7-18)
[2018-10-18] MEDS ORDERED: PALIPERIDONE PALMITATE 234 MG/1.5 ML SYRINGE IM SCH (09:00)
[2018-11-01] MEDS ORDERED: PALIPERIDONE PALMITATE 234 MG/1.5 ML SYRINGE IM SCH (09:00)
== END 2018-10-13 14:24 | disposition short-term general hospital (02) | DRG 885 ==
LOC: EMS 18:39 → 3EI 10-07 00:30
PROVIDERS: ADMIT Psychiatry & Neurology Psychiatry; ATTEND Psychiatry & Neurology Psychiatry
DX: F25.9 Schizoaffective disorder, unspecified (principal); R45.851 Suicidal ideations; K56.7 Ileus, unspecified; E55.9 Vitamin D deficiency, unspecified; E78.5 Hyperlipidemia, unspecified; F17.200 Nicotine dependence, unspecified, uncomplicated; F41.9 Anxiety disorder, unspecified; G47.00 Insomnia, unspecified; Z71.6 Tobacco abuse counseling
CPT/HCPCS: 74019; 76770; 83735; 84100; 85007; 87081; G0480; Q0162

== ENCOUNTER 2018-10-18 17:08 | Inpatient (IN) | payer MEDICARE, MEDICAID ==
[~2018-10-18] VITALS: Ht 165.1 cm; Wt 101.3 kg
[2018-10-18] MEDS ORDERED: HALOPERIDOL 5 MG TABLET PO PRN (18:00)
[2018-10-18] MEDS ORDERED: ZOLPIDEM TARTRATE 10 MG TABLET PO PRN (18:00)
[2018-10-18] MEDS ORDERED: LORazepam 2 MG TABLET PO PRN (18:00)
[2018-10-18 20:29] VITALS: BP 122/75
[2018-10-18] MEDS ORDERED: ACETAMINOPHEN 325 MG TABLET PO PRN (21:00)
[2018-10-18] MEDS ORDERED: BENZOCAINE/MENTHOL LOZENGE MM PRN (21:00)
[2018-10-18] MEDS ORDERED: ALBUTEROL SULFATE HFA 90 MCG/PUFF 8 GM INHALER IH PRN (21:00)
[2018-10-18] MEDS ORDERED: CloNIDine HCL 0.1 MG TABLET PO PRN (21:00)
[2018-10-18] MEDS ORDERED: IBUPROFEN 600 MG TABLET PO PRN (21:00)
[2018-10-18] MEDS ORDERED: PETROLATUM,WHITE 71 GM JELLY TP PRN (21:00)
[2018-10-18] MEDS ORDERED: LOPERAMIDE HCL 2 MG CAPSULE PO PRN (21:00)
[2018-10-18] MEDS ORDERED: MAG HYDROX/AL HYDROX/SIMETH ES 30 ML SUSPENSION UDCUP PO PRN (21:00)
[2018-10-18] MEDS ORDERED: MAGNESIUM HYDROXIDE SUSPENSION 30 ML UDCUP PO PRN (21:00)
[2018-10-18] MEDS ORDERED: ONDANSETRON HCL 4 MG TABLET PO PRN (21:00)
[2018-10-18] MEDS ORDERED: BACITRACIN 28.4 GM OINTMENT TP PRN (21:00)
[2018-10-18] MEDS: HALOPERIDOL 10 MG TABLET PO SCH (21:27)
[2018-10-18] MEDS: MIRTAZAPINE 15 MG TABLET PO SCH (21:28)
[2018-10-19] MEDS: OMEPRAZOLE 20 MG CAPSULE PO SCH (08:01)
[2018-10-19] MEDS: PARoxetine HCL 20 MG TABLET PO SCH (08:01)
[2018-10-19] MEDS: DOCUSATE SODIUM 100 MG CAPSULE PO SCH (08:01)
[2018-10-19 09:00] VITALS: BP 99/68
[2018-10-19 16:34] VITALS: BP 129/69
[2018-10-19] MEDS: HALOPERIDOL 10 MG TABLET PO SCH (20:04)
[2018-10-19] MEDS: MIRTAZAPINE 15 MG TABLET PO SCH (20:04)
[2018-10-20 08:05] VITALS: BP 103/61
[2018-10-20] MEDS: OMEPRAZOLE 20 MG CAPSULE PO SCH (08:09)
[2018-10-20] MEDS: PARoxetine HCL 20 MG TABLET PO SCH (08:09)
[2018-10-20] MEDS: DOCUSATE SODIUM 100 MG CAPSULE PO SCH (08:09)
[2018-10-20 16:02] VITALS: BP 120/71
[2018-10-20] MEDS: MIRTAZAPINE 15 MG TABLET PO SCH (20:48)
[2018-10-20] MEDS: HALOPERIDOL 10 MG TABLET PO SCH (20:48)
[2018-10-21] MEDS: PARoxetine HCL 20 MG TABLET PO SCH (08:37)
[2018-10-21] MEDS: DOCUSATE SODIUM 100 MG CAPSULE PO SCH (08:37)
[2018-10-21] MEDS: OMEPRAZOLE 20 MG CAPSULE PO SCH (08:37)
[2018-10-21 13:37] VITALS: BP 102/60
[2018-10-21 16:17] VITALS: BP 130/85
[2018-10-21] MEDS: MIRTAZAPINE 15 MG TABLET PO SCH (20:09)
[2018-10-21] MEDS: HALOPERIDOL 10 MG TABLET PO SCH (20:09)
[2018-10-22] MEDS: OMEPRAZOLE 20 MG CAPSULE PO SCH (08:11)
[2018-10-22] MEDS: PARoxetine HCL 20 MG TABLET PO SCH (08:11)
[2018-10-22] MEDS: DOCUSATE SODIUM 100 MG CAPSULE PO SCH (08:11)
[2018-10-22 10:09] VITALS: BP 98/62
[2018-10-22 16:30] VITALS: BP 100/51
[2018-10-22] MEDS: MIRTAZAPINE 15 MG TABLET PO SCH (21:05)
[2018-10-22] MEDS: HALOPERIDOL 10 MG TABLET PO SCH (21:05)
[2018-10-23 08:05] VITALS: BP 119/79
[2018-10-23] MEDS: OMEPRAZOLE 20 MG CAPSULE PO SCH (08:27)
[2018-10-23] MEDS: DOCUSATE SODIUM 100 MG CAPSULE PO SCH (08:27)
[2018-10-23] MEDS: PARoxetine HCL 20 MG TABLET PO SCH (08:27)
[2018-10-23 16:13] VITALS: BP 109/72
[2018-10-23] MEDS: HALOPERIDOL 10 MG TABLET PO SCH (20:05)
[2018-10-23] MEDS: MIRTAZAPINE 15 MG TABLET PO SCH (20:05)
[2018-10-24 08:05] VITALS: BP 122/80
[2018-10-24] MEDS: DOCUSATE SODIUM 100 MG CAPSULE PO SCH (08:35)
[2018-10-24] MEDS: PARoxetine HCL 20 MG TABLET PO SCH (08:35)
[2018-10-24] MEDS: OMEPRAZOLE 20 MG CAPSULE PO SCH (08:35)
[2018-10-24 16:57] VITALS: BP 121/77
[2018-10-24] MEDS: MIRTAZAPINE 15 MG TABLET PO SCH (20:19)
[2018-10-24] MEDS: HALOPERIDOL 10 MG TABLET PO SCH (20:19)
[2018-10-25] MEDS: DOCUSATE SODIUM 100 MG CAPSULE PO SCH (08:11)
[2018-10-25] MEDS: OMEPRAZOLE 20 MG CAPSULE PO SCH (08:11)
[2018-10-25] MEDS: PARoxetine HCL 20 MG TABLET PO SCH (08:11)
[2018-10-25 08:33] VITALS: BP 120/73
[2018-10-25] MEDS ORDERED: OMEP20 PO (13:32)
[2018-10-25] MEDS ORDERED: DSS100 PO (13:32)
[2018-11-15] MEDS ORDERED: PALIPERIDONE PALMITATE 234 MG/1.5 ML SYRINGE IM SCH (09:00)
== END 2018-10-25 15:45 | disposition home or self-care (01) | DRG 885 ==
LOC: 3EI 18:30 → 3EX 20:30
PROVIDERS: ADMIT Psychiatry & Neurology Psychiatry; ATTEND Psychiatry & Neurology Psychiatry
DX: F20.0 Paranoid schizophrenia (principal); K56.7 Ileus, unspecified; E55.9 Vitamin D deficiency, unspecified; E78.5 Hyperlipidemia, unspecified; G47.00 Insomnia, unspecified; F17.200 Nicotine dependence, unspecified, uncomplicated
CPT/HCPCS: 87081; G0378

== ENCOUNTER 2019-01-26 17:18 | Inpatient (IN) | payer MEDICAID, MEDICARE ==
[~2019-01-26] VITALS: Ht 172.7 cm; Wt 101.6 kg
[~2019-01-26 17:18] MED LIST changes: +DSS100 PO; +OMEP20 PO; -VITAD1000 PO
[2019-01-26 17:59] LABS: BASOPHILS % (AUTO) 0.5 % (0.0-2.0); EOSINOPHILS % (AUTO) 0.9 % (1.0-6.0); HEMATOCRIT 42.7 % (41-53); HEMOGLOBIN 14.7 g/dL (13.5-17.5); LYMPHOCYTES # (AUTO) 2.7 K/uL (1.0-4.8); MEAN CORPUSCULAR HEMOGLOBIN 30.3 pg (26.0-34.0); MEAN CORPUSCULAR HGB CONC 34.4 G/dL (31.0-37.0); MEAN CORPUSCULAR VOLUME 88 fL (80-100); MONOCYTES # (AUTO) 0.5 K/uL (0.1-1.0); MONOCYTES % (AUTO) 7.4 % (2.0-9.0); NEUTROPHILS # (AUTO) 2.8 K/uL (1.8-7.7); NEUTROPHILS % (AUTO) 46.2 % (40.0-70.0); PLATELET COUNT (AUTO) 170 K/uL (150-450); RED BLOOD CELL COUNT(AUTO) 4.84 MIL/uL (4.50-5.90); RED CELL DISTRIBUTION WIDTH 13.5 % (11.5-14.5)
[2019-01-26 18:19] LABS: ANION GAP 12 mmol/L (8-16); CALCIUM, TOTAL 9.4 mg/dL (8.8-10.5); CARBON DIOXIDE 25 mmol/L (22-29); CHLORIDE 102 mmol/L (98-107); GLOMERULAR FILTR. RATE CALC > 60 mL/min (>60); GLUCOSE,RANDOM 95 mg/dL (70-110); POTASSIUM 3.5 mmol/L (3.5-5.1); SODIUM SERUM 139 mmol/L (136-145); UREA NITROGEN, BLOOD 12 mg/dL (7-18)
[2019-01-26 18:25] LABS: ALANINE AMINOTRANSFERASE 21 U/L (12-78); ALBUMIN 3.8 g/dL (3.4-5.0); ALKALINE PHOSPHATASE 97 U/L (46-116); ASPARTATE AMINOTRANSFERASE 20 U/L (15-37); BILIRUBIN,TOTAL 0.4 mg/dL (0.1-1.0); TOTAL PROTEIN, SERUM 8.2 g/dL (6.4-8.2)
[2019-01-26] MEDS: HALOPERIDOL 5 MG TABLET PO ONE ×2 (19:24→19:28)
[2019-01-26] MEDS: LORazepam 2 MG TABLET PO ONE ×2 (19:24→19:28)
[2019-01-26] MEDS ORDERED: ZOLPIDEM TARTRATE 10 MG TABLET PO PRN (20:15)
[2019-01-26] MEDS ORDERED: HALOPERIDOL 5 MG TABLET PO PRN (20:15)
[2019-01-26 21:45] VITALS: BP 113/84
[2019-01-26] MEDS ORDERED: MAG HYDROX/AL HYDROX/SIMETH ES 30 ML SUSPENSION UDCUP PO PRN (22:45)
[2019-01-26] MEDS ORDERED: LOPERAMIDE HCL 2 MG CAPSULE PO PRN (22:45)
[2019-01-26] MEDS ORDERED: BACITRACIN 28.4 GM OINTMENT TP PRN (22:45)
[2019-01-26] MEDS ORDERED: MAGNESIUM HYDROXIDE SUSPENSION 30 ML UDCUP PO PRN (22:45)
[2019-01-26] MEDS ORDERED: ONDANSETRON HCL 4 MG TABLET PO PRN (22:45)
[2019-01-26] MEDS ORDERED: ALBUTEROL SULFATE HFA 90 MCG/PUFF 8 GM INHALER IH PRN (22:45)
[2019-01-26] MEDS ORDERED: BENZOCAINE/MENTHOL LOZENGE MM PRN (22:45)
[2019-01-26] MEDS ORDERED: PETROLATUM,WHITE 28 GM JELLY TP PRN (22:45)
[2019-01-26] MEDS ORDERED: ACETAMINOPHEN 325 MG TABLET PO PRN (22:45)
[2019-01-26] MEDS ORDERED: CloNIDine HCL 0.1 MG TABLET PO PRN (22:45)
[2019-01-26] MEDS ORDERED: IBUPROFEN 600 MG TABLET PO PRN (22:45)
[2019-01-27 08:00] VITALS: BP 101/68
[2019-01-27 08:05] VITALS: BP 101/68
[2019-01-27] MEDS: DOCUSATE SODIUM 100 MG CAPSULE PO SCH (08:49)
[2019-01-27] MEDS: OMEPRAZOLE 20 MG CAPSULE PO SCH (08:49)
[2019-01-27 15:48] LABS: AMPHET/METH SCREEN,URINE NEGATIVE (NEGATIVE); BARBITURATE SCREEN, URINE NEGATIVE (NEGATIVE); BENZODIAZEPINES SCREEN,URINE NEGATIVE (NEGATIVE); CANNABINOID SCREEN,URINE NEGATIVE (NEGATIVE); COCAINE SCREEN,URINE NEGATIVE (NEGATIVE); METHADONE SCREEN, URINE NEGATIVE (NEGATIVE); OPIATE SCREEN,URINE NEGATIVE (NEGATIVE)
[2019-01-27 15:49] LABS: PHENCYCLIDINE SCREEN,URINE NEGATIVE (NEGATIVE)
[2019-01-27 16:04] LABS: APPEARANCE,URINE TURBID (CLEAR); GLUCOSE, URINE (UA) NEGATIVE (NEGATIVE); KETONES,URINE TRACE mg/dL (NEGATIVE); LEUKOCYTE ESTERASE ,URINE NEGATIVE (NEGATIVE); NITRATE,URINE NEGATIVE (NEGATIVE); OCCULT BLOOD,URINE NEGATIVE (NEGATIVE); PROTEIN,URINE POS 1+ (NEGATIVE); UROBILINOGEN,URINE 0.2 mg/dL (<=1.0)
[2019-01-27 16:07] LABS: BILIRUBIN,URINE PRELIM. POSITIVE (NEGATIVE)
[2019-01-27 16:11] VITALS: BP 97/56
[2019-01-27 16:13] LABS: MUCUS,URINE Moderate LPF (None Seen); SQUAMOUS EPITHELIAL CELL,UR Rare /LPF (None Seen)
[2019-01-27 16:14] LABS: BACTERIA,URINE Rare /HPF (None Seen); RBC,URINE None Seen /HPF (0-2); WBC,URINE 0-2 /HPF (0-5)
[2019-01-27 16:19] LABS: OTHER CRYSTALS,URINE AMMONIUM BIURATES 1+ /LPF (None Seen)
[2019-01-27 16:23] LABS: CALCIUM OXALATE CRYSTALS,UR Rare /LPF (None Seen)
[2019-01-28] MEDS: OMEPRAZOLE 20 MG CAPSULE PO SCH (09:00)
[2019-01-28] MEDS: DOCUSATE SODIUM 100 MG CAPSULE PO SCH (09:00)
[2019-01-28 11:07] VITALS: BP 123/70
[2019-01-28 16:47] VITALS: BP 98/65
[2019-01-29 08:00] VITALS: BP 102/59
[2019-01-29] MEDS: DOCUSATE SODIUM 100 MG CAPSULE PO SCH (09:00)
[2019-01-29] MEDS: OMEPRAZOLE 20 MG CAPSULE PO SCH (09:00)
[2019-01-29 16:31] VITALS: BP 91/49
[2019-01-30 08:00] VITALS: BP 98/58
[2019-01-30] MEDS: DOCUSATE SODIUM 100 MG CAPSULE PO SCH (10:36)
[2019-01-30] MEDS: OMEPRAZOLE 20 MG CAPSULE PO SCH (10:36)
[2019-01-30 16:00] VITALS: BP 99/61
[2019-01-30 16:45] VITALS: BP 99/61
[2019-01-31 08:00] VITALS: BP 100/55
[2019-01-31] MEDS: DOCUSATE SODIUM 100 MG CAPSULE PO SCH (09:00)
[2019-01-31] MEDS: OMEPRAZOLE 20 MG CAPSULE PO SCH (09:00)
[2019-01-31 16:30] VITALS: BP 102/58
[2019-02-01 08:14] VITALS: BP 98/46
[2019-02-01] MEDS ORDERED: PALIPERIDONE PALMITATE 234 MG/1.5 ML SYRINGE IM SCH (09:00)
[2019-02-01] MEDS: DOCUSATE SODIUM 100 MG CAPSULE PO SCH (09:35)
[2019-02-01] MEDS: OMEPRAZOLE 20 MG CAPSULE PO SCH (09:35)
[2019-02-01 16:52] VITALS: BP 98/62
[2019-02-02] MEDS: OMEPRAZOLE 20 MG CAPSULE PO SCH (09:00)
[2019-02-02] MEDS: DOCUSATE SODIUM 100 MG CAPSULE PO SCH (09:00)
[2019-02-02 16:55] VITALS: BP 119/81
[2019-02-03 08:05] VITALS: BP 134/62
[2019-02-03] MEDS: DOCUSATE SODIUM 100 MG CAPSULE PO SCH (09:00)
[2019-02-03] MEDS: OMEPRAZOLE 20 MG CAPSULE PO SCH (09:00)
[2019-02-03 18:36] VITALS: BP 99/71
[2019-02-04 08:05] VITALS: BP 94/52
[2019-02-04] MEDS: DOCUSATE SODIUM 100 MG CAPSULE PO SCH (09:00)
[2019-02-04] MEDS: OMEPRAZOLE 20 MG CAPSULE PO SCH (09:00)
[2019-02-04 09:56] LABS: APPEARANCE,URINE CLEAR (CLEAR); BILIRUBIN,URINE NEGATIVE (NEGATIVE); GLUCOSE, URINE (UA) NEGATIVE (NEGATIVE); KETONES,URINE NEGATIVE (NEGATIVE); LEUKOCYTE ESTERASE ,URINE NEGATIVE (NEGATIVE); NITRATE,URINE NEGATIVE (NEGATIVE); OCCULT BLOOD,URINE NEGATIVE (NEGATIVE); PROTEIN,URINE NEGATIVE (NEGATIVE); UROBILINOGEN,URINE 0.2 mg/dL (<=1.0)
[2019-02-04 17:17] VITALS: BP 111/61
[2019-02-04] MEDS: LORazepam 2 MG TABLET PO PRN (17:18)
[2019-02-05 08:00] VITALS: BP 100/57
[2019-02-05] MEDS: OMEPRAZOLE 20 MG CAPSULE PO SCH (09:00)
[2019-02-05] MEDS: DOCUSATE SODIUM 100 MG CAPSULE PO SCH (09:00)
[2019-02-05 16:43] VITALS: BP 111/79
[2019-02-05] MEDS: LORazepam 2 MG TABLET PO PRN (21:24)
[2019-02-06 08:00] VITALS: BP 96/44
[2019-02-06] MEDS: LORazepam 2 MG TABLET PO PRN ×2 (11:40→20:50)
[2019-02-06] MEDS: OMEPRAZOLE 20 MG CAPSULE PO SCH (11:40)
[2019-02-06] MEDS: DOCUSATE SODIUM 100 MG CAPSULE PO SCH (11:40)
[2019-02-06 17:06] VITALS: BP 121/81
[2019-02-07] MEDS: LORazepam 2 MG TABLET PO PRN ×2 (09:39→20:22)
[2019-02-07] MEDS: OMEPRAZOLE 20 MG CAPSULE PO SCH (09:39)
[2019-02-07] MEDS: DOCUSATE SODIUM 100 MG CAPSULE PO SCH (09:41)
[2019-02-07 10:34] VITALS: BP 133/69
[2019-02-07 16:48] VITALS: BP 117/80
[2019-02-07 20:20] VITALS: BP 128/75
[2019-02-08 01:12] VITALS: BP 128/82
[2019-02-08 08:37] VITALS: BP 102/59
[2019-02-08] MEDS: DOCUSATE SODIUM 100 MG CAPSULE PO SCH (08:55)
[2019-02-08] MEDS: OMEPRAZOLE 20 MG CAPSULE PO SCH (08:55)
[2019-02-08 16:23] VITALS: BP 127/77
[2019-02-08] MEDS: LORazepam 2 MG TABLET PO PRN (21:09)
[2019-02-09] MEDS: OMEPRAZOLE 20 MG CAPSULE PO SCH (08:44)
[2019-02-09] MEDS: DOCUSATE SODIUM 100 MG CAPSULE PO SCH (08:44)
[2019-02-09 09:00] VITALS: BP 98/60
[2019-02-09 17:00] VITALS: BP 111/66
[2019-02-09] MEDS: LORazepam 2 MG TABLET PO PRN (21:11)
[2019-02-10] MEDS: OMEPRAZOLE 20 MG CAPSULE PO SCH (09:06)
[2019-02-10] MEDS: DOCUSATE SODIUM 100 MG CAPSULE PO SCH (09:06)
[2019-02-10 09:36] VITALS: BP 101/62
[2019-02-10] MEDS: PARoxetine HCL 20 MG TABLET PO SCH (13:07)
[2019-02-10] MEDS ORDERED: HALOPERIDOL 10 MG TABLET PO SCH (21:00)
[2019-02-10] MEDS ORDERED: MIRTAZAPINE 15 MG TABLET PO SCH (21:00)
[2019-02-10 21:31] VITALS: BP 104/77
[2019-02-11 09:02] VITALS: BP 110/58
[2019-02-11] MEDS: DOCUSATE SODIUM 100 MG CAPSULE PO SCH (09:19)
[2019-02-11] MEDS: OMEPRAZOLE 20 MG CAPSULE PO SCH (09:19)
[2019-02-11] MEDS: PARoxetine HCL 20 MG TABLET PO SCH (09:19)
[2019-02-16] MEDS ORDERED: PALIPERIDONE PALMITATE 234 MG/1.5 ML SYRINGE IM SCH (09:00)
[2019-02-23] MEDS ORDERED: PALIPERIDONE PALMITATE 234 MG/1.5 ML SYRINGE IM SCH (09:00)
== END 2019-02-11 16:40 | disposition home or self-care (01) | DRG 885 ==
LOC: EMS 17:18 → 3EI 20:33
PROVIDERS: ADMIT Psychiatry & Neurology Psychiatry; ATTEND Psychiatry & Neurology Psychiatry
DX: F20.0 Paranoid schizophrenia (principal); R45.851 Suicidal ideations; G47.00 Insomnia, unspecified; K59.00 Constipation, unspecified; R45.850 Homicidal ideations; E78.5 Hyperlipidemia, unspecified; E55.9 Vitamin D deficiency, unspecified; F17.200 Nicotine dependence, unspecified, uncomplicated; F41.9 Anxiety disorder, unspecified; F32.9 Major depressive disorder, single episode, unspecified
CPT/HCPCS: G0480

== ENCOUNTER 2019-07-10 06:34 | Inpatient (IN) | payer MEDICARE, MEDICAID ==
[~2019-07-10] VITALS: Ht 170.2 cm; Wt 98.4 kg
[~2019-07-10 06:34] MED LIST changes: -DSS100 PO; +MIRT-92 PO; -MIRT15 PO; -OMEP20 PO
[2019-07-10 07:11] LABS: BASOPHILS % (AUTO) 0.4 % (0.0-2.0); EOSINOPHILS % (AUTO) 0.2 % (1.0-6.0); HEMATOCRIT 50.5 % (41-53); HEMOGLOBIN 17.4 g/dL (13.5-17.5); LYMPHOCYTES # (AUTO) 2.4 K/uL (1.0-4.8); LYMPHOCYTES % (AUTO) 27.9 % (22.0-44.0); MEAN CORPUSCULAR HEMOGLOBIN 30.2 pg (26.0-34.0); MEAN CORPUSCULAR HGB CONC 34.5 G/dL (31.0-37.0); MEAN CORPUSCULAR VOLUME 87 fL (80-100); MONOCYTES # (AUTO) 0.4 K/uL (0.1-1.0); MONOCYTES % (AUTO) 4.7 % (2.0-9.0); NEUTROPHILS # (AUTO) 5.7 K/uL (1.8-7.7); NEUTROPHILS % (AUTO) 66.8 % (40.0-70.0); PLATELET COUNT (AUTO) 196 K/uL (150-450); RED BLOOD CELL COUNT(AUTO) 5.78 MIL/uL (4.50-5.90); RED CELL DISTRIBUTION WIDTH 13.9 % (11.5-14.5)
[2019-07-10 07:21] LABS: ANION GAP 19 mmol/L (8-16); CALCIUM, TOTAL 9.6 mg/dL (8.8-10.5); CARBON DIOXIDE 19 mmol/L (22-29); CHLORIDE 104 mmol/L (98-107); CREATININE 1.35 mg/dL (0.60-1.30); GLOMERULAR FILTR. RATE CALC > 60 mL/min (>60); GLUCOSE,RANDOM 93 mg/dL (70-110); SODIUM SERUM 142 mmol/L (136-145); UREA NITROGEN, BLOOD 17 mg/dL (7-18)
[2019-07-10 07:26] LABS: ALANINE AMINOTRANSFERASE 23 U/L (12-78); ALBUMIN 4.5 g/dL (3.4-5.0); ALKALINE PHOSPHATASE 112 U/L (46-116); ASPARTATE AMINOTRANSFERASE 17 U/L (15-37); BILIRUBIN,TOTAL 0.8 mg/dL (0.1-1.0); TOTAL PROTEIN, SERUM 9.5 g/dL (6.4-8.2)
[2019-07-10] MEDS ORDERED: ZOLPIDEM TARTRATE 10 MG TABLET PO PRN (09:15)
[2019-07-10] MEDS ORDERED: HALOPERIDOL 5 MG TABLET PO PRN (09:15)
[2019-07-10 10:20] LABS: AMPHET/METH SCREEN,URINE NEGATIVE (NEGATIVE); BARBITURATE SCREEN, URINE NEGATIVE (NEGATIVE); BENZODIAZEPINES SCREEN,URINE NEGATIVE (NEGATIVE); CANNABINOID SCREEN,URINE NEGATIVE (NEGATIVE); COCAINE SCREEN,URINE NEGATIVE (NEGATIVE); METHADONE SCREEN, URINE NEGATIVE (NEGATIVE); OPIATE SCREEN,URINE NEGATIVE (NEGATIVE)
[2019-07-10 10:21] LABS: PHENCYCLIDINE SCREEN,URINE NEGATIVE (NEGATIVE)
[2019-07-10 20:32] VITALS: BP 120/71
[2019-07-10] MEDS ORDERED: INFLUENZA VIRUS VACCINE QVS 2019-20 (3YR+)/PF 60 MCG/0.5 ML SYRINGE IM ONE (20:45)
[2019-07-11 08:02] LABS: CHOL/HDL RATIO 5.2 (4.2-7.3)
[2019-07-11 08:38] VITALS: BP 111/73
[2019-07-11] MEDS ORDERED: ACETAMINOPHEN 325 MG TABLET PO PRN (09:00)
[2019-07-11] MEDS ORDERED: BENZOCAINE/MENTHOL LOZENGE MM PRN (09:00)
[2019-07-11] MEDS ORDERED: MAGNESIUM HYDROXIDE SUSPENSION 30 ML UDCUP PO PRN (09:00)
[2019-07-11] MEDS ORDERED: CloNIDine HCL 0.1 MG TABLET PO PRN (09:00)
[2019-07-11] MEDS ORDERED: BACITRACIN 28.4 GM OINTMENT TP PRN (09:00)
[2019-07-11] MEDS ORDERED: ONDANSETRON HCL 4 MG TABLET PO PRN (09:00)
[2019-07-11] MEDS ORDERED: OMEPRAZOLE 20 MG CAPSULE PO PRN (09:00)
[2019-07-11] MEDS ORDERED: PETROLATUM,WHITE 28 GM JELLY TP PRN (09:00)
[2019-07-11] MEDS ORDERED: ALBUTEROL SULFATE HFA 90 MCG/PUFF 8 GM INHALER IH PRN (09:00)
[2019-07-11] MEDS ORDERED: MAG HYDROX/AL HYDROX/SIMETH ES 30 ML SUSPENSION UDCUP PO PRN (09:00)
[2019-07-11] MEDS ORDERED: LOPERAMIDE HCL 2 MG CAPSULE PO PRN (09:00)
[2019-07-11] MEDS ORDERED: DOCUSATE SODIUM 100 MG CAPSULE PO PRN (09:00)
[2019-07-11] MEDS: CHOLECALCIFEROL (VIT D3) 1,000 UNITS TABLET PO SCH (14:31)
[2019-07-11 19:07] VITALS: BP 135/90
[2019-07-11] MEDS: HALOPERIDOL 10 MG TABLET PO SCH (21:17)
[2019-07-11] MEDS: MIRTAZAPINE 15 MG TABLET PO SCH (21:17)
[2019-07-12] MEDS: PARoxetine HCL 20 MG TABLET PO SCH (08:24)
[2019-07-12] MEDS: CHOLECALCIFEROL (VIT D3) 1,000 UNITS TABLET PO SCH (08:24)
[2019-07-12 09:04] VITALS: BP 112/71
[2019-07-12 12:21] VITALS: BP 145/98
[2019-07-12] MEDS: LORazepam 2 MG TABLET PO PRN ×2 (12:31→16:51)
[2019-07-12 13:21] VITALS: BP 116/66
[2019-07-12 16:23] VITALS: BP 134/87
[2019-07-12] MEDS: MIRTAZAPINE 15 MG TABLET PO SCH (20:22)
[2019-07-12] MEDS: HALOPERIDOL 10 MG TABLET PO SCH (20:22)
[2019-07-13] MEDS: CHOLECALCIFEROL (VIT D3) 1,000 UNITS TABLET PO SCH (08:55)
[2019-07-13] MEDS: PARoxetine HCL 20 MG TABLET PO SCH (08:55)
[2019-07-13 11:17] VITALS: BP 116/68
[2019-07-13] MEDS: MULTIVITAMINS WITH MINERALS, THERAPEUTIC TABLET PO SCH (14:25)
[2019-07-13] MEDS: LORazepam 2 MG TABLET PO PRN (16:54)
[2019-07-13] MEDS: IBUPROFEN 600 MG TABLET PO PRN (16:57)
[2019-07-13 18:46] VITALS: BP 98/55
[2019-07-13] MEDS: HALOPERIDOL 10 MG TABLET PO SCH (20:23)
[2019-07-13] MEDS: MIRTAZAPINE 15 MG TABLET PO SCH (20:23)
[2019-07-14 08:15] VITALS: BP 107/76
[2019-07-14] MEDS: PARoxetine HCL 20 MG TABLET PO SCH (10:14)
[2019-07-14] MEDS: MULTIVITAMINS WITH MINERALS, THERAPEUTIC TABLET PO SCH (10:14)
[2019-07-14] MEDS: CHOLECALCIFEROL (VIT D3) 1,000 UNITS TABLET PO SCH (10:15)
[2019-07-14 18:09] VITALS: BP 104/59
[2019-07-14] MEDS: HALOPERIDOL 10 MG TABLET PO SCH (20:32)
[2019-07-14] MEDS: MIRTAZAPINE 15 MG TABLET PO SCH (20:32)
[2019-07-15] MEDS: PARoxetine HCL 20 MG TABLET PO SCH (09:53)
[2019-07-15] MEDS: MULTIVITAMINS WITH MINERALS, THERAPEUTIC TABLET PO SCH (09:55)
[2019-07-15] MEDS: CHOLECALCIFEROL (VIT D3) 1,000 UNITS TABLET PO SCH (09:55)
[2019-07-15] MEDS: LORazepam 2 MG TABLET PO PRN ×2 (09:57→17:33)
[2019-07-15 12:12] VITALS: BP 98/52
[2019-07-15 17:07] VITALS: BP 130/77
[2019-07-15] MEDS: HALOPERIDOL 10 MG TABLET PO SCH (20:27)
[2019-07-15] MEDS: MIRTAZAPINE 15 MG TABLET PO SCH (20:27)
[2019-07-16] MEDS: CHOLECALCIFEROL (VIT D3) 1,000 UNITS TABLET PO SCH (08:11)
[2019-07-16] MEDS: PARoxetine HCL 20 MG TABLET PO SCH (08:11)
[2019-07-16] MEDS: MULTIVITAMINS WITH MINERALS, THERAPEUTIC TABLET PO SCH (08:11)
[2019-07-16 10:56] VITALS: BP 112/65
[2019-07-16 19:00] VITALS: BP 106/66
[2019-07-16] MEDS: MIRTAZAPINE 15 MG TABLET PO SCH (20:40)
[2019-07-16] MEDS: HALOPERIDOL 10 MG TABLET PO SCH (20:40)
[2019-07-17 09:00] VITALS: BP 103/71
[2019-07-17] MEDS: MULTIVITAMINS WITH MINERALS, THERAPEUTIC TABLET PO SCH (09:26)
[2019-07-17] MEDS: CHOLECALCIFEROL (VIT D3) 1,000 UNITS TABLET PO SCH (09:26)
[2019-07-17] MEDS: PARoxetine HCL 20 MG TABLET PO SCH (09:27)
[2019-07-17 20:15] VITALS: BP 132/80
[2019-07-17] MEDS: HALOPERIDOL 10 MG TABLET PO SCH (20:33)
[2019-07-17] MEDS: MIRTAZAPINE 15 MG TABLET PO SCH (20:33)
[2019-07-18] MEDS: CHOLECALCIFEROL (VIT D3) 1,000 UNITS TABLET PO SCH (09:05)
[2019-07-18] MEDS: PARoxetine HCL 20 MG TABLET PO SCH (09:05)
[2019-07-18] MEDS: MULTIVITAMINS WITH MINERALS, THERAPEUTIC TABLET PO SCH (09:06)
[2019-07-18 10:00] VITALS: BP 100/60
[2019-07-18 19:08] VITALS: BP 107/59
[2019-07-18] MEDS: HALOPERIDOL 10 MG TABLET PO SCH (20:39)
[2019-07-18] MEDS: MIRTAZAPINE 15 MG TABLET PO SCH (20:39)
[2019-07-19 08:00] VITALS: BP 101/49
[2019-07-19] MEDS: PARoxetine HCL 20 MG TABLET PO SCH (10:04)
[2019-07-19] MEDS: MULTIVITAMINS WITH MINERALS, THERAPEUTIC TABLET PO SCH (10:04)
[2019-07-19] MEDS: CHOLECALCIFEROL (VIT D3) 1,000 UNITS TABLET PO SCH (10:04)
[2019-07-19] MEDS: IBUPROFEN 600 MG TABLET PO PRN (14:36)
[2019-07-19] MEDS: LORazepam 2 MG TABLET PO PRN (16:41)
[2019-07-19 16:53] VITALS: BP 126/82
[2019-07-19] MEDS: MIRTAZAPINE 15 MG TABLET PO SCH (21:01)
[2019-07-19] MEDS: HALOPERIDOL 10 MG TABLET PO SCH (21:01)
[2019-07-20 08:00] VITALS: BP 115/58
[2019-07-20] MEDS: MULTIVITAMINS WITH MINERALS, THERAPEUTIC TABLET PO SCH (08:31)
[2019-07-20] MEDS: CHOLECALCIFEROL (VIT D3) 1,000 UNITS TABLET PO SCH (08:31)
[2019-07-20] MEDS: HALOPERIDOL 10 MG TABLET PO SCH ×2 (08:31→20:32)
[2019-07-20] MEDS: PARoxetine HCL 20 MG TABLET PO SCH (08:32)
[2019-07-20 17:27] VITALS: BP 110/62
[2019-07-20] MEDS: MIRTAZAPINE 15 MG TABLET PO SCH (20:32)
[2019-07-21 08:00] VITALS: BP 98/50
[2019-07-21] MEDS: MULTIVITAMINS WITH MINERALS, THERAPEUTIC TABLET PO SCH (09:17)
[2019-07-21] MEDS: CHOLECALCIFEROL (VIT D3) 1,000 UNITS TABLET PO SCH (09:17)
[2019-07-21] MEDS: PARoxetine HCL 20 MG TABLET PO SCH (09:17)
[2019-07-21 16:00] VITALS: BP 122/78
[2019-07-21] MEDS: HALOPERIDOL 10 MG TABLET PO SCH (20:28)
[2019-07-21] MEDS: MIRTAZAPINE 15 MG TABLET PO SCH (20:29)
[2019-07-22] MEDS: PARoxetine HCL 20 MG TABLET PO SCH (08:35)
[2019-07-22] MEDS: CHOLECALCIFEROL (VIT D3) 1,000 UNITS TABLET PO SCH (08:35)
[2019-07-22] MEDS: MULTIVITAMINS WITH MINERALS, THERAPEUTIC TABLET PO SCH (08:35)
[2019-07-22 09:53] VITALS: BP 96/56
[2019-07-22 18:54] VITALS: BP 116/74
[2019-07-22] MEDS: MIRTAZAPINE 15 MG TABLET PO SCH (20:38)
[2019-07-22] MEDS: HALOPERIDOL 10 MG TABLET PO SCH (20:38)
[2019-07-23] MEDS: MULTIVITAMINS WITH MINERALS, THERAPEUTIC TABLET PO SCH (09:21)
[2019-07-23] MEDS: CHOLECALCIFEROL (VIT D3) 1,000 UNITS TABLET PO SCH (09:22)
[2019-07-23] MEDS: PARoxetine HCL 20 MG TABLET PO SCH (09:22)
[2019-07-23] MEDS: LORazepam 2 MG TABLET PO PRN (12:40)
[2019-07-23 17:00] VITALS: BP 119/76
[2019-07-23] MEDS: MIRTAZAPINE 15 MG TABLET PO SCH (20:52)
[2019-07-23] MEDS: HALOPERIDOL 10 MG TABLET PO SCH (20:52)
[2019-07-24] MEDS: MULTIVITAMINS WITH MINERALS, THERAPEUTIC TABLET PO SCH (08:08)
[2019-07-24] MEDS: PARoxetine HCL 20 MG TABLET PO SCH (08:09)
[2019-07-24] MEDS: CHOLECALCIFEROL (VIT D3) 1,000 UNITS TABLET PO SCH (08:09)
[2019-07-24 10:15] VITALS: BP 112/62
[2019-07-24 16:49] VITALS: BP 100/59
[2019-07-24] MEDS: HALOPERIDOL 10 MG TABLET PO SCH (20:47)
[2019-07-24] MEDS: MIRTAZAPINE 15 MG TABLET PO SCH (20:47)
[2019-07-25 09:00] VITALS: BP 104/56
[2019-07-25] MEDS: CHOLECALCIFEROL (VIT D3) 1,000 UNITS TABLET PO SCH (09:28)
[2019-07-25] MEDS: MULTIVITAMINS WITH MINERALS, THERAPEUTIC TABLET PO SCH (09:28)
[2019-07-25] MEDS: PARoxetine HCL 20 MG TABLET PO SCH (09:29)
[2019-07-25] MEDS ORDERED: RISPC50 IM (11:51)
[2019-07-25] MEDS ORDERED: RisperiDONE MICROSPHERES 50 MG/2 ML SYRINGE IM SCH (12:00)
== END 2019-07-25 15:45 | disposition home or self-care (01) | DRG 885 ==
LOC: EMS 06:37 → 3EX 16:39
PROVIDERS: ADMIT Psychiatry & Neurology Psychiatry; ATTEND Psychiatry & Neurology Psychiatry
DX: F25.1 Schizoaffective disorder, depressive type (principal); R45.851 Suicidal ideations; F41.9 Anxiety disorder, unspecified; G47.00 Insomnia, unspecified; K59.00 Constipation, unspecified; F19.10 Other psychoactive substance abuse, uncomplicated; F17.200 Nicotine dependence, unspecified, uncomplicated; Z91.14 Patient's other noncompliance with medication regimen; Z79.899 Other long term (current) drug therapy
CPT/HCPCS: 83036; 84439; 84443; 87081; 90686; G0378; G0480; J2794

== ENCOUNTER 2019-07-26 11:44 | Inpatient (IN) | payer MEDICARE, MEDICAID ==
[~2019-07-26] VITALS: Ht 170.2 cm; Wt 98.9 kg
[~2019-07-26 11:44] MED LIST changes: -MIRT-92 PO; +MIRT15 PO; -PALI234D IM; +RISPC50 IM
[2019-07-26 14:44] VITALS: BP 108/61
[2019-07-26] MEDS ORDERED: LORazepam 2 MG TABLET PO PRN (14:45)
[2019-07-26] MEDS ORDERED: HALOPERIDOL 5 MG TABLET PO PRN (14:45)
[2019-07-26] MEDS ORDERED: ZOLPIDEM TARTRATE 10 MG TABLET PO PRN (14:45)
[2019-07-26] MEDS ORDERED: INFLUENZA VIRUS VACCINE QVS 2019-20 (3YR+)/PF 60 MCG/0.5 ML SYRINGE IM ONE (15:00)
[2019-07-26 15:57] VITALS: BP 112/68
[2019-07-26] MEDS ORDERED: PNEUMOCOCCAL VACCINE POLYVALENT 0.5 ML VIAL [PPSV23] IM ONE (16:00)
[2019-07-26 16:02] VITALS: BP 111/75
[2019-07-26] MEDS: HALOPERIDOL 10 MG TABLET PO SCH (20:27)
[2019-07-26] MEDS: MIRTAZAPINE 15 MG TABLET PO SCH (20:27)
[2019-07-27 07:09] VITALS: BP 101/60
[2019-07-27 07:30] LABS: BASOPHILS % (AUTO) 0.5 % (0.0-2.0); EOSINOPHILS % (AUTO) 1.1 % (1.0-6.0); HEMATOCRIT 37.1 % (41-53); HEMOGLOBIN 12.9 g/dL (13.5-17.5); LYMPHOCYTES # (AUTO) 3.1 K/uL (1.0-4.8); LYMPHOCYTES % (AUTO) 44.6 % (22.0-44.0); MEAN CORPUSCULAR HEMOGLOBIN 30.4 pg (26.0-34.0); MEAN CORPUSCULAR HGB CONC 34.7 G/dL (31.0-37.0); MEAN CORPUSCULAR VOLUME 88 fL (80-100); MONOCYTES # (AUTO) 0.3 K/uL (0.1-1.0); NEUTROPHILS # (AUTO) 3.5 K/uL (1.8-7.7); NEUTROPHILS % (AUTO) 49.8 % (40.0-70.0); PLATELET COUNT (AUTO) 215 K/uL (150-450); RED BLOOD CELL COUNT(AUTO) 4.23 MIL/uL (4.50-5.90); RED CELL DISTRIBUTION WIDTH 13.8 % (11.5-14.5)
[2019-07-27] MEDS ORDERED: MAG HYDROX/AL HYDROX/SIMETH ES 30 ML SUSPENSION UDCUP PO PRN (07:45)
[2019-07-27] MEDS ORDERED: LOPERAMIDE HCL 2 MG CAPSULE PO PRN (07:45)
[2019-07-27] MEDS ORDERED: IBUPROFEN 600 MG TABLET PO PRN (07:45)
[2019-07-27] MEDS ORDERED: PETROLATUM,WHITE 28 GM JELLY TP PRN (07:45)
[2019-07-27] MEDS ORDERED: DOCUSATE SODIUM 100 MG CAPSULE PO PRN (07:45)
[2019-07-27] MEDS ORDERED: ONDANSETRON HCL 4 MG TABLET PO PRN (07:45)
[2019-07-27] MEDS ORDERED: MAGNESIUM HYDROXIDE SUSPENSION 30 ML UDCUP PO PRN (07:45)
[2019-07-27] MEDS ORDERED: BACITRACIN 28.4 GM OINTMENT TP PRN (07:45)
[2019-07-27] MEDS ORDERED: BENZOCAINE/MENTHOL LOZENGE MM PRN (07:45)
[2019-07-27] MEDS ORDERED: ACETAMINOPHEN 325 MG TABLET PO PRN (07:45)
[2019-07-27] MEDS ORDERED: ALBUTEROL SULFATE HFA 90 MCG/PUFF 8 GM INHALER IH PRN (07:45)
[2019-07-27] MEDS ORDERED: CloNIDine HCL 0.1 MG TABLET PO PRN (07:45)
[2019-07-27] MEDS ORDERED: OMEPRAZOLE 20 MG CAPSULE PO PRN (07:45)
[2019-07-27 07:50] LABS: ALANINE AMINOTRANSFERASE 62 U/L (12-78); ALBUMIN 3.3 g/dL (3.4-5.0); ALKALINE PHOSPHATASE 100 U/L (46-116); ANION GAP 7 mmol/L (8-16); ASPARTATE AMINOTRANSFERASE 22 U/L (15-37); BILIRUBIN,TOTAL 0.4 mg/dL (0.1-1.0); CALCIUM, TOTAL 8.4 mg/dL (8.8-10.5); CARBON DIOXIDE 27 mmol/L (22-29); CHLORIDE 105 mmol/L (98-107); CHOL/HDL RATIO 5.3 (4.2-7.3); CHOLESTEROL 165 mg/dL (131-200); CREATININE 1.03 mg/dL (0.60-1.30); GLOMERULAR FILTR. RATE CALC > 60 mL/min (>60); GLUCOSE,RANDOM 81 mg/dL (70-110); HDL CHOLESTEROL 31 mg/dL (40-60); LDL CHOL (CALC.) 108 mg/dL (0-130); POTASSIUM 3.5 mmol/L (3.5-5.1); SODIUM SERUM 139 mmol/L (136-145); THYROID STIMULATING HORMONE 2.71 uIU/mL (0.36-3.74); TOTAL PROTEIN, SERUM 7.2 g/dL (6.4-8.2); TRIGLYCERIDES 128 mg/dL (15-150); UREA NITROGEN, BLOOD 11 mg/dL (7-18)
[2019-07-27 07:53] LABS: APPEARANCE,URINE CLEAR (CLEAR); BILIRUBIN,URINE NEGATIVE (NEGATIVE); GLUCOSE, URINE (UA) NEGATIVE (NEGATIVE); KETONES,URINE NEGATIVE (NEGATIVE); LEUKOCYTE ESTERASE ,URINE NEGATIVE (NEGATIVE); NITRATE,URINE NEGATIVE (NEGATIVE); OCCULT BLOOD,URINE NEGATIVE (NEGATIVE); PH,URINE 7.5 (5.0-8.0); PROTEIN,URINE NEGATIVE (NEGATIVE); UROBILINOGEN,URINE 0.2 mg/dL (<=1.0)
[2019-07-27 08:01] LABS: HEMOGLOBIN A1C 5.1 % (4.5-6.2)
[2019-07-27 08:03] VITALS: BP 109/68
[2019-07-27] MEDS: PARoxetine HCL 20 MG TABLET PO SCH (09:10)
[2019-07-27 17:31] VITALS: BP 103/63
[2019-07-27] MEDS: MIRTAZAPINE 15 MG TABLET PO SCH (21:25)
[2019-07-27] MEDS: HALOPERIDOL 10 MG TABLET PO SCH (21:25)
[2019-07-28 04:59] VITALS: BP 104/60
[2019-07-28 08:10] VITALS: BP 107/73
[2019-07-28] MEDS: PARoxetine HCL 20 MG TABLET PO SCH (08:48)
[2019-07-28 16:02] VITALS: BP 109/62
[2019-07-28] MEDS: HALOPERIDOL 10 MG TABLET PO SCH (21:03)
[2019-07-28] MEDS: MIRTAZAPINE 15 MG TABLET PO SCH (21:03)
[2019-07-29 06:03] VITALS: BP 107/69
[2019-07-29 08:08] VITALS: BP 103/63
[2019-07-29] MEDS: PARoxetine HCL 20 MG TABLET PO SCH (09:00)
[2019-07-29 16:03] VITALS: BP 110/70
[2019-07-29] MEDS: MIRTAZAPINE 15 MG TABLET PO SCH (20:29)
[2019-07-29] MEDS: HALOPERIDOL 10 MG TABLET PO SCH (20:29)
[2019-07-30] MEDS: PARoxetine HCL 20 MG TABLET PO SCH (08:03)
[2019-07-30 08:19] VITALS: BP 114/67
[2019-07-30 16:02] VITALS: BP 128/82
[2019-07-30] MEDS: MIRTAZAPINE 15 MG TABLET PO SCH (20:06)
[2019-07-30] MEDS: HALOPERIDOL 10 MG TABLET PO SCH (20:06)
[2019-07-31 03:15] VITALS: BP 131/83
[2019-07-31 08:07] VITALS: BP 126/79
[2019-07-31] MEDS: PARoxetine HCL 20 MG TABLET PO SCH (10:30)
[2019-07-31 15:47] LABS: GLUCOMETER DEV NAME(LOC) BV2X.; GLUCOSE,POINT OF CARE 113 MG/DL (70-110)
[2019-07-31 16:02] VITALS: BP 108/74
[2019-07-31] MEDS: HALOPERIDOL 10 MG TABLET PO SCH (20:13)
[2019-07-31] MEDS: MIRTAZAPINE 15 MG TABLET PO SCH (20:13)
[2019-08-01 08:17] VITALS: BP 105/67
[2019-08-01] MEDS: PARoxetine HCL 20 MG TABLET PO SCH (08:22)
[2019-08-01 16:02] VITALS: BP 111/69
[2019-08-01] MEDS: HALOPERIDOL 10 MG TABLET PO SCH (20:34)
[2019-08-01] MEDS: MIRTAZAPINE 15 MG TABLET PO SCH (20:34)
[2019-08-02 06:53] VITALS: BP 122/62
[2019-08-02 08:22] VITALS: BP 116/63
[2019-08-02] MEDS: PARoxetine HCL 20 MG TABLET PO SCH (09:15)
[2019-08-02] MEDS: MIRTAZAPINE 15 MG TABLET PO SCH (20:57)
[2019-08-02] MEDS: HALOPERIDOL 10 MG TABLET PO SCH (20:57)
[2019-08-02 22:12] VITALS: BP 110/78
[2019-08-03 06:19] VITALS: BP 99/61
[2019-08-03] MEDS: PARoxetine HCL 20 MG TABLET PO SCH (08:27)
[2019-08-03 10:29] VITALS: BP 118/63
== END 2019-08-03 10:15 | disposition home or self-care (01) | DRG 885 ==
LOC: B2X 15:15
PROVIDERS: ADMIT Psychiatry & Neurology Psychiatry; ATTEND Psychiatry & Neurology Psychiatry
DX: F25.0 Schizoaffective disorder, bipolar type (principal); F19.10 Other psychoactive substance abuse, uncomplicated; G47.00 Insomnia, unspecified; K59.00 Constipation, unspecified; F41.9 Anxiety disorder, unspecified; Z72.0 Tobacco use; Z71.89 Other specified counseling
CPT/HCPCS: 83036; 84439; 84443; 87081; 90686

== ENCOUNTER 2019-08-11 08:58 | Inpatient (IN) | payer MEDICARE, MEDICAID ==
[~2019-08-11] VITALS: Ht 170.2 cm; Wt 92.6 kg
[~2019-08-11 08:58] MED LIST changes: +MIRT-92 PO; -MIRT15 PO
[2019-08-11 09:34] LABS: BASOPHILS % (AUTO) 0.4 % (0.0-2.0); EOSINOPHILS % (AUTO) 0.5 % (1.0-6.0); HEMATOCRIT 48.6 % (41-53); HEMOGLOBIN 16.7 g/dL (13.5-17.5); LYMPHOCYTES # (AUTO) 2.8 K/uL (1.0-4.8); LYMPHOCYTES % (AUTO) 39.7 % (22.0-44.0); MEAN CORPUSCULAR HEMOGLOBIN 30.5 pg (26.0-34.0); MEAN CORPUSCULAR HGB CONC 34.4 G/dL (31.0-37.0); MEAN CORPUSCULAR VOLUME 89 fL (80-100); MONOCYTES # (AUTO) 0.4 K/uL (0.1-1.0); MONOCYTES % (AUTO) 5.8 % (2.0-9.0); NEUTROPHILS # (AUTO) 3.8 K/uL (1.8-7.7); NEUTROPHILS % (AUTO) 53.6 % (40.0-70.0); PLATELET COUNT (AUTO) 181 K/uL (150-450); RED BLOOD CELL COUNT(AUTO) 5.48 MIL/uL (4.50-5.90); RED CELL DISTRIBUTION WIDTH 14.6 % (11.5-14.5)
[2019-08-11 09:43] LABS: ANION GAP 19 mmol/L (8-16); CALCIUM, TOTAL 9.6 mg/dL (8.8-10.5); CARBON DIOXIDE 19 mmol/L (22-29); CHLORIDE 102 mmol/L (98-107); CREATININE 1.05 mg/dL (0.60-1.30); GLOMERULAR FILTR. RATE CALC > 60 mL/min (>60); GLUCOSE,RANDOM 71 mg/dL (70-110); POTASSIUM 3.8 mmol/L (3.5-5.1); SODIUM SERUM 140 mmol/L (136-145); UREA NITROGEN, BLOOD 11 mg/dL (7-18)
[2019-08-11 09:49] LABS: ALANINE AMINOTRANSFERASE 25 U/L (12-78); ALBUMIN 4.6 g/dL (3.4-5.0); ALKALINE PHOSPHATASE 126 U/L (46-116); ASPARTATE AMINOTRANSFERASE 18 U/L (15-37); BILIRUBIN,TOTAL 0.8 mg/dL (0.1-1.0); TOTAL PROTEIN, SERUM 9.5 g/dL (6.4-8.2)
[2019-08-11] MEDS ORDERED: HALOPERIDOL 5 MG TABLET PO PRN (10:45)
[2019-08-11] MEDS ORDERED: ZOLPIDEM TARTRATE 10 MG TABLET PO PRN (10:45)
[2019-08-11 13:23] VITALS: BP 92/79
[2019-08-11 13:37] LABS: AMPHET/METH SCREEN,URINE NEGATIVE (NEGATIVE); BARBITURATE SCREEN, URINE NEGATIVE (NEGATIVE); BENZODIAZEPINES SCREEN,URINE NEGATIVE (NEGATIVE); CANNABINOID SCREEN,URINE NEGATIVE (NEGATIVE); COCAINE SCREEN,URINE NEGATIVE (NEGATIVE); METHADONE SCREEN, URINE NEGATIVE (NEGATIVE); OPIATE SCREEN,URINE NEGATIVE (NEGATIVE)
[2019-08-11 13:43] LABS: PHENCYCLIDINE SCREEN,URINE NEGATIVE (NEGATIVE)
[2019-08-11] MEDS ORDERED: INFLUENZA VIRUS VACCINE QVS 2019-20 (3YR+)/PF 60 MCG/0.5 ML SYRINGE IM ONE (14:15)
[2019-08-11 14:29] VITALS: BP 124/90
[2019-08-11 19:49] VITALS: BP 97/66
[2019-08-12 04:45] VITALS: BP 105/58
[2019-08-12 08:07] LABS: CHOL/HDL RATIO 6.8 (4.2-7.3)
[2019-08-12] MEDS ORDERED: CloNIDine HCL 0.1 MG TABLET PO PRN (08:15)
[2019-08-12] MEDS ORDERED: ACETAMINOPHEN 325 MG TABLET PO PRN (08:15)
[2019-08-12] MEDS ORDERED: ALBUTEROL SULFATE HFA 90 MCG/PUFF 8 GM INHALER IH PRN (08:15)
[2019-08-12] MEDS ORDERED: IBUPROFEN 600 MG TABLET PO PRN (08:15)
[2019-08-12] MEDS ORDERED: ONDANSETRON HCL 4 MG TABLET PO PRN (08:15)
[2019-08-12] MEDS ORDERED: BACITRACIN 28.4 GM OINTMENT TP PRN (08:15)
[2019-08-12] MEDS ORDERED: BENZOCAINE/MENTHOL LOZENGE MM PRN (08:15)
[2019-08-12] MEDS ORDERED: PETROLATUM,WHITE 28 GM JELLY TP PRN (08:15)
[2019-08-12] MEDS ORDERED: MAGNESIUM HYDROXIDE SUSPENSION 30 ML UDCUP PO PRN (08:15)
[2019-08-12] MEDS ORDERED: MAG HYDROX/AL HYDROX/SIMETH ES 30 ML SUSPENSION UDCUP PO PRN (08:15)
[2019-08-12] MEDS ORDERED: LOPERAMIDE HCL 2 MG CAPSULE PO PRN (08:15)
[2019-08-12] MEDS: PARoxetine HCL 20 MG TABLET PO SCH (08:50)
[2019-08-12] MEDS: RisperiDONE MICROSPHERES 50 MG/2 ML SYRINGE IM SCH (08:51)
[2019-08-12] MEDS: OMEPRAZOLE 20 MG CAPSULE PO SCH (08:52)
[2019-08-12] MEDS: DOCUSATE SODIUM 100 MG CAPSULE PO SCH (08:53)
[2019-08-12 09:54] VITALS: BP 108/78
[2019-08-12 16:37] VITALS: BP 107/63
[2019-08-12] MEDS: MIRTAZAPINE 15 MG TABLET PO SCH (20:11)
[2019-08-12] MEDS: HALOPERIDOL 10 MG TABLET PO SCH (20:12)
[2019-08-13 08:53] VITALS: BP 101/54
[2019-08-13] MEDS: OMEPRAZOLE 20 MG CAPSULE PO SCH (09:02)
[2019-08-13] MEDS: DOCUSATE SODIUM 100 MG CAPSULE PO SCH (09:02)
[2019-08-13] MEDS: PARoxetine HCL 20 MG TABLET PO SCH (09:03)
[2019-08-13 17:00] VITALS: BP 124/93
[2019-08-13] MEDS: MIRTAZAPINE 15 MG TABLET PO SCH (20:13)
[2019-08-13] MEDS: HALOPERIDOL 10 MG TABLET PO SCH (20:13)
[2019-08-14] MEDS: PARoxetine HCL 20 MG TABLET PO SCH (08:50)
[2019-08-14] MEDS: DOCUSATE SODIUM 100 MG CAPSULE PO SCH (08:50)
[2019-08-14] MEDS: OMEPRAZOLE 20 MG CAPSULE PO SCH (08:50)
[2019-08-14 13:00] VITALS: BP 102/64
[2019-08-14 16:49] VITALS: BP 109/64
[2019-08-14] MEDS: MIRTAZAPINE 15 MG TABLET PO SCH (21:00)
[2019-08-14] MEDS: HALOPERIDOL 10 MG TABLET PO SCH (21:00)
[2019-08-15] MEDS: DOCUSATE SODIUM 100 MG CAPSULE PO SCH (08:32)
[2019-08-15] MEDS: OMEPRAZOLE 20 MG CAPSULE PO SCH (08:32)
[2019-08-15] MEDS: PARoxetine HCL 20 MG TABLET PO SCH (08:32)
[2019-08-15 10:32] VITALS: BP 110/77
[2019-08-15 17:00] VITALS: BP 137/80
[2019-08-15] MEDS: MIRTAZAPINE 15 MG TABLET PO SCH (20:17)
[2019-08-15] MEDS: HALOPERIDOL 10 MG TABLET PO SCH (20:17)
[2019-08-16] MEDS: OMEPRAZOLE 20 MG CAPSULE PO SCH (08:30)
[2019-08-16] MEDS: DOCUSATE SODIUM 100 MG CAPSULE PO SCH (08:30)
[2019-08-16] MEDS: PARoxetine HCL 20 MG TABLET PO SCH (08:30)
[2019-08-16 10:33] VITALS: BP 122/64
[2019-08-16 18:13] VITALS: BP 98/67
[2019-08-16] MEDS: MIRTAZAPINE 15 MG TABLET PO SCH (20:14)
[2019-08-16] MEDS: HALOPERIDOL 10 MG TABLET PO SCH (20:14)
[2019-08-17 08:49] VITALS: BP 109/71
[2019-08-17] MEDS: HALOPERIDOL 10 MG TABLET PO SCH ×2 (09:40→20:21)
[2019-08-17] MEDS: PARoxetine HCL 20 MG TABLET PO SCH (09:41)
[2019-08-17] MEDS: DOCUSATE SODIUM 100 MG CAPSULE PO SCH (09:42)
[2019-08-17] MEDS: OMEPRAZOLE 20 MG CAPSULE PO SCH (09:43)
[2019-08-17 16:46] VITALS: BP 100/59
[2019-08-17] MEDS: MIRTAZAPINE 15 MG TABLET PO SCH (20:21)
[2019-08-18 08:45] VITALS: BP 109/75
[2019-08-18] MEDS: OMEPRAZOLE 20 MG CAPSULE PO SCH (09:00)
[2019-08-18] MEDS: DOCUSATE SODIUM 100 MG CAPSULE PO SCH (09:00)
[2019-08-18] MEDS: PARoxetine HCL 20 MG TABLET PO SCH (09:00)
[2019-08-18 16:00] VITALS: BP 95/50
[2019-08-18] MEDS: HALOPERIDOL 10 MG TABLET PO SCH (20:22)
[2019-08-18] MEDS: MIRTAZAPINE 15 MG TABLET PO SCH (20:23)
[2019-08-19] MEDS: PARoxetine HCL 20 MG TABLET PO SCH (08:40)
[2019-08-19] MEDS: OMEPRAZOLE 20 MG CAPSULE PO SCH (08:40)
[2019-08-19] MEDS: DOCUSATE SODIUM 100 MG CAPSULE PO SCH (08:40)
[2019-08-19 09:10] VITALS: BP 90/58
[2019-08-19 19:22] VITALS: BP 105/69
[2019-08-19] MEDS: MIRTAZAPINE 15 MG TABLET PO SCH (20:22)
[2019-08-19] MEDS: HALOPERIDOL 10 MG TABLET PO SCH (20:22)
[2019-08-20 08:45] VITALS: BP 98/57
[2019-08-20] MEDS: DOCUSATE SODIUM 100 MG CAPSULE PO SCH (08:56)
[2019-08-20] MEDS: PARoxetine HCL 20 MG TABLET PO SCH (08:56)
[2019-08-20] MEDS: OMEPRAZOLE 20 MG CAPSULE PO SCH (08:56)
[2019-08-20 17:00] VITALS: BP 94/55
[2019-08-20] MEDS: HALOPERIDOL 10 MG TABLET PO SCH (21:00)
[2019-08-20] MEDS: MIRTAZAPINE 15 MG TABLET PO SCH (21:00)
[2019-08-21 05:57] VITALS: BP 110/74
[2019-08-21] MEDS: OMEPRAZOLE 20 MG CAPSULE PO SCH (09:00)
[2019-08-21] MEDS: DOCUSATE SODIUM 100 MG CAPSULE PO SCH (09:00)
[2019-08-21] MEDS: PARoxetine HCL 20 MG TABLET PO SCH (09:00)
[2019-08-21 09:28] LABS: BASOPHILS % (AUTO) 0.3 % (0.0-2.0); EOSINOPHILS % (AUTO) 0.5 % (1.0-6.0); HEMATOCRIT 41.7 % (41-53); HEMOGLOBIN 14.7 g/dL (13.5-17.5); LYMPHOCYTES # (AUTO) 3.2 K/uL (1.0-4.8); LYMPHOCYTES % (AUTO) 44.5 % (22.0-44.0); MEAN CORPUSCULAR HEMOGLOBIN 30.7 pg (26.0-34.0); MEAN CORPUSCULAR HGB CONC 35.2 G/dL (31.0-37.0); MEAN CORPUSCULAR VOLUME 87 fL (80-100); MONOCYTES # (AUTO) 0.4 K/uL (0.1-1.0); MONOCYTES % (AUTO) 5.5 % (2.0-9.0); NEUTROPHILS # (AUTO) 3.5 K/uL (1.8-7.7); NEUTROPHILS % (AUTO) 49.2 % (40.0-70.0); PLATELET COUNT (AUTO) 154 K/uL (150-450); RED BLOOD CELL COUNT(AUTO) 4.77 MIL/uL (4.50-5.90); RED CELL DISTRIBUTION WIDTH 14.3 % (11.5-14.5)
[2019-08-21 09:43] VITALS: BP 109/78
[2019-08-21 09:44] LABS: ALANINE AMINOTRANSFERASE 130 U/L (12-78); ALBUMIN 3.9 g/dL (3.4-5.0); ALKALINE PHOSPHATASE 109 U/L (46-116); ANION GAP 13 mmol/L (8-16); ASPARTATE AMINOTRANSFERASE 61 U/L (15-37); BILIRUBIN,TOTAL 0.8 mg/dL (0.1-1.0); CALCIUM, TOTAL 9.4 mg/dL (8.8-10.5); CARBON DIOXIDE 26 mmol/L (22-29); CHLORIDE 102 mmol/L (98-107); CREATININE 0.94 mg/dL (0.60-1.30); GLOMERULAR FILTR. RATE CALC > 60 mL/min (>60); GLUCOSE,RANDOM 78 mg/dL (70-110); PHOSPHORUS 3.8 mg/dL (2.5-4.9); POTASSIUM 3.6 mmol/L (3.5-5.1); SODIUM SERUM 141 mmol/L (136-145); TOTAL PROTEIN, SERUM 7.9 g/dL (6.4-8.2); UREA NITROGEN, BLOOD 16 mg/dL (7-18)
[2019-08-21 16:43] VITALS: BP 90/47
[2019-08-21] MEDS: HALOPERIDOL 10 MG TABLET PO SCH (20:17)
[2019-08-21] MEDS: MIRTAZAPINE 15 MG TABLET PO SCH (20:17)
[2019-08-22] MEDS: OMEPRAZOLE 20 MG CAPSULE PO SCH (08:33)
[2019-08-22] MEDS: PARoxetine HCL 20 MG TABLET PO SCH (08:33)
[2019-08-22] MEDS: DOCUSATE SODIUM 100 MG CAPSULE PO SCH (08:33)
[2019-08-22 08:53] VITALS: BP 96/53
[2019-08-22 19:03] VITALS: BP 109/71
[2019-08-22] MEDS: HALOPERIDOL 10 MG TABLET PO SCH (20:54)
[2019-08-22] MEDS: MIRTAZAPINE 15 MG TABLET PO SCH (20:54)
[2019-08-23] MEDS: DOCUSATE SODIUM 100 MG CAPSULE PO SCH (08:26)
[2019-08-23] MEDS: PARoxetine HCL 20 MG TABLET PO SCH (08:27)
[2019-08-23] MEDS: OMEPRAZOLE 20 MG CAPSULE PO SCH (08:27)
[2019-08-23 09:55] VITALS: BP 90/56
[2019-08-23 17:47] VITALS: BP 118/64
[2019-08-23] MEDS: MIRTAZAPINE 15 MG TABLET PO SCH (20:15)
[2019-08-23] MEDS: HALOPERIDOL 10 MG TABLET PO SCH (20:15)
[2019-08-23] MEDS: LORazepam 2 MG TABLET PO PRN (23:04)
[2019-08-24] MEDS: OMEPRAZOLE 20 MG CAPSULE PO SCH (08:07)
[2019-08-24] MEDS: DOCUSATE SODIUM 100 MG CAPSULE PO SCH (08:07)
[2019-08-24] MEDS: PARoxetine HCL 20 MG TABLET PO SCH (08:07)
[2019-08-24 08:34] VITALS: BP 107/79
[2019-08-24 17:00] VITALS: BP 121/77
[2019-08-24] MEDS: HALOPERIDOL 10 MG TABLET PO SCH (20:24)
[2019-08-24] MEDS: MIRTAZAPINE 15 MG TABLET PO SCH (20:24)
[2019-08-25] MEDS: OMEPRAZOLE 20 MG CAPSULE PO SCH (08:16)
[2019-08-25] MEDS: DOCUSATE SODIUM 100 MG CAPSULE PO SCH (08:16)
[2019-08-25] MEDS: PARoxetine HCL 20 MG TABLET PO SCH (08:16)
[2019-08-25 10:00] VITALS: BP 98/55
[2019-08-25 17:18] VITALS: BP 125/75
[2019-08-25] MEDS: HALOPERIDOL 10 MG TABLET PO SCH (21:00)
[2019-08-25] MEDS: MIRTAZAPINE 15 MG TABLET PO SCH (21:00)
[2019-08-26] MEDS: DOCUSATE SODIUM 100 MG CAPSULE PO SCH ×2 (08:16→09:00)
[2019-08-26] MEDS: OMEPRAZOLE 20 MG CAPSULE PO SCH ×2 (08:16→09:00)
[2019-08-26] MEDS: PARoxetine HCL 20 MG TABLET PO SCH ×2 (08:16→09:00)
[2019-08-26] MEDS: RisperiDONE MICROSPHERES 50 MG/2 ML SYRINGE IM SCH ×2 (09:00→21:10)
[2019-08-26 09:58] VITALS: BP 109/62
[2019-08-26 16:14] VITALS: BP 108/73
[2019-08-26] MEDS: MIRTAZAPINE 15 MG TABLET PO SCH (21:00)
[2019-08-26] MEDS: HALOPERIDOL 10 MG TABLET PO SCH (21:00)
[2019-08-27] MEDS: PARoxetine HCL 20 MG TABLET PO SCH (08:18)
[2019-08-27] MEDS: OMEPRAZOLE 20 MG CAPSULE PO SCH (08:18)
[2019-08-27] MEDS: DOCUSATE SODIUM 100 MG CAPSULE PO SCH (08:19)
[2019-08-27 08:40] VITALS: BP 94/51
[2019-08-27 16:00] VITALS: BP 99/62
[2019-08-27] MEDS: MIRTAZAPINE 15 MG TABLET PO SCH (21:00)
[2019-08-27] MEDS: HALOPERIDOL 10 MG TABLET PO SCH (21:00)
[2019-08-28] MEDS: OMEPRAZOLE 20 MG CAPSULE PO SCH ×2 (08:50→09:00)
[2019-08-28] MEDS: DOCUSATE SODIUM 100 MG CAPSULE PO SCH ×2 (08:50→09:00)
[2019-08-28] MEDS: PARoxetine HCL 20 MG TABLET PO SCH ×2 (08:50→09:00)
[2019-08-28 09:00] VITALS: BP 100/64
[2019-08-28] MEDS: LORazepam 2 MG TABLET PO PRN (17:53)
[2019-08-28 19:53] VITALS: BP 107/69
[2019-08-28] MEDS: HALOPERIDOL 10 MG TABLET PO SCH (20:15)
[2019-08-28] MEDS: MIRTAZAPINE 15 MG TABLET PO SCH (20:15)
[2019-08-29] MEDS: LORazepam 2 MG TABLET PO PRN (03:18)
[2019-08-29 03:36] VITALS: BP 100/72
[2019-08-29] MEDS: PARoxetine HCL 20 MG TABLET PO SCH (08:13)
[2019-08-29] MEDS: OMEPRAZOLE 20 MG CAPSULE PO SCH (08:14)
[2019-08-29] MEDS: DOCUSATE SODIUM 100 MG CAPSULE PO SCH (08:14)
[2019-08-29 09:48] VITALS: BP 99/55
[2019-08-29 16:46] VITALS: BP 87/50
[2019-08-29] MEDS: MIRTAZAPINE 15 MG TABLET PO SCH (20:30)
[2019-08-29] MEDS: HALOPERIDOL 10 MG TABLET PO SCH (20:31)
[2019-08-30] MEDS: DOCUSATE SODIUM 100 MG CAPSULE PO SCH (09:00)
[2019-08-30] MEDS: PARoxetine HCL 20 MG TABLET PO SCH (09:00)
[2019-08-30] MEDS: OMEPRAZOLE 20 MG CAPSULE PO SCH (09:00)
[2019-08-30 09:26] VITALS: BP 103/59
[2019-08-30] MEDS ORDERED: DOCU-275 PO (14:57)
[2019-08-30] MEDS ORDERED: OMEP20 PO (14:58)
== END 2019-08-30 15:45 | disposition home or self-care (01) | DRG 885 ==
LOC: EMS 09:00 → 3EX 12:40
PROVIDERS: ADMIT Psychiatry & Neurology Psychiatry; ATTEND Psychiatry & Neurology Psychiatry
DX: F20.0 Paranoid schizophrenia (principal); R45.851 Suicidal ideations; E55.9 Vitamin D deficiency, unspecified; E78.5 Hyperlipidemia, unspecified; F17.200 Nicotine dependence, unspecified, uncomplicated; G47.00 Insomnia, unspecified; K59.00 Constipation, unspecified; R74.0 Nonspecific elevation of levels of transaminase and lactic acid dehydrogenase [LDH]
CPT/HCPCS: 80074; 83735; 84100; 87081; G0378; G0480; J2794

== ENCOUNTER 2020-03-28 08:22 | Inpatient (IN) | payer MEDICARE, MEDICAID ==
[~2020-03-28] VITALS: Ht 172.7 cm; Wt 97.1 kg
[~2020-03-28 08:22] MED LIST changes: +DOCU-275 PO; +MIRT-89 PO; -MIRT-92 PO; +OMEP20 PO
[2020-03-28 09:01] LABS: BASOPHILS % (AUTO) 0.6 % (0.0-2.0); EOSINOPHILS % (AUTO) 0.4 % (1.0-6.0); HEMATOCRIT 47.4 % (41-53); HEMOGLOBIN 15.9 g/dL (13.5-17.5); LYMPHOCYTES # (AUTO) 2.5 K/uL (1.0-4.8); MEAN CORPUSCULAR HEMOGLOBIN 29.3 pg (26.0-34.0); MEAN CORPUSCULAR HGB CONC 33.5 G/dL (31.0-37.0); MEAN CORPUSCULAR VOLUME 88 fL (80-100); MONOCYTES # (AUTO) 0.4 K/uL (0.1-1.0); MONOCYTES % (AUTO) 5.8 % (2.0-9.0); NEUTROPHILS # (AUTO) 4.3 K/uL (1.8-7.7); NEUTROPHILS % (AUTO) 59.2 % (40.0-70.0); PLATELET COUNT (AUTO) 182 K/uL (150-450); RED BLOOD CELL COUNT(AUTO) 5.41 MIL/uL (4.50-5.90); RED CELL DISTRIBUTION WIDTH 13.8 % (11.5-14.5)
[2020-03-28 09:07] LABS: ANION GAP 17 mmol/L (8-16); CALCIUM, TOTAL 9.4 mg/dL (8.8-10.5); CARBON DIOXIDE 18 mmol/L (22-29); CHLORIDE 103 mmol/L (98-107); CREATININE 1.02 mg/dL (0.60-1.30); GLOMERULAR FILTR. RATE CALC > 60 mL/min (>60); GLUCOSE,RANDOM 71 mg/dL (70-110); POTASSIUM 3.6 mmol/L (3.5-5.1); SODIUM SERUM 138 mmol/L (136-145); UREA NITROGEN, BLOOD 18 mg/dL (7-18)
[2020-03-28 09:12] LABS: ALANINE AMINOTRANSFERASE 31 U/L (12-78); ALBUMIN 4.2 g/dL (3.4-5.0); ALKALINE PHOSPHATASE 100 U/L (46-116); ASPARTATE AMINOTRANSFERASE 17 U/L (15-37); BILIRUBIN,TOTAL 1.1 mg/dL (0.1-1.0)
[2020-03-28] MEDS ORDERED: ZOLPIDEM TARTRATE 10 MG TABLET PO PRN (11:15)
[2020-03-28] MEDS ORDERED: HALOPERIDOL 5 MG TABLET PO PRN (11:15)
[2020-03-28] MEDS ORDERED: LORazepam 2 MG TABLET PO PRN (11:15)
[2020-03-28 12:22] VITALS: BP 131/86
[2020-03-28 16:00] VITALS: BP 113/68
[2020-03-28 17:03] VITALS: BP 113/68
[2020-03-29 06:54] LABS: CHOL/HDL RATIO 8.7 (4.2-7.3)
[2020-03-29] MEDS ORDERED: DOCUSATE SODIUM 100 MG CAPSULE PO PRN (08:45)
[2020-03-29] MEDS ORDERED: MAG HYDROX/AL HYDROX/SIMETH ES 30 ML SUSPENSION UDCUP PO PRN (08:45)
[2020-03-29] MEDS ORDERED: LOPERAMIDE HCL 2 MG CAPSULE PO PRN (08:45)
[2020-03-29] MEDS ORDERED: IBUPROFEN 600 MG TABLET PO PRN (08:45)
[2020-03-29] MEDS ORDERED: PETROLATUM,WHITE 28 GM JELLY TP PRN (08:45)
[2020-03-29] MEDS ORDERED: ACETAMINOPHEN 325 MG TABLET PO PRN (08:45)
[2020-03-29] MEDS ORDERED: ALBUTEROL SULFATE HFA 90 MCG/PUFF 8 GM INHALER IH PRN (08:45)
[2020-03-29] MEDS ORDERED: CloNIDine HCL 0.1 MG TABLET PO PRN (08:45)
[2020-03-29] MEDS ORDERED: ONDANSETRON HCL 4 MG TABLET PO PRN (08:45)
[2020-03-29] MEDS ORDERED: MAGNESIUM HYDROXIDE SUSPENSION 30 ML UDCUP PO PRN (08:45)
[2020-03-29] MEDS ORDERED: BACITRACIN 28 GM OINTMENT TP PRN (08:45)
[2020-03-29] MEDS ORDERED: BENZOCAINE/MENTHOL LOZENGE PO PRN (08:45)
[2020-03-29] MEDS ORDERED: OMEPRAZOLE 20 MG CAPSULE PO PRN (08:45)
[2020-03-29] MEDS: OMEGA-3/DHA/EPA/FISH OIL 1,000 MG CAPSULE PO SCH (09:00)
[2020-03-29] MEDS: CHOLECALCIFEROL (VIT D3) 1,000 UNITS [25 MCG] TABLET PO SCH (09:00)
[2020-03-29 09:31] VITALS: BP 117/64
[2020-03-29 16:52] VITALS: BP 113/75
[2020-03-29] MEDS: ATORVASTATIN CALCIUM 20 MG TABLET PO SCH (20:56)
[2020-03-30 03:53] VITALS: BP 119/72
[2020-03-30 08:00] VITALS: BP 121/70
[2020-03-30] MEDS: CHOLECALCIFEROL (VIT D3) 1,000 UNITS [25 MCG] TABLET PO SCH (09:00)
[2020-03-30] MEDS: OMEGA-3/DHA/EPA/FISH OIL 1,000 MG CAPSULE PO SCH (09:00)
[2020-03-30 16:00] VITALS: BP 104/68
[2020-03-30] MEDS: ATORVASTATIN CALCIUM 20 MG TABLET PO SCH (21:00)
[2020-03-31 08:55] VITALS: BP 106/69
[2020-03-31] MEDS: OMEGA-3/DHA/EPA/FISH OIL 1,000 MG CAPSULE PO SCH (09:00)
[2020-03-31] MEDS: CHOLECALCIFEROL (VIT D3) 1,000 UNITS [25 MCG] TABLET PO SCH (09:00)
[2020-03-31] MEDS: BENZTROPINE MESYLATE 1 MG TABLET PO SCH (17:09)
[2020-03-31] MEDS: PARoxetine HCL 20 MG TABLET PO SCH (17:09)
[2020-03-31 18:41] VITALS: BP 114/77
[2020-03-31] MEDS: ATORVASTATIN CALCIUM 20 MG TABLET PO SCH (21:02)
[2020-03-31] MEDS: HALOPERIDOL 10 MG TABLET PO SCH (21:02)
[2020-03-31] MEDS: MIRTAZAPINE 15 MG TABLET PO SCH (21:03)
[2020-04-01 08:42] VITALS: BP 103/58
[2020-04-01] MEDS: BENZTROPINE MESYLATE 1 MG TABLET PO SCH ×2 (09:59→16:18)
[2020-04-01] MEDS: PARoxetine HCL 20 MG TABLET PO SCH (09:59)
[2020-04-01] MEDS: CHOLECALCIFEROL (VIT D3) 1,000 UNITS [25 MCG] TABLET PO SCH (09:59)
[2020-04-01] MEDS: OMEGA-3/DHA/EPA/FISH OIL 1,000 MG CAPSULE PO SCH (09:59)
[2020-04-01 16:00] VITALS: BP 139/91
[2020-04-01] MEDS: MIRTAZAPINE 15 MG TABLET PO SCH (20:46)
[2020-04-01] MEDS: HALOPERIDOL 10 MG TABLET PO SCH (20:46)
[2020-04-01] MEDS: ATORVASTATIN CALCIUM 20 MG TABLET PO SCH (20:46)
[2020-04-02 08:00] VITALS: BP 113/82
[2020-04-02] MEDS: PARoxetine HCL 20 MG TABLET PO SCH (11:10)
[2020-04-02] MEDS: OMEGA-3/DHA/EPA/FISH OIL 1,000 MG CAPSULE PO SCH (11:10)
[2020-04-02] MEDS: CHOLECALCIFEROL (VIT D3) 1,000 UNITS [25 MCG] TABLET PO SCH (11:11)
[2020-04-02] MEDS: BENZTROPINE MESYLATE 1 MG TABLET PO SCH ×2 (11:11→16:44)
[2020-04-02 16:35] VITALS: BP 112/71
[2020-04-02] MEDS: ATORVASTATIN CALCIUM 20 MG TABLET PO SCH (20:42)
[2020-04-02] MEDS: MIRTAZAPINE 15 MG TABLET PO SCH (20:42)
[2020-04-02] MEDS: HALOPERIDOL 10 MG TABLET PO SCH (20:42)
[2020-04-03] MEDS ORDERED: RisperiDONE MICROSPHERES 50 MG/2 ML SYRINGE IM SCH (09:00)
[2020-04-03] MEDS: PARoxetine HCL 20 MG TABLET PO SCH (10:27)
[2020-04-03] MEDS: BENZTROPINE MESYLATE 1 MG TABLET PO SCH (10:27)
[2020-04-03] MEDS: CHOLECALCIFEROL (VIT D3) 1,000 UNITS [25 MCG] TABLET PO SCH (10:27)
[2020-04-03] MEDS: OMEGA-3/DHA/EPA/FISH OIL 1,000 MG CAPSULE PO SCH (10:27)
[2020-04-03] MEDS ORDERED: BENZ1TAB10 PO (10:44)
[2020-04-03] MEDS ORDERED: HALO10 PO (10:47)
[2020-04-03] MEDS ORDERED: MIRT-89 PO (10:48)
[2020-04-03] MEDS ORDERED: PARO20TA24 PO (10:54)
[2020-04-03] MEDS ORDERED: CHOL100018 PO (10:57)
[2020-04-03] MEDS ORDERED: ATOR20TA86 PO (10:57)
[2020-04-03] MEDS ORDERED: OMEG-135 PO (10:58)
== END 2020-04-03 13:41 | disposition home or self-care (01) | DRG 885 ==
LOC: EMS 08:26 → 3EI 10:46 → UNDOADMIN 10:46 → 3EI 11:12
PROVIDERS: ADMIT Psychiatry & Neurology Psychiatry; ATTEND Psychiatry & Neurology Psychiatry
DX: F20.0 Paranoid schizophrenia (principal); R45.851 Suicidal ideations; F17.200 Nicotine dependence, unspecified, uncomplicated; F41.9 Anxiety disorder, unspecified; G47.00 Insomnia, unspecified; E78.5 Hyperlipidemia, unspecified; K59.00 Constipation, unspecified; E55.9 Vitamin D deficiency, unspecified; Z56.0 Unemployment, unspecified
CPT/HCPCS: G0480; J2794

== ENCOUNTER 2020-12-24 21:18 | Inpatient (IN) | payer MEDICARE, MEDICAID ==
[~2020-12-24] VITALS: Ht 167.6 cm; Wt 99.8 kg
[~2020-12-24 21:18] MED LIST changes: +ATOR20TA86 PO; +BENZ1TAB10 PO; +CHOL100044 PO; -DOCU-275 PO; +OMEG-135 PO; -OMEP20 PO; +PARO-38 PO; -PARO20TA24 PO
[2020-12-24] MEDS ORDERED: HALOPERIDOL 5 MG TABLET PO PRN (23:00)
[2020-12-24] MEDS ORDERED: LORazepam 2 MG TABLET PO PRN (23:00)
[2020-12-24 23:05] LABS: BASOPHILS % (AUTO) 0.4 % (0.0-2.0); EOSINOPHILS % (AUTO) 0.3 % (1.0-6.0); HEMATOCRIT 50.2 % (41-53); LYMPHOCYTES # (AUTO) 3.1 K/uL (1.0-4.8); LYMPHOCYTES % (AUTO) 33.5 % (22.0-44.0); MEAN CORPUSCULAR HEMOGLOBIN 30.1 pg (26.0-34.0); MEAN CORPUSCULAR HGB CONC 33.9 G/dL (31.0-37.0); MEAN CORPUSCULAR VOLUME 89 fL (80-100); MONOCYTES # (AUTO) 0.5 K/uL (0.1-1.0); MONOCYTES % (AUTO) 5.6 % (2.0-9.0); NEUTROPHILS # (AUTO) 5.6 K/uL (1.8-7.7); NEUTROPHILS % (AUTO) 60.2 % (40.0-70.0); PLATELET COUNT (AUTO) 213 K/uL (150-450); RED BLOOD CELL COUNT(AUTO) 5.66 MIL/uL (4.50-5.90); RED CELL DISTRIBUTION WIDTH 14.3 % (11.5-14.5)
[2020-12-24 23:15] LABS: ANION GAP 17 mmol/L (8-16); CALCIUM, TOTAL 9.5 mg/dL (8.8-10.5); CARBON DIOXIDE 21 mmol/L (22-29); CHLORIDE 103 mmol/L (98-107); CREATININE 1.29 mg/dL (0.60-1.30); GLOMERULAR FILTR. RATE CALC > 60 mL/min (>60); GLUCOSE,RANDOM 78 mg/dL (70-110); POTASSIUM 4.2 mmol/L (3.5-5.1); SODIUM SERUM 141 mmol/L (136-145); UREA NITROGEN, BLOOD 18 mg/dL (7-18)
[2020-12-24 23:21] LABS: ALANINE AMINOTRANSFERASE 38 U/L (12-78); ALBUMIN 4.5 g/dL (3.4-5.0); ALKALINE PHOSPHATASE 115 U/L (46-116); ASPARTATE AMINOTRANSFERASE 17 U/L (15-37); BILIRUBIN,TOTAL 0.8 mg/dL (0.1-1.0); TOTAL PROTEIN, SERUM 9.3 g/dL (6.4-8.2)
[2020-12-25 00:13] LABS: APPEARANCE,URINE CLEAR (CLEAR); GLUCOSE, URINE (UA) NEGATIVE (NEGATIVE); KETONES,URINE >=80 mg/dL (NEGATIVE); LEUKOCYTE ESTERASE ,URINE NEGATIVE (NEGATIVE); NITRATE,URINE NEGATIVE (NEGATIVE); OCCULT BLOOD,URINE NEGATIVE (NEGATIVE); PROTEIN,URINE POS 1+ (NEGATIVE)
[2020-12-25 00:14] LABS: BILIRUBIN,URINE PRELIM. POSITIVE (NEGATIVE)
[2020-12-25 00:17] LABS: AMPHET/METH SCREEN,URINE NEGATIVE (NEGATIVE); BARBITURATE SCREEN, URINE NEGATIVE (NEGATIVE); BENZODIAZEPINES SCREEN,URINE NEGATIVE (NEGATIVE); CANNABINOID SCREEN,URINE NEGATIVE (NEGATIVE); COCAINE SCREEN,URINE NEGATIVE (NEGATIVE); METHADONE SCREEN, URINE NEGATIVE (NEGATIVE); OPIATE SCREEN,URINE NEGATIVE (NEGATIVE)
[2020-12-25 00:18] LABS: PHENCYCLIDINE SCREEN,URINE NEGATIVE (NEGATIVE)
[2020-12-25 00:25] LABS: COVID AG,FIA SOURCE NASOPHARYNGEAL
[2020-12-25 01:23] LABS: CHOLESTEROL 231 mg/dL (131-200); CREATINE KINASE, TOTAL ONLY 41 U/L (39-308); HDL CHOLESTEROL 29 mg/dL (40-60); LDL CHOL (CALC.) 183 mg/dL (0-130); TRIGLYCERIDES 97 mg/dL (15-150)
[2020-12-25 01:24] LABS: ACETAMINOPHEN < 2 mcg/mL (10-30); SALICYLATE 1.3 mg/dL (2.8-20.0)
[2020-12-25 05:42] VITALS: BP 118/78
[2020-12-25] MEDS ORDERED: DOCUSATE SODIUM 100 MG CAPSULE PO PRN (08:30)
[2020-12-25] MEDS ORDERED: OMEPRAZOLE 20 MG CAPSULE PO PRN (08:30)
[2020-12-25] MEDS ORDERED: BACITRACIN 28 GM OINTMENT TP PRN (08:30)
[2020-12-25] MEDS ORDERED: PETROLATUM,WHITE 28 GM JELLY TP PRN (08:30)
[2020-12-25] MEDS ORDERED: CloNIDine HCL 0.1 MG TABLET PO PRN (08:30)
[2020-12-25] MEDS ORDERED: ONDANSETRON HCL 4 MG TABLET PO PRN (08:30)
[2020-12-25] MEDS ORDERED: ACETAMINOPHEN 325 MG TABLET PO PRN (08:30)
[2020-12-25] MEDS ORDERED: MAGNESIUM HYDROXIDE SUSPENSION 30 ML UDCUP PO PRN (08:30)
[2020-12-25] MEDS ORDERED: LOPERAMIDE HCL 2 MG CAPSULE PO PRN (08:30)
[2020-12-25] MEDS ORDERED: BENZOCAINE/MENTHOL LOZENGE PO PRN (08:30)
[2020-12-25] MEDS ORDERED: ALBUTEROL SULFATE HFA 90 MCG/PUFF 8 GM INHALER IH PRN (08:30)
[2020-12-25] MEDS ORDERED: MAG HYDROX/AL HYDROX/SIMETH ES 30 ML SUSPENSION UDCUP PO PRN (08:30)
[2020-12-25 09:13] VITALS: BP 126/99
[2020-12-25] MEDS: CHOLECALCIFEROL (VIT D3) 1,000 UNITS [25 MCG] TABLET PO SCH (09:20)
[2020-12-25] MEDS: OMEGA-3/DHA/EPA/FISH OIL 1,000 MG CAPSULE PO SCH (09:20)
[2020-12-25 16:16] VITALS: BP 124/89
[2020-12-25] MEDS: ATORVASTATIN CALCIUM 20 MG TABLET PO SCH (20:40)
[2020-12-25] MEDS: ZOLPIDEM TARTRATE 10 MG TABLET PO PRN (21:05)
[2020-12-26 05:57] VITALS: BP 103/83
[2020-12-26 08:24] VITALS: BP 108/66
[2020-12-26] MEDS: OMEGA-3/DHA/EPA/FISH OIL 1,000 MG CAPSULE PO SCH (08:57)
[2020-12-26] MEDS: CHOLECALCIFEROL (VIT D3) 1,000 UNITS [25 MCG] TABLET PO SCH (08:57)
[2020-12-26 08:58] LABS: CHOL/HDL RATIO 6.5 (4.2-7.3)
[2020-12-26 16:17] VITALS: BP 120/66
[2020-12-26] MEDS: IBUPROFEN 600 MG TABLET PO PRN (17:04)
[2020-12-26] MEDS: ATORVASTATIN CALCIUM 20 MG TABLET PO SCH (20:18)
[2020-12-26] MEDS: ZOLPIDEM TARTRATE 10 MG TABLET PO PRN (20:19)
[2020-12-27 00:45] VITALS: BP 119/70
[2020-12-27] MEDS: OMEGA-3/DHA/EPA/FISH OIL 1,000 MG CAPSULE PO SCH (09:14)
[2020-12-27] MEDS: BENZTROPINE MESYLATE 1 MG TABLET PO SCH ×2 (09:14→16:23)
[2020-12-27] MEDS: PARoxetine HCL 20 MG TABLET PO SCH (09:14)
[2020-12-27] MEDS: CHOLECALCIFEROL (VIT D3) 1,000 UNITS [25 MCG] TABLET PO SCH (09:14)
[2020-12-27 09:49] VITALS: BP 101/61
[2020-12-27 16:12] VITALS: BP 121/86
[2020-12-27] MEDS: ATORVASTATIN CALCIUM 20 MG TABLET PO SCH (20:08)
[2020-12-27] MEDS: ZOLPIDEM TARTRATE 10 MG TABLET PO PRN (20:24)
[2020-12-27] MEDS: MIRTAZAPINE 15 MG TABLET PO SCH (21:08)
[2020-12-28 00:40] VITALS: BP 101/64
[2020-12-28 00:41] VITALS: BP 101/64
[2020-12-28] MEDS: IBUPROFEN 600 MG TABLET PO PRN (00:52)
[2020-12-28] MEDS: CHOLECALCIFEROL (VIT D3) 1,000 UNITS [25 MCG] TABLET PO SCH (08:17)
[2020-12-28] MEDS: BENZTROPINE MESYLATE 1 MG TABLET PO SCH ×2 (08:17→16:36)
[2020-12-28] MEDS: PARoxetine HCL 20 MG TABLET PO SCH (08:17)
[2020-12-28] MEDS: OMEGA-3/DHA/EPA/FISH OIL 1,000 MG CAPSULE PO SCH (08:17)
[2020-12-28 08:18] VITALS: BP 111/74
[2020-12-28 17:47] VITALS: BP 107/72
[2020-12-28] MEDS: ATORVASTATIN CALCIUM 20 MG TABLET PO SCH (20:05)
[2020-12-28] MEDS: MIRTAZAPINE 15 MG TABLET PO SCH (20:05)
[2020-12-29 00:16] VITALS: BP 98/64
[2020-12-29 08:21] VITALS: BP 106/64
[2020-12-29] MEDS: BENZTROPINE MESYLATE 1 MG TABLET PO SCH ×2 (08:39→16:13)
[2020-12-29] MEDS: OMEGA-3/DHA/EPA/FISH OIL 1,000 MG CAPSULE PO SCH (08:39)
[2020-12-29] MEDS: CHOLECALCIFEROL (VIT D3) 1,000 UNITS [25 MCG] TABLET PO SCH (08:39)
[2020-12-29] MEDS: PARoxetine HCL 20 MG TABLET PO SCH (08:39)
[2020-12-29 16:15] VITALS: BP 102/68
[2020-12-29] MEDS: ATORVASTATIN CALCIUM 20 MG TABLET PO SCH (20:06)
[2020-12-29] MEDS: MIRTAZAPINE 15 MG TABLET PO SCH (20:06)
[2020-12-29 23:52] VITALS: BP 110/67
[2020-12-30 07:24] LABS: COVID AG,FIA SOURCE NASOPHARYNGEAL
[2020-12-30 08:26] VITALS: BP 114/68
[2020-12-30] MEDS: CHOLECALCIFEROL (VIT D3) 1,000 UNITS [25 MCG] TABLET PO SCH (09:00)
[2020-12-30] MEDS: BENZTROPINE MESYLATE 1 MG TABLET PO SCH ×2 (09:00→16:54)
[2020-12-30] MEDS: OMEGA-3/DHA/EPA/FISH OIL 1,000 MG CAPSULE PO SCH (09:00)
[2020-12-30] MEDS: PARoxetine HCL 20 MG TABLET PO SCH (09:00)
[2020-12-30 16:18] VITALS: BP 100/96
[2020-12-30] MEDS: MIRTAZAPINE 15 MG TABLET PO SCH (20:43)
[2020-12-30] MEDS: ATORVASTATIN CALCIUM 20 MG TABLET PO SCH (20:43)
[2020-12-30 22:03] VITALS: BP 123/79
[2020-12-31] MEDS: IBUPROFEN 600 MG TABLET PO PRN ×2 (00:01→06:48)
[2020-12-31 01:15] VITALS: BP 128/82
[2020-12-31 06:30] VITALS: BP 107/76
[2020-12-31 08:19] VITALS: BP 112/71
[2020-12-31] MEDS: CHOLECALCIFEROL (VIT D3) 1,000 UNITS [25 MCG] TABLET PO SCH (08:41)
[2020-12-31] MEDS: OMEGA-3/DHA/EPA/FISH OIL 1,000 MG CAPSULE PO SCH (08:41)
[2020-12-31] MEDS: PARoxetine HCL 20 MG TABLET PO SCH (08:41)
[2020-12-31] MEDS: BENZTROPINE MESYLATE 1 MG TABLET PO SCH (08:41)
[2020-12-31] MEDS ORDERED: RisperiDONE MICROSPHERES 50 MG/2 ML SYRINGE IM ONE (09:00)
== END 2020-12-31 15:31 | disposition short-term general hospital (02) | DRG 885 ==
LOC: EMS 21:18 → B2X 22:59 → EMS 12-25 04:30 → B2X 12-30 23:53
PROVIDERS: ADMIT Psychiatry & Neurology Psychiatry; ATTEND Psychiatry & Neurology Psychiatry
DX: F20.0 Paranoid schizophrenia (principal); R45.851 Suicidal ideations; F17.200 Nicotine dependence, unspecified, uncomplicated; E86.0 Dehydration; F41.0 Panic disorder [episodic paroxysmal anxiety]; E55.9 Vitamin D deficiency, unspecified; F41.9 Anxiety disorder, unspecified; G47.00 Insomnia, unspecified; K59.00 Constipation, unspecified; G47.9 Sleep disorder, unspecified; Z20.822 Contact with and (suspected) exposure to COVID-19; E78.5 Hyperlipidemia, unspecified
CPT/HCPCS: 80053; 80061; 81003; 82550; 83605; 85025; 99285; G0480; G0481; J2794

== ENCOUNTER 2021-08-30 16:10 | Emergency (ER) | payer MEDICARE, MEDICAID ==
[~2021-08-30] VITALS: Ht 165.1 cm; Wt 122.7 kg
[~2021-08-30 16:10] MED LIST changes: +AMOX1TAB16 PO; +CHOL-35 PO; -CHOL100044 PO
[2021-08-30 18:27] VITALS: BP 130/89
== END 2021-08-30 18:51 | disposition left against medical advice (07) ==
LOC: EMS 16:20
DX: R06.02 Shortness of breath (principal); F41.9 Anxiety disorder, unspecified; F32.9 Major depressive disorder, single episode, unspecified; F20.9 Schizophrenia, unspecified; Z86.16 Personal history of COVID-19; Z79.899 Other long term (current) drug therapy
CPT/HCPCS: 99283; Z7502

== ENCOUNTER 2023-08-30 08:01 | Inpatient (IN) | payer MEDICARE, MEDICAID ==
[~2023-08-30] VITALS: Ht 172.7 cm; Wt 131.2 kg
[~2023-08-30 08:01] MED LIST changes: -AMOX1TAB16 PO; -ATOR20TA86 PO; -BENZ1TAB10 PO; +BENZ1TAB84 PO; -CHOL-35 PO; -HALO10 PO; +HALO10TA21 PO; -OMEG-135 PO; -RISPC50 IM
[2023-08-30] MEDS ORDERED: RISPC50 IM (08:11)
[2023-08-30 09:08] LABS: COVID AG,FIA SOURCE NASAL SWAB
[2023-08-30 09:21] LABS: BASOPHILS % (AUTO) 0.5 % (0.0-2.0); EOSINOPHILS % (AUTO) 0.3 % (1.0-6.0); HEMATOCRIT 48.4 % (41-53); HEMOGLOBIN 16.7 g/dL (13.5-17.5); LYMPHOCYTES # (AUTO) 2.8 K/uL (1.0-4.8); LYMPHOCYTES % (AUTO) 33.1 % (22.0-44.0); MEAN CORPUSCULAR HEMOGLOBIN 30.4 pg (26.0-34.0); MEAN CORPUSCULAR HGB CONC 34.5 G/dL (31.0-37.0); MEAN CORPUSCULAR VOLUME 88 fL (80-100); MONOCYTES # (AUTO) 0.5 K/uL (0.1-1.0); MONOCYTES % (AUTO) 5.9 % (2.0-9.0); NEUTROPHILS # (AUTO) 5.1 K/uL (1.8-7.7); NEUTROPHILS % (AUTO) 60.2 % (40.0-70.0); PLATELET COUNT (AUTO) 203 K/uL (150-450); RED BLOOD CELL COUNT(AUTO) 5.49 MIL/uL (4.50-5.90); RED CELL DISTRIBUTION WIDTH 13.9 % (11.5-14.5); WHITE BLOOD COUNT (AUTO) 8.5 K/uL (4.5-11.0)
[2023-08-30 09:24] LABS: ANION GAP 19 mmol/L (8-16); CALCIUM, TOTAL 10.1 mg/dL (8.8-10.5); CARBON DIOXIDE 22 mmol/L (22-29); CHLORIDE 104 mmol/L (98-107); GLOMERULAR FILTR. RATE CALC > 60 mL/min (>60); GLUCOSE,RANDOM 87 mg/dL (70-110); POTASSIUM 3.8 mmol/L (3.5-5.1); SODIUM SERUM 145 mmol/L (136-145); UREA NITROGEN, BLOOD 17 mg/dL (7-18)
[2023-08-30 09:35] LABS: SARS-COV2 (COVID) ANTIGEN,FIA Negative (Negative)
[2023-08-30 09:38] LABS: ALANINE AMINOTRANSFERASE 80 U/L (12-78); ALBUMIN 4.4 g/dL (3.4-5.0); ALKALINE PHOSPHATASE 113 U/L (46-116); ASPARTATE AMINOTRANSFERASE 36 U/L (15-37); BILIRUBIN,TOTAL 0.7 mg/dL (0.1-1.0); TOTAL PROTEIN, SERUM 8.8 g/dL (6.4-8.2)
[2023-08-30 10:18] LABS: ALCOHOL, BLOOD (SERUM) < 3 mg/dL (0-10)
[2023-08-30] MEDS ORDERED: ZOLPIDEM TARTRATE 10 MG TABLET PO PRN (14:30)
[2023-08-30] MEDS ORDERED: LORazepam 2 MG TABLET PO PRN (14:30)
[2023-08-30] MEDS ORDERED: HALOPERIDOL 5 MG TABLET PO PRN (14:30)
[2023-08-30 14:56] LABS: PH,URINE DRUG SCREEN 5.5 (5.0-8.0)
[2023-08-30 15:03] LABS: ALCOHOL, URINE DRUG SCREEN NEGATIVE (NEGATIVE); AMPHET/METH SCREEN,URINE NEGATIVE (NEGATIVE); BARBITURATE SCREEN, URINE NEGATIVE (NEGATIVE); BENZODIAZEPINES SCREEN,URINE NEGATIVE (NEGATIVE); CANNABINOID SCREEN,URINE NEGATIVE (NEGATIVE); COCAINE SCREEN,URINE NEGATIVE (NEGATIVE); METHADONE SCREEN, URINE NEGATIVE (NEGATIVE); OPIATE SCREEN,URINE NEGATIVE (NEGATIVE); PHENCYCLIDINE SCREEN,URINE NEGATIVE (NEGATIVE)
[2023-08-30] MEDS ORDERED: INFLUENZA VIRUS VACCINE QVS 2023-24 (6MO+)/PF 60 MCG/0.5 ML SYRINGE IM. ONE (16:30)
[2023-08-30 16:58] VITALS: BP 135/95; PULSE 109; RESP 19; TEMP 97.4
[2023-08-30 21:43] VITALS: BP 120/80; PULSE 78; RESP 18; TEMP 97.9
[2023-08-31] MEDS ORDERED: ACETAMINOPHEN 325 MG TABLET PO PRN (05:30)
[2023-08-31] MEDS ORDERED: BACITRACIN 28 GM OINTMENT TP PRN (05:30)
[2023-08-31] MEDS ORDERED: OMEPRAZOLE 20 MG CAPSULE PO PRN (05:30)
[2023-08-31] MEDS ORDERED: ALBUTEROL SULFATE HFA 90 MCG/PUFF 8 GM INHALER IH PRN (05:30)
[2023-08-31] MEDS ORDERED: IBUPROFEN 600 MG TABLET PO PRN (05:30)
[2023-08-31] MEDS ORDERED: DOCUSATE SODIUM 100 MG CAPSULE PO PRN (05:30)
[2023-08-31] MEDS ORDERED: CloNIDine HCL 0.1 MG TABLET PO PRN (05:30)
[2023-08-31] MEDS ORDERED: MAG HYDROX/ALUMINUM HYD/SIMETH ES 30 ML SUSPENSION UDCUP PO PRN (05:30)
[2023-08-31] MEDS ORDERED: BENZOCAINE/MENTHOL LOZENGE PO PRN (05:30)
[2023-08-31] MEDS ORDERED: MAGNESIUM HYDROXIDE SUSPENSION 30 ML UDCUP PO PRN (05:30)
[2023-08-31] MEDS ORDERED: LOPERAMIDE HCL 2 MG CAPSULE PO PRN (05:30)
[2023-08-31] MEDS ORDERED: ONDANSETRON HCL 4 MG TABLET PO PRN (05:30)
[2023-08-31] MEDS ORDERED: PETROLATUM,WHITE 28 GM JELLY TP PRN (05:30)
[2023-08-31 09:23] VITALS: BP 143/91; PULSE 112; RESP 18; TEMP 97.3
[2023-08-31 20:34] VITALS: BP 126/81; PULSE 102; RESP 18; TEMP 98.4
[2023-08-31 20:39] VITALS: BP 126/81; PULSE 102; RESP 18; TEMP 98.4
[2023-09-01 10:32] VITALS: BP 130/86; PULSE 98; RESP 18; TEMP 97.5
[2023-09-01 21:31] VITALS: BP 141/89; PULSE 91; RESP 18; TEMP 97.5
[2023-09-02 10:11] VITALS: BP 128/85; PULSE 84; RESP 18; TEMP 97.3
[2023-09-02 20:33] VITALS: BP 144/87; PULSE 100; RESP 18; TEMP 96.7
[2023-09-03 08:00] VITALS: BP 145/99; PULSE 110; RESP 18; TEMP 97.6
[2023-09-03 20:17] VITALS: BP 139/89; PULSE 92; RESP 18; TEMP 97.7
[2023-09-04 08:00] VITALS: BP 140/91; PULSE 73; RESP 18; TEMP 98.3
[2023-09-04] MEDS ORDERED: RisperiDONE MICROSPHERES 50 MG/2 ML SYRINGE IM SCH (09:15)
== END 2023-09-04 18:29 | disposition home or self-care (01) | DRG 885 ==
LOC: EMS 08:01 → 3EX 14:50
PROVIDERS: ADMIT Psychiatry & Neurology Psychiatry; ATTEND Psychiatry & Neurology Psychiatry
DX: F25.9 Schizoaffective disorder, unspecified (principal); R45.851 Suicidal ideations; Z68.41 Body mass index [BMI] 40.0-44.9, adult; F32.9 Major depressive disorder, single episode, unspecified; F41.9 Anxiety disorder, unspecified; Z20.822 Contact with and (suspected) exposure to COVID-19; E55.9 Vitamin D deficiency, unspecified; K59.00 Constipation, unspecified; G47.00 Insomnia, unspecified; E66.9 Obesity, unspecified; F17.200 Nicotine dependence, unspecified, uncomplicated; Z28.21 Immunization not carried out because of patient refusal; Z56.0 Unemployment, unspecified
CPT/HCPCS: 80053; 80307; 85025; 93005; 99285; G0378; G0480; J2794

== ENCOUNTER 2024-04-10 11:14 | Inpatient (IN) | payer MEDICARE, MEDICAID ==
[~2024-04-10] VITALS: Ht 172.7 cm; Wt 60.1 kg
[~2024-04-10 11:14] MED LIST changes: -BENZ1TAB84 PO; -HALO10TA21 PO; -MIRT-89 PO; -PARO-38 PO; +RISPC50 IM
[2024-04-10 11:43] LABS: BASOPHILS % (AUTO) 0.6 % (0.0-2.0); EOSINOPHILS % (AUTO) 0.8 % (1.0-6.0); HEMATOCRIT 50.3 % (41-53); HEMOGLOBIN 16.6 g/dL (13.5-17.5); LYMPHOCYTES # (AUTO) 3.1 K/uL (1.0-4.8); LYMPHOCYTES % (AUTO) 34.1 % (22.0-44.0); MEAN CORPUSCULAR HEMOGLOBIN 29.6 pg (26.0-34.0); MEAN CORPUSCULAR VOLUME 90 fL (80-100); MONOCYTES # (AUTO) 0.5 K/uL (0.1-1.0); MONOCYTES % (AUTO) 5.6 % (2.0-9.0); NEUTROPHILS # (AUTO) 5.3 K/uL (1.8-7.7); NEUTROPHILS % (AUTO) 58.9 % (40.0-70.0); PLATELET COUNT (AUTO) 228 K/uL (150-450); RED BLOOD CELL COUNT(AUTO) 5.61 MIL/uL (4.50-5.90); RED CELL DISTRIBUTION WIDTH 14.3 % (11.5-14.5)
[2024-04-10 11:44] LABS: COVID AG,FIA SOURCE NASAL SWAB
[2024-04-10 12:00] LABS: ANION GAP 20 mmol/L (8-16); CALCIUM, TOTAL 9.5 mg/dL (8.8-10.5); CARBON DIOXIDE 19 mmol/L (22-29); CHLORIDE 104 mmol/L (98-107); CREATININE 0.99 mg/dL (0.60-1.30); GLOMERULAR FILTR. RATE CALC > 60 mL/min (>60); GLUCOSE,RANDOM 93 mg/dL (70-110); POTASSIUM 3.6 mmol/L (3.5-5.1); SODIUM SERUM 143 mmol/L (136-145); UREA NITROGEN, BLOOD 20 mg/dL (7-18)
[2024-04-10 12:03] LABS: ALCOHOL, URINE DRUG SCREEN NEGATIVE (NEGATIVE); AMPHET/METH SCREEN,URINE NEGATIVE (NEGATIVE); BARBITURATE SCREEN, URINE NEGATIVE (NEGATIVE); BENZODIAZEPINES SCREEN,URINE NEGATIVE (NEGATIVE); CANNABINOID SCREEN,URINE NEGATIVE (NEGATIVE); COCAINE SCREEN,URINE NEGATIVE (NEGATIVE); METHADONE SCREEN, URINE NEGATIVE (NEGATIVE); OPIATE SCREEN,URINE NEGATIVE (NEGATIVE); PHENCYCLIDINE SCREEN,URINE NEGATIVE (NEGATIVE)
[2024-04-10 12:17] LABS: ALCOHOL, BLOOD (SERUM) < 3 mg/dL (0-10)
[2024-04-10 12:23] LABS: SARS-COV2 (COVID) ANTIGEN,FIA Negative (Negative)
[2024-04-10 18:03] VITALS: BP 138/98; PULSE 92; RESP 20; TEMP 98.2; O2SAT 98
[2024-04-10 22:07] VITALS: BP 149/109; PULSE 100; RESP 18; TEMP 97.8; O2SAT 18
[2024-04-11] MEDS ORDERED: MAG HYDROX/ALUMINUM HYD/SIMETH ES 30 ML SUSPENSION UDCUP PO PRN (05:45)
[2024-04-11] MEDS ORDERED: ALBUTEROL SULFATE HFA 90 MCG/PUFF 8 GM INHALER IH PRN (05:45)
[2024-04-11] MEDS ORDERED: LOPERAMIDE HCL 2 MG CAPSULE PO PRN (05:45)
[2024-04-11] MEDS ORDERED: DOCUSATE SODIUM 100 MG CAPSULE PO PRN (05:45)
[2024-04-11] MEDS ORDERED: CloNIDine HCL 0.1 MG TABLET PO PRN (05:45)
[2024-04-11] MEDS ORDERED: MAGNESIUM HYDROXIDE SUSPENSION 30 ML UDCUP PO PRN (05:45)
[2024-04-11] MEDS ORDERED: IBUPROFEN 600 MG TABLET PO PRN (05:45)
[2024-04-11] MEDS ORDERED: BACITRACIN 28 GM OINTMENT TP PRN (05:45)
[2024-04-11] MEDS ORDERED: OMEPRAZOLE 20 MG CAPSULE PO PRN (05:45)
[2024-04-11] MEDS ORDERED: PETROLATUM,WHITE 28 GM JELLY TP PRN (05:45)
[2024-04-11] MEDS ORDERED: LORazepam 2 MG TABLET PO PRN (05:45)
[2024-04-11] MEDS ORDERED: ZOLPIDEM TARTRATE 10 MG TABLET PO PRN (05:45)
[2024-04-11] MEDS ORDERED: BENZOCAINE/MENTHOL LOZENGE PO PRN (05:45)
[2024-04-11] MEDS ORDERED: ACETAMINOPHEN 325 MG TABLET PO PRN (05:45)
[2024-04-11] MEDS ORDERED: ONDANSETRON 4 MG TABLET PO PRN (05:45)
[2024-04-11] MEDS ORDERED: HALOPERIDOL 5 MG TABLET PO PRN (05:45)
[2024-04-11 09:28] VITALS: BP 112/74; PULSE 88; RESP 18; TEMP 97.6; O2SAT 98
[2024-04-11] MEDS: RisperiDONE MICROSPHERES 50 MG/2 ML SYRINGE IM SCH (18:22)
[2024-04-11 21:11] VITALS: BP 135/81; PULSE 107; RESP 18; TEMP 97.9; O2SAT 97
[2024-04-12 08:48] VITALS: BP 125/85; PULSE 76; RESP 18; TEMP 97.5; O2SAT 96
[2024-04-12 19:58] VITALS: BP 137/88; PULSE 106; RESP 16; TEMP 97.9; O2SAT 97
[2024-04-12 21:36] VITALS: BP 137/88; PULSE 106; RESP 16; TEMP 97.9; O2SAT 97
[2024-04-13 08:30] VITALS: BP 117/83; PULSE 82; RESP 17; TEMP 97.4; O2SAT 96
[2024-04-13 22:54] VITALS: BP 125/88; PULSE 109; RESP 20; TEMP 97.2; O2SAT 95
[2024-04-14 09:01] VITALS: BP 112/70; PULSE 65; RESP 18; TEMP 97.5; O2SAT 96
[2024-04-14 09:07] VITALS: BP 106/66; PULSE 81; RESP 18; TEMP 98.1; O2SAT 98
== END 2024-04-14 18:22 | disposition home or self-care (01) | DRG 885 ==
LOC: EMS 11:14 → 3EX 19:23
PROVIDERS: ADMIT Psychiatry & Neurology Psychiatry; ATTEND Psychiatry & Neurology Psychiatry
DX: F25.1 Schizoaffective disorder, depressive type (principal); R45.851 Suicidal ideations; E66.9 Obesity, unspecified; Z20.822 Contact with and (suspected) exposure to COVID-19; F17.200 Nicotine dependence, unspecified, uncomplicated; F41.9 Anxiety disorder, unspecified; G47.00 Insomnia, unspecified; K59.00 Constipation, unspecified; Z68.20 Body mass index [BMI] 20.0-20.9, adult
CPT/HCPCS: 80048; 80307; 85025; 99285; G0378; G0480; J2794

== ENCOUNTER 2024-07-15 17:25 | Inpatient (IN) | payer MEDICARE, MEDICAID ==
[~2024-07-15] VITALS: Ht 172.7 cm; Wt 126.6 kg
[2024-07-15 18:46] LABS: COVID AG,FIA SOURCE NASAL SWAB
[2024-07-15 18:55] LABS: BASOPHILS % (AUTO) 0.5 % (0.0-2.0); EOSINOPHILS % (AUTO) 0.5 % (1.0-6.0); HEMATOCRIT 45.4 % (41-53); HEMOGLOBIN 15.5 g/dL (13.5-17.5); LYMPHOCYTES # (AUTO) 2.8 K/uL (1.0-4.8); LYMPHOCYTES % (AUTO) 30.2 % (22.0-44.0); MEAN CORPUSCULAR HEMOGLOBIN 30.3 pg (26.0-34.0); MEAN CORPUSCULAR HGB CONC 34.3 G/dL (31.0-37.0); MEAN CORPUSCULAR VOLUME 89 fL (80-100); MONOCYTES # (AUTO) 0.6 K/uL (0.1-1.0); MONOCYTES % (AUTO) 6.1 % (2.0-9.0); NEUTROPHILS # (AUTO) 5.7 K/uL (1.8-7.7); NEUTROPHILS % (AUTO) 62.7 % (40.0-70.0); PLATELET COUNT (AUTO) 172 K/uL (150-450); RED BLOOD CELL COUNT(AUTO) 5.12 MIL/uL (4.50-5.90); RED CELL DISTRIBUTION WIDTH 13.6 % (11.5-14.5); WHITE BLOOD COUNT (AUTO) 9.1 K/uL (4.5-11.0)
[2024-07-15 19:12] LABS: SARS-COV2 (COVID) ANTIGEN,FIA Negative (Negative)
[2024-07-15 19:20] LABS: ANION GAP 11 mmol/L (8-16); CARBON DIOXIDE 29 mmol/L (22-29); CHLORIDE 101 mmol/L (98-107); CREATININE 0.96 mg/dL (0.60-1.30); GLOMERULAR FILTR. RATE CALC > 60 mL/min (>60); GLUCOSE,RANDOM 80 mg/dL (70-110); POTASSIUM 3.8 mmol/L (3.5-5.1); SODIUM SERUM 141 mmol/L (136-145); UREA NITROGEN, BLOOD 16 mg/dL (7-18)
[2024-07-15 19:23] LABS: ALCOHOL, BLOOD (SERUM) < 3 mg/dL (0-10)
[2024-07-15] MEDS: SODIUM CHLORIDE 0.9% 1,000 ML IV ONE (21:34)
[2024-07-15 22:05] LABS: ALCOHOL, URINE DRUG SCREEN NEGATIVE (NEGATIVE); AMPHET/METH SCREEN,URINE NEGATIVE (NEGATIVE); BARBITURATE SCREEN, URINE NEGATIVE (NEGATIVE); BENZODIAZEPINES SCREEN,URINE NEGATIVE (NEGATIVE); CANNABINOID SCREEN,URINE NEGATIVE (NEGATIVE); COCAINE SCREEN,URINE NEGATIVE (NEGATIVE); METHADONE SCREEN, URINE NEGATIVE (NEGATIVE); OPIATE SCREEN,URINE NEGATIVE (NEGATIVE); PHENCYCLIDINE SCREEN,URINE NEGATIVE (NEGATIVE)
[2024-07-15 23:00] VITALS: O2SAT 98
[2024-07-16] MEDS ORDERED: HALOPERIDOL 5 MG TABLET PO PRN (01:15)
[2024-07-16] MEDS ORDERED: ZOLPIDEM TARTRATE 10 MG TABLET PO PRN (01:15)
[2024-07-16] MEDS ORDERED: LORazepam 2 MG TABLET PO PRN (01:15)
[2024-07-16 03:06] VITALS: BP 128/77; PULSE 72; RESP 18; TEMP 97; O2SAT 99
[2024-07-16 09:07] VITALS: BP 114/69; PULSE 71; RESP 17; TEMP 96.8; O2SAT 96
[2024-07-16 21:07] VITALS: BP 121/80; PULSE 72; RESP 18; TEMP 97; O2SAT 100
[2024-07-17 08:52] VITALS: BP 120/66; PULSE 63; RESP 16; TEMP 98.4; O2SAT 99
[2024-07-17 20:31] VITALS: BP 125/80; PULSE 66; RESP 18; TEMP 97.5; O2SAT 96
[2024-07-18 08:20] VITALS: BP 138/93; PULSE 98; RESP 17; TEMP 97.6; O2SAT 96
[2024-07-18] MEDS ORDERED: IBUPROFEN 600 MG TABLET PO PRN (15:45)
[2024-07-18] MEDS ORDERED: LOPERAMIDE HCL 2 MG CAPSULE PO PRN (15:45)
[2024-07-18] MEDS ORDERED: BACITRACIN 28 GM OINTMENT TP PRN (15:45)
[2024-07-18] MEDS ORDERED: ALBUTEROL SULFATE HFA 90 MCG/PUFF 8 GM INHALER IH PRN (15:45)
[2024-07-18] MEDS ORDERED: DOCUSATE SODIUM 100 MG CAPSULE PO PRN (15:45)
[2024-07-18] MEDS ORDERED: OMEPRAZOLE 20 MG CAPSULE PO PRN (15:45)
[2024-07-18] MEDS ORDERED: MAGNESIUM HYDROXIDE SUSPENSION 30 ML UDCUP PO PRN (15:45)
[2024-07-18] MEDS ORDERED: ONDANSETRON 4 MG TABLET PO PRN (15:45)
[2024-07-18] MEDS ORDERED: PETROLATUM,WHITE 28 GM JELLY TP PRN (15:45)
[2024-07-18] MEDS ORDERED: ACETAMINOPHEN 325 MG TABLET PO PRN (15:45)
[2024-07-18] MEDS ORDERED: MAG HYDROX/ALUMINUM HYD/SIMETH ES 30 ML SUSPENSION UDCUP PO PRN (15:45)
[2024-07-18] MEDS ORDERED: BENZOCAINE/MENTHOL LOZENGE PO PRN (15:45)
[2024-07-18] MEDS ORDERED: CloNIDine HCL 0.1 MG TABLET PO PRN (15:45)
[2024-07-19 08:42] VITALS: BP 130/84; PULSE 89; RESP 17; TEMP 98; O2SAT 96
[2024-07-19 08:45] LABS: ALANINE AMINOTRANSFERASE 38 U/L (12-78); ALBUMIN 3.8 g/dL (3.4-5.0); ALKALINE PHOSPHATASE 117 U/L (46-116); ANION GAP 17 mmol/L (8-16); ASPARTATE AMINOTRANSFERASE 24 U/L (15-37); BILIRUBIN,TOTAL 0.7 mg/dL (0.1-1.0); CALCIUM, TOTAL 9.2 mg/dL (8.8-10.5); CARBON DIOXIDE 22 mmol/L (22-29); CHLORIDE 104 mmol/L (98-107); CREATININE 0.75 mg/dL (0.60-1.30); GLOMERULAR FILTR. RATE CALC > 60 mL/min (>60); GLUCOSE,RANDOM 73 mg/dL (70-110); PHOSPHORUS 4.4 mg/dL (2.5-4.9); POTASSIUM 3.8 mmol/L (3.5-5.1); SODIUM SERUM 143 mmol/L (136-145); TOTAL PROTEIN, SERUM 8.4 g/dL (6.4-8.2); UREA NITROGEN, BLOOD 13 mg/dL (7-18)
[2024-07-19 08:52] LABS: BASOPHILS % (AUTO) 0.3 % (0.0-2.0); EOSINOPHILS % (AUTO) 0.6 % (1.0-6.0); HEMATOCRIT 48.1 % (41-53); HEMOGLOBIN 16.4 g/dL (13.5-17.5); LYMPHOCYTES # (AUTO) 2.9 K/uL (1.0-4.8); LYMPHOCYTES % (AUTO) 37.1 % (22.0-44.0); MEAN CORPUSCULAR HEMOGLOBIN 30.2 pg (26.0-34.0); MEAN CORPUSCULAR HGB CONC 34.1 G/dL (31.0-37.0); MEAN CORPUSCULAR VOLUME 89 fL (80-100); MONOCYTES # (AUTO) 0.6 K/uL (0.1-1.0); MONOCYTES % (AUTO) 7.8 % (2.0-9.0); NEUTROPHILS # (AUTO) 4.2 K/uL (1.8-7.7); NEUTROPHILS % (AUTO) 54.2 % (40.0-70.0); PLATELET COUNT (AUTO) 179 K/uL (150-450); RED BLOOD CELL COUNT(AUTO) 5.43 MIL/uL (4.50-5.90); WHITE BLOOD COUNT (AUTO) 7.8 K/uL (4.5-11.0)
[2024-07-19] MEDS: PALIPERIDONE PALMITATE 234 MG/1.5 ML SYRINGE IM ONE (09:00)
[2024-07-19 20:15] VITALS: BP 116/74; PULSE 85; RESP 18; TEMP 96.5; O2SAT 96
[2024-07-19] MEDS: OLANZapine 5 MG RAPDIS TABLET PO SCH (20:46)
[2024-07-19] MEDS: INFLUENZA VIRUS VACCINE TVS (6MO+) 2024-25/PF 45 MCG/0.5 ML SYRINGE IM. ONE (20:46)
[2024-07-20 08:10] VITALS: BP 115/85; PULSE 105; RESP 18; TEMP 97; O2SAT 98
[2024-07-20] MEDS: FLUoxetine HCL 20 MG CAPSULE PO SCH (09:00)
[2024-07-20 20:28] VITALS: BP 125/66; PULSE 65; RESP 17; TEMP 97.2; O2SAT 95
[2024-07-21 08:13] VITALS: BP 118/90; PULSE 95; RESP 18; TEMP 97.7; O2SAT 96
[2024-07-21] MEDS ORDERED: [UNRECOGNIZED DRUG - CODE] IM (14:20)
[2024-07-23] MEDS ORDERED: PALIPERIDONE PALMITATE 156 MG/ML SYRINGE IM ONE (09:00)
== END 2024-07-21 12:25 | disposition home or self-care (01) | DRG 885 ==
LOC: EMS 17:25 → B2X 07-16 01:39
PROVIDERS: ADMIT Psychiatry & Neurology Child & Adolescent Psychiatry; ATTEND Psychiatry & Neurology Psychiatry
PROC: GZ56ZZZ Individual Psychotherapy, Supportive (ICD-10-PCS; principal; 2024-07-17)
PROC: GZHZZZZ Group Psychotherapy (ICD-10-PCS; 2024-07-17)
DX: F25.9 Schizoaffective disorder, unspecified (principal); R45.851 Suicidal ideations; Z68.41 Body mass index [BMI] 40.0-44.9, adult; G47.00 Insomnia, unspecified; K59.00 Constipation, unspecified; E66.9 Obesity, unspecified; F41.9 Anxiety disorder, unspecified; T43.596A Underdosing of other antipsychotics and neuroleptics, initial encounter; T43.226A Underdosing of selective serotonin reuptake inhibitors, initial encounter; F31.9 Bipolar disorder, unspecified; Z20.822 Contact with and (suspected) exposure to COVID-19; Z79.899 Other long term (current) drug therapy; Z72.0 Tobacco use; Z91.148 Patient's other noncompliance with medication regimen for other reason; Y92.89 Other specified places as the place of occurrence of the external cause; Z91.199 Patient's noncompliance with other medical treatment and regimen due to unspecified reason
CPT/HCPCS: 80048; 80053; 80307; 83735; 84100; 85025; G0480

== ENCOUNTER 2024-07-21 14:10 | Inpatient (IN) | payer MEDICARE, MEDICAID ==
[~2024-07-21] VITALS: Ht 170.2 cm; Wt 122.1 kg
[2024-07-21] MEDS ORDERED: [UNRECOGNIZED DRUG - CODE] IM (14:20)
[2024-07-21 14:24] LABS: COVID AG,FIA SOURCE NASAL SWAB
[2024-07-21 14:41] LABS: SARS-COV2 (COVID) ANTIGEN,FIA Negative (Negative)
[2024-07-21 14:46] LABS: BASOPHILS % (AUTO) 0.4 % (0.0-2.0); EOSINOPHILS % (AUTO) 0.5 % (1.0-6.0); HEMATOCRIT 50.1 % (41-53); LYMPHOCYTES # (AUTO) 3.9 K/uL (1.0-4.8); LYMPHOCYTES % (AUTO) 31.5 % (22.0-44.0); MEAN CORPUSCULAR HEMOGLOBIN 29.9 pg (26.0-34.0); MEAN CORPUSCULAR HGB CONC 33.9 G/dL (31.0-37.0); MEAN CORPUSCULAR VOLUME 88 fL (80-100); MONOCYTES # (AUTO) 0.9 K/uL (0.1-1.0); MONOCYTES % (AUTO) 7.1 % (2.0-9.0); NEUTROPHILS # (AUTO) 7.5 K/uL (1.8-7.7); NEUTROPHILS % (AUTO) 60.5 % (40.0-70.0); PLATELET COUNT (AUTO) 204 K/uL (150-450); RED BLOOD CELL COUNT(AUTO) 5.69 MIL/uL (4.50-5.90); RED CELL DISTRIBUTION WIDTH 14.1 % (11.5-14.5); WHITE BLOOD COUNT (AUTO) 12.4 K/uL (4.5-11.0)
[2024-07-21 15:02] LABS: ANION GAP 14 mmol/L (8-16); CALCIUM, TOTAL 9.7 mg/dL (8.8-10.5); CARBON DIOXIDE 26 mmol/L (22-29); CHLORIDE 100 mmol/L (98-107); CREATININE 1.13 mg/dL (0.60-1.30); GLOMERULAR FILTR. RATE CALC > 60 mL/min (>60); GLUCOSE,RANDOM 123 mg/dL (70-110); POTASSIUM 3.5 mmol/L (3.5-5.1); SODIUM SERUM 139 mmol/L (136-145); UREA NITROGEN, BLOOD 19 mg/dL (7-18)
[2024-07-21 15:09] LABS: ALCOHOL, BLOOD (SERUM) < 3 mg/dL (0-10)
[2024-07-21] MEDS ORDERED: ZOLPIDEM TARTRATE 10 MG TABLET PO PRN (16:15)
[2024-07-22 07:47] LABS: HEMOGLOBIN A1C 4.9 % (3.8-5.6)
[2024-07-22 07:56] LABS: CHOL/HDL RATIO 5.6 (4.2-7.3)
[2024-07-22 10:16] VITALS: O2SAT 97
[2024-07-22] MEDS ORDERED: MAGNESIUM HYDROXIDE SUSPENSION 30 ML UDCUP PO PRN (13:15)
[2024-07-22] MEDS ORDERED: HydrOXYzine PAMOATE 50 MG CAPSULE PO PRN (13:15)
[2024-07-22] MEDS: PALIPERIDONE PALMITATE 234 MG/1.5 ML SYRINGE IM ONE (13:15)
[2024-07-22] MEDS ORDERED: GuaiFENesin/D-METHORPHAN [SUGAR-FREE] 200-20MG/10 ML SYRUP UDCUP PO PRN (13:15)
[2024-07-22] MEDS ORDERED: PROMETHAZINE HCL 25 MG TABLET PO PRN (13:15)
[2024-07-22] MEDS ORDERED: TUBERCULIN, PURIFIED PROTEIN DERIVATIVE 5 TU/0.1 ML SYRINGE ID ONE (13:15)
[2024-07-22] MEDS ORDERED: LOPERAMIDE HCL 2 MG CAPSULE PO PRN (13:15)
[2024-07-22] MEDS ORDERED: MAG HYDROX/ALUMINUM HYD/SIMETH ES 30 ML SUSPENSION UDCUP PO PRN (13:15)
[2024-07-22 16:19] VITALS: BP 137/59; PULSE 126; RESP 18; TEMP 97.2; O2SAT 95
[2024-07-22] MEDS: THIAMINE 100 MG TABLET PO SCH (17:00)
[2024-07-22 20:48] VITALS: BP 127/89; PULSE 89; RESP 18; TEMP 98; O2SAT 100
[2024-07-22] MEDS: OLANZapine 5 MG RAPDIS TABLET PO SCH (21:00)
[2024-07-22] MEDS: MELATONIN 5 MG TABLET PO SCH (21:00)
[2024-07-23] MEDS: MULTIVITAMINS WITH MINERALS, THERAPEUTIC TABLET PO SCH (09:00)
[2024-07-23] MEDS: FOLIC ACID 1 MG TABLET PO SCH (09:00)
[2024-07-23] MEDS: NALTREXONE HCL 50 MG TABLET PO SCH (09:00)
[2024-07-23] MEDS: FLUoxetine HCL 20 MG CAPSULE PO SCH (09:00)
[2024-07-23] MEDS: OMEGA-3/DHA/EPA/FISH OIL 1,000 MG CAPSULE PO SCH (09:00)
[2024-07-23 09:37] VITALS: BP 112/75; PULSE 97; RESP 18; TEMP 97.7; O2SAT 100
[2024-07-23 10:34] LABS: HEMOGLOBIN A1C 4.9 % (3.8-5.6)
[2024-07-23 10:56] LABS: CHOL/HDL RATIO 5.5 (4.2-7.3); FREE T4 (FREE THYROXINE) 1.25 ng/dL (0.76-1.46); THYROID STIMULATING HORMONE 1.56 uIU/mL (0.36-3.74)
[2024-07-23 20:13] VITALS: BP 108/66; PULSE 98; RESP 18; TEMP 97; O2SAT 96
[2024-07-24 08:12] VITALS: BP 112/76; PULSE 75; RESP 16; TEMP 98.3; O2SAT 100
[2024-07-24 22:14] VITALS: BP 123/83; PULSE 100; RESP 16; TEMP 96.8; O2SAT 97
[2024-07-25 08:33] VITALS: BP 100/60; PULSE 84; RESP 18; TEMP 96.5; O2SAT 100
[2024-07-25] MEDS: LORazepam 2 MG TABLET PO PRN (08:38)
[2024-07-25] MEDS: HALOPERIDOL 5 MG TABLET PO PRN (08:38)
[2024-07-25 20:18] VITALS: BP 130/91; PULSE 102; RESP 18; TEMP 97.8; O2SAT 97
[2024-07-25] MEDS: OLANZapine 10 MG RAPDIS TABLET PO SCH (20:54)
[2024-07-26 08:30] VITALS: BP 123/74; PULSE 72; RESP 19; TEMP 97.5; O2SAT 98
[2024-07-26] MEDS: FLUoxetine HCL 20 MG CAPSULE PO SCH (09:00)
[2024-07-26] MEDS: PALIPERIDONE PALMITATE 156 MG/ML SYRINGE IM ONE (10:01)
[2024-07-26 20:15] VITALS: BP 113/61; PULSE 68; RESP 18; TEMP 97.6; O2SAT 98
[2024-07-26] MEDS: OLANZapine 10 MG RAPDIS TABLET PO SCH (20:31)
[2024-07-27 08:26] VITALS: BP 127/77; PULSE 61; RESP 17; TEMP 97.2; O2SAT 98
[2024-07-27] MEDS: FLUoxetine HCL 20 MG CAPSULE PO SCH (09:00)
[2024-07-27] MEDS: INFLUENZA VIRUS VACCINE TVS (6MO+) 2024-25/PF 45 MCG/0.5 ML SYRINGE IM. ONE (09:16)
[2024-07-27 20:20] VITALS: BP 125/76; PULSE 88; RESP 16; TEMP 98.3; O2SAT 96
[2024-07-28 08:26] VITALS: BP 111/66; PULSE 83; RESP 17; TEMP 97.7; O2SAT 97
[2024-07-28 21:11] VITALS: BP 116/82; PULSE 120; RESP 18; TEMP 97.4; O2SAT 98
[2024-07-29 08:22] VITALS: BP 129/69; PULSE 74; RESP 18; TEMP 98.1; O2SAT 97
[2024-07-29 09:53] LABS: BASOPHILS % (AUTO) 0.4 % (0.0-2.0); EOSINOPHILS % (AUTO) 0.9 % (1.0-6.0); HEMATOCRIT 44.1 % (41-53); LYMPHOCYTES # (AUTO) 2.2 K/uL (1.0-4.8); LYMPHOCYTES % (AUTO) 36.6 % (22.0-44.0); MEAN CORPUSCULAR HEMOGLOBIN 30.1 pg (26.0-34.0); MEAN CORPUSCULAR HGB CONC 34.1 G/dL (31.0-37.0); MEAN CORPUSCULAR VOLUME 88 fL (80-100); MONOCYTES # (AUTO) 0.4 K/uL (0.1-1.0); MONOCYTES % (AUTO) 6.5 % (2.0-9.0); NEUTROPHILS # (AUTO) 3.3 K/uL (1.8-7.7); NEUTROPHILS % (AUTO) 55.6 % (40.0-70.0); PLATELET COUNT (AUTO) 135 K/uL (150-450); RED CELL DISTRIBUTION WIDTH 13.8 % (11.5-14.5); WHITE BLOOD COUNT (AUTO) 5.9 K/uL (4.5-11.0)
[2024-07-29 10:09] LABS: ALANINE AMINOTRANSFERASE 184 U/L (12-78); ALBUMIN 3.3 g/dL (3.4-5.0); ALKALINE PHOSPHATASE 113 U/L (46-116); ANION GAP 7 mmol/L (8-16); ASPARTATE AMINOTRANSFERASE 80 U/L (15-37); BILIRUBIN,TOTAL 0.8 mg/dL (0.1-1.0); CALCIUM, TOTAL 9.1 mg/dL (8.8-10.5); CARBON DIOXIDE 32 mmol/L (22-29); CHLORIDE 100 mmol/L (98-107); CREATININE 0.84 mg/dL (0.60-1.30); GLOMERULAR FILTR. RATE CALC > 60 mL/min (>60); GLUCOSE,RANDOM 108 mg/dL (70-110); PHOSPHORUS 3.4 mg/dL (2.5-4.9); POTASSIUM 3.2 mmol/L (3.5-5.1); SODIUM SERUM 139 mmol/L (136-145); TOTAL PROTEIN, SERUM 7.2 g/dL (6.4-8.2); UREA NITROGEN, BLOOD 13 mg/dL (7-18)
[2024-07-29 20:37] VITALS: BP 107/72; PULSE 68; RESP 18; TEMP 97.8; O2SAT 96
[2024-07-30 08:19] VITALS: BP 119/73; PULSE 62; RESP 19; TEMP 97.3; O2SAT 99
[2024-07-30] MEDS: BuPROPion HCL XL 150 MG ER TABLET PO SCH (09:00)
[2024-07-30 20:03] VITALS: BP 121/60; PULSE 77; RESP 18; TEMP 98; O2SAT 98
[2024-07-31 08:18] VITALS: BP 118/69; PULSE 81; RESP 18; TEMP 98.1; O2SAT 98
[2024-07-31] MEDS: POTASSIUM CHLORIDE 20 MEQ ER TABLET PO ONE (13:01)
[2024-07-31 21:53] VITALS: BP 120/70; PULSE 65; RESP 18; TEMP 96.2; O2SAT 98
[2024-08-01 08:20] VITALS: BP 136/69; PULSE 70; RESP 19; TEMP 97.5; O2SAT 97
[2024-08-01 20:21] VITALS: BP 123/77; PULSE 76; RESP 18; TEMP 97.4; O2SAT 98
[2024-08-02 08:31] VITALS: BP 130/70; PULSE 80; RESP 18; TEMP 98.1; O2SAT 98
[2024-08-02] MEDS: ACETAMINOPHEN 325 MG TABLET PO PRN (20:29)
[2024-08-02 20:35] VITALS: BP 116/58; PULSE 69; RESP 16; TEMP 97.4; O2SAT 98
[2024-08-02 21:29] VITALS: RESP 18
[2024-08-03 07:53] VITALS: BP 120/62; PULSE 76; RESP 18; TEMP 97.3; O2SAT 98
[2024-08-03 08:00] VITALS: BP 100/62; PULSE 76; RESP 18; TEMP 97.3; O2SAT 98
[2024-08-03] MEDS: MIRTAZAPINE 15 MG TABLET PO SCH (20:52)
[2024-08-03 21:08] VITALS: BP 99/60; PULSE 90; RESP 18; TEMP 97.8; O2SAT 96
[2024-08-04 10:44] VITALS: BP 102/60; PULSE 83; RESP 17; TEMP 96.7; O2SAT 96
[2024-08-04 20:45] VITALS: BP 112/60; PULSE 70; RESP 18; TEMP 98; O2SAT 97
[2024-08-05 08:13] VITALS: BP 107/62; PULSE 89; RESP 18; TEMP 96.4; O2SAT 97
[2024-08-05 20:00] VITALS: BP 100/64; PULSE 100; RESP 16; TEMP 97.3; O2SAT 95
[2024-08-06 09:42] VITALS: BP 105/81; PULSE 80; RESP 18; TEMP 97.9; O2SAT 95
[2024-08-06 20:22] VITALS: BP 110/62; PULSE 96; RESP 18; TEMP 98.6; O2SAT 100
[2024-08-07 08:23] VITALS: BP 111/70; PULSE 96; RESP 19; TEMP 98.1; O2SAT 97
[2024-08-07 20:27] VITALS: BP 109/53; PULSE 65; RESP 16; TEMP 98.3; O2SAT 100
[2024-08-08 08:16] VITALS: BP 110/60; PULSE 69; RESP 16; TEMP 98.4; O2SAT 99
[2024-08-08] MEDS: RisperiDONE MICROSPHERES 50 MG/2 ML SYRINGE IM SCH (09:10)
[2024-08-08 20:04] VITALS: BP 117/77; PULSE 99; RESP 17; TEMP 97.9; O2SAT 96
[2024-08-08] MEDS ORDERED: BUPR-514 PO (21:22)
[2024-08-08] MEDS ORDERED: FLUO-177 PO (21:23)
[2024-08-08] MEDS ORDERED: MIRT-89 PO (21:24)
[2024-08-08] MEDS ORDERED: MELA5TAB21 PO (21:25)
[2024-08-08] MEDS ORDERED: OMEG100033 PO (21:31)
[2024-08-08] MEDS ORDERED: MULT-1303 PO (21:31)
[2024-08-09 08:21] VITALS: BP 118/77; PULSE 85; RESP 18; TEMP 97.8; O2SAT 96
== END 2024-08-09 11:15 | disposition home or self-care (01) | DRG 885 ==
LOC: EMS 14:10 → B2X 07-22 10:00
PROVIDERS: ADMIT Psychiatry & Neurology Psychiatry; ATTEND Psychiatry & Neurology Psychiatry
PROC: GZHZZZZ Group Psychotherapy (ICD-10-PCS; principal; 2024-07-22)
PROC: GZ58ZZZ Individual Psychotherapy, Cognitive-Behavioral (ICD-10-PCS; 2024-07-22)
PROC: GZ56ZZZ Individual Psychotherapy, Supportive (ICD-10-PCS; 2024-07-22)
DX: F25.1 Schizoaffective disorder, depressive type (principal); R45.851 Suicidal ideations; Z68.41 Body mass index [BMI] 40.0-44.9, adult; E66.9 Obesity, unspecified; F41.9 Anxiety disorder, unspecified; G47.00 Insomnia, unspecified; Z20.822 Contact with and (suspected) exposure to COVID-19; K59.00 Constipation, unspecified; Z72.0 Tobacco use; Z55.9 Problems related to education and literacy, unspecified; Z59.9 Problem related to housing and economic circumstances, unspecified; Z65.3 Problems related to other legal circumstances; Z63.9 Problem related to primary support group, unspecified
CPT/HCPCS: 80048; 80053; 80061; 83036; 83735; 84100; 84132; 84439; 84443; 85025; 86592; 93005; G0480; J2794